=== PATIENT | male | born 1945 | race Caucasian/White ===

== ENCOUNTER 2022-01-26 13:41 | Emergency (ER) | payer MEDICARE, SELFPAY ==
--- NOTE | ~2022-01-26 | XR_ITS ---
EXAMINATION: XR FOOT, LEFT CLINICAL INFORMATION: Dropped water bottle on foot COMPARISON: None TECHNIQUE: AP, lateral, and oblique views of the left foot. FINDINGS: The bones and soft tissues are unremarkable aside from some minimal degenerative changes at the interphalangeal joints. Vascular calcifications are seen. No fracture. Alignment is anatomic. Joint spaces are maintained. XR/XR foot LT min 3V IMPRESSION: No acute finding. No fractures detected.
[2022-01-26 15:27] VITALS: BP 120/60; PULSE 63; RESP 16; TEMP 35.9; O2SAT 99; BMI 21.3
--- NOTE | 2022-01-26 15:43 | ED.LOWEXIN ---
HPI - Extremity Injury (Lower) General Chief Complaint: Extremity Injury, Lower Stated Complaint: L foot inj Time Seen by Provider: 01/26/22 15:40 Source: patient Mode of arrival: ambulatory Limitations: no limitations History of Present Illness MD complaint: foot injury Onset (ago): day(s) (5) Injury: Left: foot and toes Type of Injury: blunt Place: home Severity: moderate Relieving factors: nothing Exacerbating factors: palpation Context: direct blow (dropped a water bottle on foot) Associated symptoms: swelling and other (some mild erythema but also ecchymosis of toes) Other symptoms: none Related Data Previous Rx's Medication Instructions Recorded doxycycline hyclate 100 mg tablet 100 mg PO BID 7 Days #14 tab 01/26/22 Allergies Allergy/AdvReac Type Severity Reaction Status Date / Time iodine [Iodine] Allergy Severe SOB Unverified 06/27/20 16:02 Iodinated Contrast Media Allergy Unknown UNKNOWN Unverified 06/27/20 16:02 [IV Dye, Iodine Containing Contrast ] Penicillins Allergy Unknown SCRATCH Unverified 06/27/20 16:02 TEST Review of Systems Review of Systems: Constitutional : No Fever, No Chills ENT/Mouth : No Ear Pain, No Hoarseness, No sore throat Eyes: No Eye Pain, No Swelling, No Redness, No Foreign Body Cardiovascular : No Chest Pain, No SOB Respiratory : No Cough, No Dyspnea Gastrointestinal : No Nausea, No Vomiting, No Diarrhea, No abdominal Pain Genitourinary : No Dysuria, No Hematuria Musculoskeletal : positive joint pain, No Myalgias, pos Joint Swelling Skin : No Skin lacerations, pos rash Neuro : No Weakness, No Numbness, No Loss of Consciousness, No Dizziness, No Headache Psych : No Anxiety/Panic, No Depression [facility] Past Medical History Attestation statement: The following information was validated with the patient. Medical History Afib FH: mitral valve repair High cholesterol Leg edema Surgical History (Updated 01/26/22 @ 15:36 by Lucita Kamara) Aortic valve replaced History of appendectomy Social History Social History Patient Tobacco Use Status: Never used Tobacco Advance Directives: No Advance Directives Information Provided: No Physical Exam Vital Signs: Vital Signs: Last Vital Signs Temp 96.7 F L 01/26/22 15:27 Pulse 63 01/26/22 15:27 Resp 16 01/26/22 15:27 BP 120/60 01/26/22 15:27 Pulse Ox 99 01/26/22 15:27 BMI result Body Mass Index 21.3 Appearance: Alert. Oriented X3. No acute distress. Eyes: Pupils equal, round and reactive to light. ENT: Pharynx normal. Neck: Normal inspection. Neck supple. CVS: Pulses normal. Respiratory: No respiratory distress. Abdomen: Soft and non-tender. Skin: Skin warm and dry. Normal skin color. Normal skin turgor. Extremities: bilateral legs 1+ pitting edema, L foot on dorsum mild ecchymosis distal on dorsum including 2/3/4th toes with ttp, BCR in all digits SILT intact, on dorsum of foot mild erythema noted with some warmth small 3cm patch Neuro: Oriented X 3. No motor deficit. No sensory deficit. Course Course Course Narrative: will start on doxy for mild erythema MDM - Extremity Injury (Lower) MDM Narrative Medical decision making narrative: 76 yo male with afib on eliquis, MVR, HLD here with c/o L foot pain bruising and mild erythema after dropping a water bottle on his foot 5 days ago. He is NV intact. At this time will obtain xrays to r/o fracture. Given mild erythema will start on doxycycline for possible early cellulitis. Dispo per results and findings. Discharge Plan Discharge Clinical Impression: Cellulitis Qualifiers: Site of cellulitis: extremity Site of cellulitis of extremity: lower extremity Laterality: left Qualified Code(s): L03.116 - Cellulitis of left lower limb Contusion Qualifiers: Encounter type: initial encounter Contusion area: foot Laterality: left Qualified Code(s): S90.32XA - Contusion of left foot, initial encounter Patient Disposition: Home, Self-Care Instructions: Cellulitis (ED), Contusion in Adults (ED) Additional Instructions: return to ED for any worsening symptoms or concerns continue to monitor the redness and make sure it does not spread or go up your leg. monitor for fevers given dose of antibiotics for tonight while in the emergency department do not start until 01/27 AP, lateral, and oblique views of the left foot. FINDINGS: The bones and soft tissues are unremarkable aside from some minimal degenerative changes at the interphalangeal joints. Vascular calcifications are seen. No fracture. Alignment is anatomic. Joint spaces are maintained.? XR/XR foot LT min 3V IMPRESSION: No acute finding. No fractures detected. Prescriptions: New doxycycline hyclate 100 mg tablet 100 mg PO BID 7 Days Qty: 14 0RF Rx Instructions: take with food and a full glass of water
== END 2022-01-26 17:59 | disposition home or self-care (01) ==
PROVIDERS: Emergency Provider Emergency Medicine; PCP Internal Medicine
DX: S90.32XA Contusion of left foot, initial encounter (principal); L03.116 Cellulitis of left lower limb; Y29.XXXA Contact with blunt object, undetermined intent, initial encounter; Y93.9 Activity, unspecified; Y92.9 Unspecified place or not applicable; Y99.9 Unspecified external cause status; Z79.899 Other long term (current) drug therapy
CPT/HCPCS: 73630; 99283

== ENCOUNTER 2022-02-08 10:54 | Emergency (ER) | payer MEDICARE, SELFPAY ==
[2022-02-08 11:02] VITALS: BP 105/33; PULSE 66; RESP 18; TEMP 36.8; O2SAT 96; BMI 22.4
--- NOTE | 2022-02-08 12:30 | ED_ITS ---
HPI - Skin/Abscess/Foreign Bdy General Chief complaint: Skin/Abscess/Foreign Body Stated complaint: l foot inj Time Seen by Provider: 02/08/22 12:20 Source: patient Mode of arrival: ambulatory Limitations: no limitations History of Present Illness HPI narrative: 76 y/o male with recent left foot cellulitis and hematoma, history of MV replacement on Eliquis who presents to the ER for evaluation of left foot discol oration with concern for worsening cellulitis. He completed a course of doxycycline and was recently started on kelfex by his PCP. The area was marked with a marker and he was told to come to the ER if the redness spread byond the marked area. He thinks there is some redness to the lateral aspect of the foot and 2 small areas on the top of the foot. He also reports an itchy red patch on his left hand and red, itchy skin in the right AC here he had blood drawn last week. He has been putting hydrocortisone on it. MD complaint: rash, lesion and discoloration Onset (ago): day(s) Tetanus up to date: yes Location: RUE, L hand and L foot Severity: mild Severity scale (1-10): 3 Quality: aching and pruritic Pain Consistency: intermittent Relieving factors: medication Exacerbating factors: palpation Context: new medication and recent antibiotic Associated symptoms: denies other symptoms Treatments prior to arrival: bandages, OTC topical medication and antibiotic Related Data Previous Rx's Medication Instructions Recorded doxycycline hyclate 100 mg tablet 100 mg PO BID 7 Days #14 tab 01/26/22 Allergies Allergy/AdvReac Type Severity Reaction Status Date / Time iodine [Iodine] Allergy Severe SOB Verified 02/08/22 11:11 Iodinated Contrast Media Allergy Unknown UNKNOWN Verified 02/08/22 11:11 [IV Dye, Iodine Containing Contrast ] Penicillins Allergy Unknown SCRATCH Verified 02/08/22 11:11 TEST Review of Systems Review of Systems: Constitutional: No Fever, No Chills Cardiovascular: No Chest Pain, No SOB, + Edema Respiratory: No Cough, No Sputum, No Wheezing, No dyspnea Gastrointestinal: No Nausea, No Vomiting, No Diarrhea, No abdominal Pain Musculoskeletal: No joint pain, No Myalgias Skin:+Skin Lesions, +rash Neuro: No Weakness, No Numbness, No Dizziness, No Headache Psych: + Anxiety/Panic, No Depression Heme/Lymph: + Bruising, No Lymphadenopathy Endocrine: No Polyuria, No Polydipsia [facility] Past Medical History Medical History Afib FH: mitral valve repair High cholesterol Leg edema Surgical History Aortic valve replaced History of appendectomy Social History Social History Patient Tobacco Use Status: Never used Tobacco Advance Directives: No Advance Directives Information Provided: Yes Physical Exam Vital Signs: Vital Signs: Last Vital Signs Temp 98.3 F 02/08/22 11:02 Pulse 66 02/08/22 11:02 Resp 18 02/08/22 11:02 BP 105/33 L 02/08/22 11:02 Pulse Ox 96 02/08/22 11:02 BMI result Body Mass Index 22.4 Appearance: Alert. Oriented X3. No acute distress. HEENT: normal inspection CVS: Normal heart rate and rhythm. Pulses normal. Respiratory: No respiratory distress. Skin: Skin warm and dry. Normal skin color. Normal skin turgor. No rashes. Extremities: left foot with mild discoloration of the top of the foot that does not extend beyond the marked area, warm to the touch, similar to the lower leg which has chronic venous stasis changes. 2+ PD and DP pulses. no swelling or tenderness. left thumb with a small red patch of excoriated skin, nontender. right AC area with erythematous maclopapular rash Neuro: Oriented X 3. No motor deficit. No sensory deficit.steady gait Course Course Course Narrative: 76 y/o male with left foot hematoma and mild cellulitis presenting to the ER for re-evaluation given persistent redness to the foot and concern for possible worsening infection. On examination there is low clinical suspicion for spreading cellulitis. Exam is more consistent with resolving hematoma with skin changes. Will get labs for patient reassurance. Reevaluation(s) Reevaluation #1: Patient seen and evaluated by Dr. Garcia per patient request. He has no leukocytosis. He was reassured and counseled on management of his foot and other skin issues. His labs are unremarkable. Stable for d/c home with plan to f/u with his PCP in 2 days as scheduled. MDM - Skin/Abscess/Foreign Bdy Lab Data Result diagrams: 02/08/22 13:07 02/08/22 13:07 Labs: Lab Results 02/08/22 02/08/22 02/08/22 Range/Units 13:07 13:07 13:07 WBC 6.5 (4.8-10.8) X10*3/uL RBC 4.01 L (4.60-5.80) X10*6/uL Hgb 12.2 L (14.0-18.0) g/dl Hct 38.7 L (42.0-52.0) % MCV 96.5 (80.0-98.0) fL MCH 30.4 (27.0-33.0) pg MCHC 31.5 (31.0-36.0) g/dl RDW 13.3 (11.0-16.0) % Plt Count 196 (160-400) X10*3/uL MPV 10.2 (9.4-12.4) fL Immature Gran % (Auto) 0.2 (0.0-0.4) % Neut % (Auto) 63.3 (45-73) % Lymph % (Auto) 15.8 L (20-40) % Grundy % (Auto) 16.7 H (2-11) % Eos % (Auto) 3.7 (0-4) % Baso % (Auto) 0.3 (0-2) % Lymph # (Auto) 1.0 L (1.2-4.9) X10*3/uL Grundy # (Auto) 1.1 (0.1-1.2) X10*3/uL Eos # (Auto) 0.2 (0.0-0.4) X10*3/uL Baso # (Auto) 0.0 (0.0-0.2) X10*3/uL Abs Immat Gran (auto) 0.01 (0.00-0.03) X10*3/uL Absolute Neuts (auto) 4.1 (2.0-8.3) x10*3/uL Absolute Nucleated RBC 0.000 (0.0-0.012) X10*3/uL Nucleated RBC % (auto) 0.0 (0.0-0.2) /100WBC ESR 10 (0-15) MM/HR Sodium 142 (135-145) mmol/L Potassium 4.4 (3.3-5.1) mmol/L Chloride 107 (96-108) mmol/L Carbon Dioxide 26 (22-29) mmol/L Anion Gap 13 (12-20) BUN 25 H (9-16) mg/dL Creatinine 1.07 (0.5-1.4) mg/dL Estim Creat Clear Calc 60.2 Estimated GFR > 60 Random Glucose 77 (60-115) mg/dL Calcium 9.2 (8.4-10.2) mg/dL C-Reactive Protein 0.34 (< or = 0.50) mg/dL Critical Care Time Critical Care Time Critical Care Time: No Discharge Plan Discharge Clinical Impression: Contact dermatitis, Hematoma Patient Disposition: Home, Self-Care Instructions: Contact Dermatitis (DC) Additional Instructions: Your blood workup today was unremarkable. The discoloration on your foot is most likely resolving hematoma (or collection of blood from the minor trauma) rather than infection. Recommend completing the course of previously prescribed antibiotics. Elevate your foot when possible. For the redness on your left hand and right arm, recommend using topical hydrocortisone cream to the area 2-3 times per day until improved. Follow up with your provider as scheduled on Wednesday. Prescriptions: No Action doxycycline hyclate 100 mg tablet 100 mg PO BID 7 Days Qty: 14 0RF Rx Instructions: take with food and a full glass of water
[2022-02-08 13:11] LABS: MANUAL DIFF FLAG NO
[2022-02-08 13:12] LABS: Basophils Percent Auto 0.3 % (0-2); Eosinophils Absolute Auto 0.2 X10*3/uL (0.0-0.4); Eosinophils Percent Auto 3.7 % (0-4); Hematocrit 38.7 % (42.0-52.0); Hemoglobin 12.2 g/dl (14.0-18.0); Imm Gran Abs Auto 0.01 X10*3/uL (0.00-0.03); Imm Gran Pct Auto 0.2 % (0.0-0.4); Lymphocytes Percent Auto 15.8 % (20-40); Mean Corpuscular HGB Conc 31.5 g/dl (31.0-36.0); Mean Corpuscular Hemoglobin 30.4 pg (27.0-33.0); Mean Corpuscular Volume 96.5 fL (80.0-98.0); Mean Platelet Volume 10.2 fL (9.4-12.4); Monocytes Absolute Auto 1.1 X10*3/uL (0.1-1.2); Monocytes Percent Auto 16.7 % (2-11); Neutrophils Absolute Auto 4.1 x10*3/uL (2.0-8.3); Neutrophils Percent Auto 63.3 % (45-73); Platelet Count 196 X10*3/uL (160-400); Red Blood Count 4.01 X10*6/uL (4.60-5.80); Red Cell Distribution Width 13.3 % (11.0-16.0); White Blood Count 6.5 X10*3/uL (4.8-10.8)
[2022-02-08] MEDS: cephALEXin 500 MG CAPSULE PO (13:37)
[2022-02-08 13:50] LABS: Anion Gap 13 (12-20); Blood Urea Nitrogen 25 mg/dL (9-16); C Reactive Protein 0.34 mg/dL (< or = 0.50); Calcium 9.2 mg/dL (8.4-10.2); Carbon Dioxide 26 mmol/L (22-29); Chloride 107 mmol/L (96-108); Creatinine Clr Calc Pharmacy 60.2; Erythrocyte Sedimentation Rate 10 MM/HR (0-15); Estimated Glomerular Filt Rate > 60; Glucose Random 77 mg/dL (60-115); Potassium 4.4 mmol/L (3.3-5.1); Sodium 142 mmol/L (135-145)
== END 2022-02-08 14:00 | disposition home or self-care (01) ==
PROVIDERS: Physician Assistant; Emergency Provider Emergency Medicine; PCP Internal Medicine
DX: S90.32XA Contusion of left foot, initial encounter (principal); L25.9 Unspecified contact dermatitis, unspecified cause; I48.91 Unspecified atrial fibrillation; Z95.2 Presence of prosthetic heart valve; Z79.01 Long term (current) use of anticoagulants; X58.XXXA Exposure to other specified factors, initial encounter; Y93.9 Activity, unspecified; Y92.9 Unspecified place or not applicable; Y99.9 Unspecified external cause status
CPT/HCPCS: 36415; 80048; 85025; 85652; 86140; 99283

== ENCOUNTER 2022-04-12 08:47 | Emergency (ER) | payer MEDICARE, SELFPAY ==
--- NOTE | ~2022-04-12 | XR_ITS ---
EXAMINATION: XR CHEST CLINICAL INFORMATION: Infected pacemaker. COMPARISON: October 11, 2015 TECHNIQUE: 2 views of the chest were obtained. FINDINGS: Lungs are hyperinflated with prominence of the pulmonary arteries consistent with some degree of COPD. Dual-chamber pacemaker in place. No gas is seen adjacent to the pacemaker powerpack. There is no acute processes within the chest. No pneumothorax or pleural effusion. Heart normal size. Status post median sternotomy and aortic valve replacement. Cardiac recorder in place. XR/XR chest 2V IMPRESSION: No acute disease.
[2022-04-12 10:57] VITALS: BP 111/43; PULSE 59; RESP 18; TEMP 36.6; O2SAT 97; BMI 21.7
--- NOTE | 2022-04-12 12:10 | ED.GENADULT ---
HPI - General Adult General Chief complaint: General Medical Stated complaint: L shoulder inj Time Seen by Provider: 04/12/22 11:56 Source: patient Mode of arrival: ambulatory Limitations: no limitations History of Present Illness HPI narrative: 76 yold male presents to the ED for evaluation of left chest wound s/p pace maker placement this past wednesday at [facility]. patient states no fever, chills, nausea, vomttng, pus discharge, or redness since surgery. patient states just same ecchymosis since surgery. patent stats no chest pain, shorntess of breath, foul odor. Related Data Home Medications Medication Instructions Recorded Confirmed apixaban 5 mg tablet (Eliquis) 5 mg PO BID 03/05/22 atorvastatin 10 mg tablet 10 mg PO DAILY 03/05/22 clindamycin HCl 150 mg capsule 150 mg PO QID 03/05/22 furosemide 20 mg tablet 20 mg PO DAILY 03/05/22 hydrocortisone 2.5 % topical topical 03/05/22 ointment metoprolol succinate 200 mg 200 mg PO DAILY 03/05/22 tablet,extended release 24 hr vitamins A,C,U-cuec-dkpwcw 14,320 1 cap PO BID 03/05/22 unit-226 mg-200 unit capsule (PreserVision AREDS) Previous Rx's Medication Instructions Recorded doxycycline hyclate 100 mg tablet 100 mg PO BID 7 days #14 tabs 01/26/22 Allergies Allergy/AdvReac Type Severity Reaction Status Date / Time iodine [Iodine] Allergy Severe SOB Verified 03/05/22 16:35 Iodinated Contrast Media Allergy Unknown UNKNOWN Verified 02/08/22 11:11 [IV Dye, Iodine Containing Contrast ] Review of Systems Review of Systems: LEft chest wound evaluation. no complaint Yes all other systems are reviewed and are negative [facility] Past Medical History Medical History Afib FH: mitral valve repair High cholesterol Leg edema Surgical History Aortic valve replaced History of appendectomy Social History Social History Patient Tobacco Use Status: Never used Tobacco Advance Directives: No Advance Directives Information Provided: No Physical Exam ED Vital Signs: Vital Signs - 24 hr 04/12/22 10:57 Temperature 98 F Pulse Rate 59 Respiratory Rate 18 Blood Pressure 111/43 L Pulse Oximetry 97 Oxygen Delivery Method Room Air BMI result Body Mass Index 21.7 Const General: cooperative, healthy appearing, comfortable, no acute distress, well developed, alert and awake Orientation/consciousness: patient oriented x3 [facility] Head: Yes normal to inspection, Yes No palpable skull fracture present, Yes normocephalic, Yes atraumatic and No abrasion Eyes General: appearance normal, both eyes and all related structures Neck Neck: Yes normal visual inspection, Yes full ROM, Yes no lymphadenopathy, Yes no meningeal signs, Yes trachea midline, Yes supple, No anterior neck swelling and No tender Chest Other: Chest palpation & inspection: normal inspection of the chest and normal palpation of entire chest wall Chest/axillae images: 1. healing pace maker wound. no erythema, pus discharge, foul odor, crepitus, or tenderness. Positive for healing ecchymosis Resp Effort & Inspection: normal respiratory effort and able to speak in complete sentences Auscultation: clear to auscultation bilaterally Cardio Jugular venous distension: no JVD Heart sounds: S1 normal heart sound present and S2 normal heart sound present GI Inspection: Yes normal to inspection and No abdominal wall ecchymosis Palpation (GI): Soft to palpation, not firm, nontender and no guarding General: No CVA tenderness and Yes no CVA tenderness Back/Spine/Pelvis Back: no CVA tenderness, No CVA tenderness and No back tenderness Skin General skin exam: no rashes or lesions noted and elasticity normal Neuro General: patient oriented x3, gait normal, tone normal, no meningeal signs and CN's II-XI intact bilaterally Cranial nerves: Yes CN's II-XII intact bilaterally Extrem Other: lower extremities negative for swelling, pitting edema, calf tenderness. General: Yes normal to inspection and Yes full ROM Psych Other: lower extremity negative for swelling, pitting edema, calf tenderness. Appearance: grossly normal, well kempt and not disheveled Course Course Course Narrative: Wound evaluated x-ray ordered. Reevaluation(s) Reevaluation #1: X-ray does not show any displacement, destroyed pacemaker, or any osteomyelitis. No signs of infection. Vital signs are stable. Patient denies any chest pain or shortness of breath. No need for any blood work or any cardiac/ pulmonary evaluation. not suspecting PE, myocardial infarction, or pneumonia. Patient does not have any chest pain, pleurisy, shortness of breath, leg swelling, calf pain, coughing up blood, weakness, or dizziness. Patient informed to follow-up with cardiac surgeon and dispatcher refinery at [facility] Wednesday. Patient agreeable with plan. Time: 12:34 Discharge Plan Discharge Clinical Impression: Encounter for wound re-check, Ecchymosis Patient Disposition: Home, Self-Care Instructions: Wound Healing and Your Diet (ED), Ecchymosis (ED) Additional Instructions: your wound does not look infected. Wound is healing. Return to ED for any redness, pus discharge, foul odor, swelling, fever, chills, chest pain, shortness of breath, leg swelling, calf pain, coughing up blood, or any other concerning symptoms. please follow-up with the dispatcher refinery and cardiac thoracic surgeon at [facility] . Prescriptions: No Action doxycycline hyclate 100 mg tablet 100 mg PO BID 7 Days Qty: 14 0RF Rx Instructions: take with food and a full glass of water Eliquis 5 mg tablet 5 mg PO BID hydrocortisone 2.5 % ointment topical atorvastatin 10 mg tablet 10 mg PO DAILY furosemide 20 mg tablet 20 mg PO DAILY metoprolol succinate 200 mg tablet extended release 24 hr 200 mg PO DAILY clindamycin HCl 150 mg capsule 150 mg PO QID PreserVision AREDS 14,320-226-200 [id number] capsule 1 cap PO BID Interventions: ED Discharge Assessment Last Done: 04/12/22 12:43 Discharge Date/Time: 04/12/22 12:44 Print Language: Ukrainian
== END 2022-04-12 12:44 | disposition home or self-care (01) ==
PROVIDERS: Emergency Provider Emergency Medicine Emergency Medical Services; PCP Internal Medicine
DX: S20.212A Contusion of left front wall of thorax, initial encounter (principal); X58.XXXA Exposure to other specified factors, initial encounter; Y93.9 Activity, unspecified; Y92.9 Unspecified place or not applicable; Y99.9 Unspecified external cause status; Z79.899 Other long term (current) drug therapy; Z48.00 Encounter for change or removal of nonsurgical wound dressing
CPT/HCPCS: 71046; 99282; 99283

== ENCOUNTER 2023-03-20 07:49 | Emergency (ER) | payer MEDICARE, SELFPAY ==
[2023-03-20 07:52] VITALS: BP 124/44; PULSE 65; RESP 19; TEMP 36.6; O2SAT 98; BMI 23.1
--- NOTE | 2023-03-20 08:14 | ED_ITS ---
HPI - Wound/Laceration General Chief Complaint: Wound/Laceration Stated Complaint: arm infection Time Seen by Provider: 03/20/23 07:54 Source: patient Mode of arrival: ambulatory Limitations: no limitations History of Present Illness HPI narrative: Patient had a right arm infection which left a small papule behind after taking 10 days of doxy. Patient concerned that he needed more abx. Onset (ago): week(s) Location: other (right arm) Related Data Home Medications Medication Instructions Recorded Confirmed apixaban 5 mg tablet (Eliquis) 5 mg PO BID 03/05/22 07/10/22 atorvastatin 10 mg tablet 10 mg PO DAILY 03/05/22 07/10/22 clindamycin HCl 150 mg capsule 150 mg PO QID 03/05/22 07/10/22 furosemide 20 mg tablet 20 mg PO DAILY 03/05/22 07/10/22 hydrocortisone 2.5 % topical topical 03/05/22 07/10/22 ointment metoprolol succinate 200 mg 200 mg PO DAILY 03/05/22 07/10/22 tablet,extended release 24 hr vitamins A,C,I-fbhl-frxtkf 4,296 1 cap PO BID 03/05/22 07/10/22 mcg-226 mg-90 mg capsule (PreserVision AREDS) Previous Rx's Medication Instructions Recorded doxycycline hyclate 100 mg tablet 100 mg PO BID 7 days #14 tabs 01/26/22 hydrocortisone 1 % topical cream 1 appl topical TID PRN skin 07/10/22 irritation #28.35 grams Allergies Allergy/AdvReac Type Severity Reaction Status Date / Time iodine [Iodine] Allergy Severe SOB Verified 03/20/23 07:52 Iodinated Contrast Media Allergy Unknown UNKNOWN Verified 03/20/23 07:52 [IV Dye, Iodine Containing Contrast ] Review of Systems Review of Systems: Yes all other systems are reviewed and are negative Neurologic: Denies Sensory deficit (Neuro) [facility] Past Medical History Medical History Afib FH: mitral valve repair High cholesterol Leg edema Surgical History Aortic valve replaced History of appendectomy Social History Social History Patient Tobacco Use Status: Never used Tobacco Advance Directives: No Advance Directives Information Provided: No Physical Exam Vital Signs: Vital Signs: Last Vital Signs Temp 98 F 03/20/23 07:52 Pulse 65 03/20/23 07:52 Resp 19 03/20/23 07:52 BP 124/44 L 03/20/23 07:52 Pulse Ox 98 03/20/23 07:52 O2 Del Method Room Air 03/20/23 07:52 BMI result Body Mass Index 23.1 Const: General: healthy appearing Nutritional Appearance: average body habitus Orientation/consciousness: oriented to person and patient oriented x3 Limitations: no limitations HEENT: Head: Yes normal to inspection Ears: external ears normal General nose exam: Normal external nose present Mouth: Normal oral and palatal mucosa present and oropharynx normal Throat: Yes posterior oropharynx normal Eyes: General: appearance normal, both eyes and all related structures Neck: Other: supple Neck: Yes normal visual inspection Chest: Chest palpation & inspection: normal inspection of the chest Resp: Auscultation: clear to auscultation bilaterally Cardio: Jugular venous distension: no JVD Rate: regular rate Rhythm: regular rhythm Heart sounds: S1 normal heart sound present and S2 normal heart sound present GI: Inspection: Yes normal to inspection Palpation (GI): Soft to palpation, nontender and No hepatosplenomegaly present Auscultation: normal bowel sounds : General: Yes no CVA tenderness Back/Spine/Pelvis: Back: no CVA tenderness Skin: Other: right forearm with well healed papule no infection Neuro: General: oriented to person and patient oriented x3 Cranial nerves: Yes CN's II-XII intact bilaterally Motor exam (neuro): 5/5 motor strength present throughout Sensory Exam: No Sensory deficit (Neuro) Extrem: General: Yes normal to inspection Psych: Appearance: grossly normal Course Reevaluation(s) Reevaluation #1: Patient with well healed wound, no need for further work up Time: 08:19 Medical Decision Making Differential Diagnosis Differential Diagnoses: The differential diagnosis associated with the presentation includes (papule, infection) Tests considered The following testing was considered but not selected: CBC and chem were considered but the arm did not look infected at this time Prescription Management I considered prescription management with: Antibiotic (doxy but not infected at this time) Discharge Plan Discharge Clinical Impression: Benign papule Patient Disposition: Home, Self-Care Prescriptions: No Action doxycycline hyclate 100 mg tablet 100 mg PO BID 7 Days Qty: 14 0RF Rx Instructions: take with food and a full glass of water Eliquis 5 mg tablet 5 mg PO BID hydrocortisone 2.5 % ointment topical atorvastatin 10 mg tablet 10 mg PO DAILY furosemide 20 mg tablet 20 mg PO DAILY metoprolol succinate 200 mg tablet extended release 24 hr 200 mg PO DAILY clindamycin HCl 150 mg capsule 150 mg PO QID PreserVision AREDS 14,320-226-200 [id number] capsule 1 cap PO BID hydrocortisone 1 % cream 1 appl topical TID PRN (Reason: skin irritation) Qty: 28.35 0RF Referrals: Juice Lai MD [Primary Care Provider] - 1 week
== END 2023-03-20 08:50 | disposition home or self-care (01) ==
PROVIDERS: Emergency Provider Emergency Medicine; PCP Internal Medicine
DX: R23.8 Other skin changes (principal); I48.91 Unspecified atrial fibrillation; E78.5 Hyperlipidemia, unspecified; R60.0 Localized edema; Z95.2 Presence of prosthetic heart valve; Z79.01 Long term (current) use of anticoagulants; Z79.02 Long term (current) use of antithrombotics/antiplatelets; Z79.899 Other long term (current) drug therapy
CPT/HCPCS: 99282

== ENCOUNTER 2023-04-24 07:52 | Emergency (ER) | payer MEDICARE, SELFPAY ==
[2023-04-24 08:06] VITALS: BP 120/51; PULSE 69; RESP 18; TEMP 36.4; O2SAT 96; BMI 21.7
[2023-04-24 08:16] VITALS: BP 144/64; PULSE 97; RESP 18; TEMP 36.6; O2SAT 98
--- NOTE | 2023-04-24 08:20 | PC.NURSE ---
Alert and oriented. Arrived from home reporting redness and drainage from umbilicus. Denies fever, chills, sob, or chest pain. Denies pain but states that redness started on thur and has progressively worsened. Reports that same thing happened about 1.5 years ago and MD`s had a hard tie treating infection. Umbilicus red, moist, with small amount of pus noted. Area surrounding umbilicus pink but no tender or war to touch. VSS, afebrile at this time.
--- NOTE | 2023-04-24 08:45 | ED_ITS ---
HPI - General Adult General Chief complaint: General Medical Stated complaint: ? infection around navel Time Seen by Provider: 04/24/23 08:22 Source: patient Mode of arrival: ambulatory History of Present Illness HPI narrative: 77-year-old male who presents with redness and irritation to the umbilical area, this has happened previously approximately 2 years ago, he denies any trauma, fevers, chills. Related Data Home Medications Medication Instructions Recorded Confirmed apixaban 5 mg tablet (Eliquis) 5 mg PO BID 03/05/22 07/10/22 atorvastatin 10 mg tablet 10 mg PO DAILY 03/05/22 07/10/22 clindamycin HCl 150 mg capsule 150 mg PO QID 03/05/22 07/10/22 furosemide 20 mg tablet 20 mg PO DAILY 03/05/22 07/10/22 hydrocortisone 2.5 % topical topical 03/05/22 07/10/22 ointment metoprolol succinate 200 mg 200 mg PO DAILY 03/05/22 07/10/22 tablet,extended release 24 hr vitamins A,C,J-hceb-xazpfv 4,296 1 cap PO BID 03/05/22 07/10/22 mcg-226 mg-90 mg capsule (PreserVision AREDS) Previous Rx's Medication Instructions Recorded doxycycline hyclate 100 mg tablet 100 mg PO BID 7 days #14 tabs 01/26/22 hydrocortisone 1 % topical cream 1 appl topical TID PRN skin 07/10/22 irritation #28.35 grams mupirocin 2 % topical ointment 1 appl topical BID #22 grams 04/24/23 Allergies Allergy/AdvReac Type Severity Reaction Status Date / Time Iodinated Contrast Media Allergy Severe Shortness Verified 04/24/23 08:06 [IV Dye, Iodine Containing of Breath Contrast ] iodine [Iodine] Allergy Severe SOB Verified 04/24/23 08:06 Review of Systems Review of Systems: Pertinent positives and negatives as stated in HPI [facility] Past Medical History Source: nursing notes reviewed Medical History Afib FH: mitral valve repair High cholesterol Leg edema Surgical History Aortic valve replaced History of appendectomy Social History Social History Alcohol intake: former Patient Tobacco Use Status: Never used Tobacco Smoked in Last 30 Days: No Use of substances other than those prescribed or required for medical reasons: No Advance Directives: No Physical Exam ED Vital Signs: Vital Signs - 24 hr 04/24/23 08:06 04/24/23 08:16 Temperature 97.5 F 97.9 F Pulse Rate 69 97 Respiratory Rate 18 18 Blood Pressure 120/51 L 144/64 H Pulse Oximetry 96 98 Oxygen Delivery Method Room Air Room Air BMI result Body Mass Index 21.7 VITAL SIGNS: Reviewed. GENERAL: Well developed, well nourished, in no acute distress. HEAD: Normocephalic/atraumatic EYES: PERRLA, EOMI LUNGS: Normal breath sounds. No adventitious sounds or accessory muscle use. SpO2<98> CARDIOVASCULAR: Regular rate and rhythm without noted murmurs ABDOMEN: Soft, non-tender, non-distended with bowel sounds, there is mild erythema surrounding the umbilicus without purulence or fluid drainage, there was foreign body within the umbilicus. MUSCULOSKELETAL: No tenderness, deformities, or effusions noted on gross inspection. EXTREMITIES: No cyanosis, clubbing or edema. SKIN: Inspection of the skin reveals no rashes NEUROLOGIC: Alert and oriented x 4. Strength and sensation to light touch were grossly intact x 4. Medical Decision Making Medical Decision Making MDM Narrative: 77-year-old male with history and clinical presentation consistent with superficial infection of the umbilicus area no evidence to suggest intraperitoneal fluid drainage, no hernia, no abdominal wall cellulitis, will start patient on course of mupirocin and strongly encouraged him to follow-up with his primary care provider. Differential Diagnosis Differential Diagnoses: The differential diagnosis associated with the presentation includes Please see the discussion above Discharge Plan Discharge Clinical Impression: Superficial skin infection, Umbilical pain Patient Disposition: Home, Self-Care Instructions: Abdominal Pain (ED) Additional Instructions: 1. Resume all home medications as prescribed. 2. You appear to have a superficial infection of your umbilicus (belly button) 3. Please use the medicated ointment as prescribed, clean daily with soap and water as well as use Q-tips to clean out your belly button. 4. Please follow-up with your primary care provider. Return to the ER for any worsening symptoms. Prescriptions: New mupirocin 2 % ointment 1 appl topical BID Qty: 22 0RF No Action doxycycline hyclate 100 mg tablet 100 mg PO BID 7 Days Qty: 14 0RF Rx Instructions: take with food and a full glass of water Eliquis 5 mg tablet 5 mg PO BID hydrocortisone 2.5 % ointment topical atorvastatin 10 mg tablet 10 mg PO DAILY furosemide 20 mg tablet 20 mg PO DAILY metoprolol succinate 200 mg tablet extended release 24 hr 200 mg PO DAILY clindamycin HCl 150 mg capsule 150 mg PO QID PreserVision AREDS 14320-226-200 esnc-mz-fred capsule 1 cap PO BID hydrocortisone 1 % cream 1 appl topical TID PRN (Reason: skin irritation) Qty: 28.35 0RF Referrals: Juice Lai MD [Primary Care Provider] -
--- NOTE | 2023-04-24 08:55 | PC.NURSE ---
Discharge instructions reviewed with patient who verbalized understanding
[2023-04-24] MEDS: Mupirocin 2 % Oint 22 GM TUBE 1 APPL TOPICAL (09:33)
== END 2023-04-24 09:36 | disposition home or self-care (01) ==
PROVIDERS: Emergency Provider Student in an Organized Health Care Education/Training Program; PCP Internal Medicine
DX: L08.9 Local infection of the skin and subcutaneous tissue, unspecified (principal); R10.33 Periumbilical pain; I48.91 Unspecified atrial fibrillation; E78.00 Pure hypercholesterolemia, unspecified; Z95.4 Presence of other heart-valve replacement; Z79.01 Long term (current) use of anticoagulants
CPT/HCPCS: 99283; 99284

== ENCOUNTER 2023-09-03 11:38 | Outpatient (AMB) | payer MEDICARE, SELFPAY ==
[2023-09-03 11:40] VITALS: BP 118/70; PULSE 61; TEMP 36.6; O2SAT 98; BMI 21.7
--- NOTE | 2023-09-03 11:40 | AM.OFFWIN_ITS ---
Intake Vital Signs 09/03/23 11:40 Height 6 ft Weight 160 lb BMI 21.7 BP 118/70 Blood Pressure Location Lt brachial Position Sitting Pulse 61 Pulse Source Pulse Oximeter Temp 97.8 F Temp Source Temporal Artery Scan Pulse Oximetry (%) 98 Oxygen Delivery Method Room Air Intake Visit Reasons: EP Spots on leg and arm concern Intake Note: pt is here for c.o spots on legs and arms Patient Tobacco Use Status: Never used Tobacco Allergies Iodinated Contrast Media [IV Dye, Iodine Containing Contrast ] Allergy (Severe, Verified 09/03/23 13:27) Shortness of Breath iodine [Iodine] Allergy (Severe, Verified 09/03/23 13:27) SOB Do you need a note to return to daycare/school/sports/work: Yes HPI EP Spots on leg and arm concern HPI Details 77 yr old male presents to the office fo r a sick visit. Patient has history of chronic stasis dermatitis in both lower extremities. Has developed a few new lesions over the leg and right forearm. No fever or chills. PFSH Medical History Afib FH: mitral valve repair High cholesterol Leg edema Surgical History Aortic valve replaced History of appendectomy Alcohol intake: former Patient Tobacco Use Status: Never used Tobacco Physical Exam Vital Signs: Last Vital Signs Temp 97.8 F 09/03/23 11:40 Pulse 61 09/03/23 11:40 BP 118/70 09/03/23 11:40 Pulse Ox 98 09/03/23 11:40 Oxygen Delivery Method Room Air 09/03/23 11:40 BMI result Body Mass Index 21.7 Extrem Other: Right and left lower ext: chronic venous stasis with hyperpigmentation changes. Weepy new lesion on the right leg, minimal tenderness. Similar lesion on the right forearm. Assessment & Plan Assessment & Plan (1) Cellulitis: Code(s): L03.90 - Cellulitis, unspecified Plan: Abx ordered. Keep leg elevated. If sx not better, to follow up here. Medications: New cephalexin 500 mg PO BID 14 caps 0RF Coding Level of Care Code Est Pt Level 3 (29300) Diagnoses Cellulitis L03.90
== END 2023-09-03 12:44 | disposition home or self-care (01) ==
PROVIDERS: PCP Internal Medicine; Visit Provider Internal Medicine
DX: L03.90 Cellulitis, unspecified (principal)
CPT/HCPCS: 99213

== ENCOUNTER 2023-09-07 13:29 | Outpatient (AMB) | payer MEDICARE, SELFPAY ==
[2023-09-07 13:56] VITALS: BP 126/64; PULSE 64; TEMP 36.4; O2SAT 100; BMI 21.7
--- NOTE | 2023-09-07 13:56 | MHC.OFFWIV ---
Intake Vital Signs 09/07/23 13:56 Height 6 ft Weight 160 lb BMI 21.7 BP 126/64 Blood Pressure Location Lt brachial Position Sitting Pulse 64 Pulse Source Pulse Oximeter Temp 97.6 F Temp Source Oral Pulse Oximetry (%) 100 Oxygen Delivery Method Room Air Intake Visit Reasons: EP Rash RT arm/not better Intake Note: Pt is here today c/o Rt forearm rash no improvement Patient Tobacco Use Status: Never used Tobacco Allergies Iodinated Contrast Media [IV Dye, Iodine Containing Contrast ] Allergy (Severe, Verified 09/07/23 15:02) Shortness of Breath iodine [Iodine] Allergy (Severe, Verified 09/07/23 15:02) SOB Medication List - Last Reconciled 09/07/23 by Nabil Rodriguez MD apixaban (Eliquis) 5 mg PO BID atorvastatin 10 mg PO DAILY cephalexin 500 mg PO BID furosemide 20 mg PO DAILY metoprolol succinate ER 200 mg PO DAILY vitamins A,C,F-efuw-qurnbu 4,296 mcg-226 mg-90 mg (PreserVision AREDS) 1 cap PO BID HPI EP Rash RT arm/not better HPI Details 77-year-old male presents to the office for a recheck. He was seen last week for a rash and given antibiotics. Unfortunately the rash has not improved. Now he reports new erythematous area in this in the left leg. [facility] Medical History Afib FH: mitral valve repair High cholesterol Leg edema Surgical History Aortic valve replaced History of appendectomy Social History Alcohol intake: former Patient Tobacco Use Status: Never used Tobacco Physical Exam Vital Signs: Last Vital Signs Temp 97.6 F 09/07/23 13:56 Pulse 64 09/07/23 13:56 BP 126/64 09/07/23 13:56 Pulse Ox 100 09/07/23 13:56 Oxygen Delivery Method Room Air 09/07/23 13:56 BMI result Body Mass Index 21.7 Skin Other: Left leg: Patient has chronic skin changes due to venous stasis. A small area is hyperpigmented in multiple papules are seen. There is an erythematous rash on the right wrist with rough overlying skin. Assessment & Plan Assessment & Plan (1) Skin rash: Code(s): R21 - Rash and other nonspecific skin eruption Plan: Today, the rash does not look like cellulitis. Advised the patient to discontinue the antibiotic. Steroid cream and prednisone have been suggested. If symptoms are not improving, patient needs to follow-up with his primary care for a dermatology appointment and a possible skin biopsy. Coding Level of Care Code Est Pt Level 3 (83288) Diagnoses Skin rash R21
== END 2023-09-07 15:14 | disposition home or self-care (01) ==
PROVIDERS: PCP Internal Medicine; Visit Provider Internal Medicine
DX: R21 Rash and other nonspecific skin eruption (principal)
CPT/HCPCS: 99213

== ENCOUNTER 2023-09-15 12:18 | Outpatient (AMB) | payer MEDICARE, SELFPAY ==
--- NOTE | 2023-09-15 12:21 | AM.OFFWIN_ITS ---
Intake Vital Signs 09/15/23 12:23 Height 6 ft Weight 71.214 kg BMI 21.3 BP 114/70 Blood Pressure Location Lt brachial Position Sitting Pulse 65 Pulse Source Pulse Oximeter Temp 97.5 F Temp Source Temporal Artery Scan Pulse Oximetry (%) 99 Oxygen Delivery Method Room Air Intake Visit Reasons: EP, rash on legs and arms Intake Note: pt is here today for rash on leg and arms non let leg started 2 days ago Patient Tobacco Use Status: Never used Tobacco Allergies Iodinated Contrast Media [IV Dye, Iodine Containing Contrast ] Allergy (Severe, Verified 09/15/23 12:22) Shortness of Breath iodine [Iodine] Allergy (Severe, Verified 09/15/23 12:22) SOB Do you need a note to return to daycare/school/sports/work: No HPI HPI Comments History of Present Illness Details 77-year-old male history of atrial fibri llation, hypertensionpresents to the office for a recheck. He was seen a few weeks for a rash and given antibiotics. Since then rash improving however he says has a new small area of red dots to his right anterior hernandez he reports the started a few days ago. Also reports small cut atraumatic in nature to the left hernandez. Patient on Eliquis denies chest pain, shortness of breath. Physical exam 2+ pitting edema to bilateral lower extremities with 3rd spacing and weeping. No overlying erythema, warmth. Patient does have a small scrape to the left anterior hernandez. In small area of what appears to be a healed capillary leak to right anterior hernandez. No current bleeding at this time. History and physical exam concerning for possible CHF, advised for him to follow-up with PCP. Third spacing likely to bilateral lower extremities unlikely arterial or venous occlusion. Rash is improving. Advised him to continue previous treatment. No new interventions needed. No signs of cellulitis, erysipelas, threat to limber neurovascular compromise. I do not suspect pulmonary embolism or ACS at this time no chest pain, shortness of breath. Educated patient on diagnosis and treatment plan, answered all question, patient verbalizes understanding. At this time patient will be discharged home, advised to return with new or worsening symptoms. Educated on worrisome signs and symptoms and when to return. At this time I feel comfortable discharge ho me. [facility] Medical History Leg edema Afib High cholesterol FH: mitral valve repair Surgical History History of appendectomy Aortic valve replaced Social History Alcohol intake: former Patient Tobacco Use Status: Never used Tobacco Review of Systems Const Details: Constitutional : No Weight loss, No Fever, No Chills, No Fatigue, No Malaise ENT/Mouth : No sore throat, No Rhinorrhea Eyes: No Eye Pain, No Swelling, No Redness Cardiovascular : No Chest Pain, No SOB, No Dyspnea on Exertion, No Orthopnea, No Edema, No Palpitations Respiratory : No Cough, No Sputum, No Wheezing Gastrointestinal : No Nausea, No Vomiting, No Diarrhea, No Constipation, No abdominal Pain, No Hematochezia, No Melena Genitourinary : No Dysuria, No Urinary Frequency, No Hematuria, Musculoskeletal : No joint pain, No Myalgias, No Joint Swelling Skin : No Skin Lesions, + rash Neuro : No Weakness, No Numbness, No Dizziness, No Headache Psych : No Anxiety/Panic, No Depression All other systems reviewed and are negative All systems reviewed & are unremarkable except as noted in HPI and below Physical Exam Vital Signs: Last Vital Signs Temp 97.5 F 09/15/23 12:23 Pulse 65 09/15/23 12:23 BP 114/70 09/15/23 12:23 Pulse Ox 99 09/15/23 12:23 Oxygen Delivery Method Room Air 09/15/23 12:23 BMI result Body Mass Index 21.3 vss Appearance: Alert.? Oriented X3.? No acute distress.? Head: Normocephalic, atraumatic, no step-offs or deformities Eyes: Pupils equal, round and reactive to light.? ENT: Pharynx normal.? Neck: Normal inspection.? Neck supple.? CVS: Normal heart rate and rhythm.? Pulses normal.? Respiratory: No respiratory distress.? Breath sounds normal.? Abdomen: Soft and nontender.? Skin: Skin warm and dry.? Normal skin color.? Normal skin turgor.?+ 2+ pitting edema to bilateral lower extremities with 3rd spacing and weeping. No overlying erythema, warmth. Patient does have a small scrape to the left anterior hernandez. In small area of what appears to be a healed capillary leak to right anterior hernandez. No current bleeding at this time. Extremities: + lower extremity edema.? No calf ttp. 5/5 strength to bilateral upper and lower extremities Neuro: Oriented X 3.? No motor deficit.? No sensory deficit. CN 2-12 intact Assessment & Plan Assessment & Plan (1) Skin rash: Code(s): R21 - Rash and other nonspecific skin eruption (2) Lower leg edema: Code(s): R60.0 - Localized edema Plan Take your medications as prescribed. If you were prescribed antibiotics today, it is important that you take your medication to their entirety, do not skip any doses, do not finish them early. Follow-up with your primary care provider this week. Return to the emergency department with new or worsening symptoms. In case of emergency call 911 Coding Level of Care Code Est Pt Level 3 (56797) Diagnoses Skin rash R21 Lower leg edema R60.0
[2023-09-15 12:23] VITALS: BP 114/70; PULSE 65; TEMP 36.4; O2SAT 99; BMI 21.3
== END 2023-09-15 13:33 | disposition home or self-care (01) ==
PROVIDERS: PCP Internal Medicine; Visit Provider Physician Assistant
DX: R21 Rash and other nonspecific skin eruption (principal); R60.0 Localized edema; I48.91 Unspecified atrial fibrillation
CPT/HCPCS: 99213

== ENCOUNTER 2024-03-11 07:39 | Emergency (ER) | payer MEDICARE, SELFPAY ==
--- NOTE | ~2024-03-11 | XR_ITS ---
EXAMINATION: XR TIBIA AND FIBULA, LEFT CLINICAL INFORMATION: Left mid leg cellulitis. Evaluate for osteomyelitis. COMPARISON: None available. TECHNIQUE: AP and lateral views of the left tibia and fibula were obtained. FINDINGS: Bones are diffusely osteopenic. Alignment is normal at the knee and ankle. Tibia and fibula are intact. No fracture, cortical erosions or periostitis. The ankle joint space is maintained. The knee is not optimally visualized on this examination focused on the tibia-fibula as well as due to presence of a knee brace. Osteoarthritis of patellofemoral and medial tibiofemoral compartments with [id number] joint space loss at the medial compartment. Nonspecific soft tissue swelling of the leg and ankle without soft tissue gas. XR/XR tibia fibula LT 2V IMPRESSION: * Nonspecific soft tissue swelling/edema of the leg and ankle without soft tissue gas. * No evidence of osteomyelitis. 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
[2024-03-11 07:41] VITALS: BP 132/36; PULSE 62; RESP 17; TEMP 36.6; O2SAT 98; BMI 21.7
--- NOTE | 2024-03-11 08:30 | ED.WOUNDLAC ---
HPI - Wound/Laceration General Chief Complaint: Wound/Laceration Stated Complaint: LT leg sore Time Seen by Provider: 03/11/24 08:17 Source: patient Mode of arrival: ambulatory Limitations: no limitations History of Present Illness ED Provider: DR. Bowling HPI narrative: 78-year-old male history of bilateral lower extremity wounds that he follow with the Wound [facility] at [facility], for the past 2 days there is a draining of clear fluid from the left leg despite patient stated that it was healing well. No fever, no chills, patient stopped taking doxycycline prescribed by the wound clinic 5 days ago. Related Data Home Medications ?Medication ?Instructions ?Recorded ?Confirmed apixaban 5 mg tablet (Eliquis) 5 mg PO BID 03/05/22 07/10/22 atorvastatin 10 mg tablet 10 mg PO DAILY 03/05/22 07/10/22 furosemide 20 mg tablet 20 mg PO DAILY 03/05/22 07/10/22 metoprolol succinate 200 mg 200 mg PO DAILY 03/05/22 07/10/22 tablet,extended release 24 hr vitamins A,C,H-hizv-jseyxf 4,296 1 cap PO BID 03/05/22 07/10/22 mcg-226 mg-90 mg capsule (PreserVision AREDS) Previous Rx's ?Medication ?Instructions ?Recorded triamcinolone acetonide 0.025 % 1 appl topical BID #15 grams 09/07/23 topical cream doxycycline monohydrate 100 mg 100 mg PO BID #14 tabs 03/11/24 tablet Allergies Allergy/AdvReac Type Severity Reaction Status Date / Time Iodinated Contrast Media Allergy Severe Shortness Verified 03/11/24 07:46 [IV Dye, Iodine Containing of Breath Contrast ] iodine [Iodine] Allergy Severe SOB Verified 03/11/24 07:46 Review of Systems Review of Systems: All other systems are reviewed and are negative Constitutional: Reports as per HPI and Reports no additional constitutional complaints Eyes: Reports as per HPI and Reports no additional eye complaints Reports system reviewed and no additional complaints, except as documented Cardiovascular: Reports as per HPI and Reports no additional cardiovascular complaints Respiratory: Reports as per HPI and Reports no additional respiratory complaints Gastrointestinal: Reports as per HPI and Reports no additional gastrointestinal complaints Genitourinary: Reports no additional female genitourinary complaints Musculoskeletal: Reports no additional musculoskeletal complaints Skin/Breast: Reports system reviewed and no additional complaints, except as docu Psychiatric: Reports no additional psychiatric complaints Endocrine: Reports no additional endocrine complaints Hematologic/Lymphatic: Reports no additional hematologic/lymphatic complaints Allergic/Immunologic: Reports no additional allergic/immunologic complaints Reports system reviewed and no additional complaints, except as documented and Reports Abnormal speech present [facility] Past Medical History Medical History Leg edema Afib High cholesterol FH: mitral valve repair Surgical History History of appendectomy Aortic valve replaced Social History Social History Alcohol intake: former Patient Tobacco Use Status: Never used Tobacco Advance Directives: No Advance Directives Information Provided: No Physical Exam Vital Signs: Vital Signs: Last Vital Signs Temp 98 F 03/11/24 07:41 Pulse 62 03/11/24 07:41 Resp 17 03/11/24 07:41 BP 132/36 L 03/11/24 07:41 Pulse Ox 98 03/11/24 07:41 O2 Del Method Room Air 03/11/24 07:41 BMI result Body Mass Index 21.7 Vital signs have been reviewed and appear to be correct. Blood pressure elevated. Heart rate normal. Respiratory rate normal. Temperature normal. Oxygen saturation normal. Appearance: Alert. Oriented X3. No acute distress. Head: Normal external exam. Normocephalic. Atraumatic. No Ca signs noted. No raccoon eyes noted Eyes: PERRLA. EOMI. Conjunctiva and sclera normal. Eyelids normal. ENT: TM's Normal. Pharynx normal. Uvula midline. Moist mucous membranes. No trismus noted. No drooling noted. No muffled voice noted. Neck: Normal inspection. Neck supple. FROM. No adenopathy. Thyroid Normal. No meningeal signs. No neck mass noted. CVS: Normal heart rate and rhythm. Heart sound normal. No murmurs noted. Pulses normal throughout. Respiratory: No respiratory distress. Painless inspiration. Breath sounds normal. No wheezes/rales/rhonchi noted. Chest nontender. No accessory muscle usage noted or decreased air movement noted. Abdomen: Soft and nontender. Bowel sounds normal in all 4 quadrants. No distention noted. No organomegaly noted. No visible injury noted. Back: No CVA tenderness. Full range of motion noted. Skin: Skin warm and dry. Normal skin color. Normal skin turgor. No rashes/lesions/lacerations noted. Extremities: Mid left leg area of fluid leaking, no redness, no hotness, no fluctuation. Neuro: Oriented X 3. Cranial nerve exam: II-XII are grossly intact No motor deficit. No sensory deficit. Reflexes normal. Course Reevaluation(s) Reevaluation #1: Acute on chronic left leg wound that is leaking exudative fluid, start the patient on doxycycline, leg elevation, and follow-up was wound clinic. Time: 08:35 Medical Decision Making Differential Diagnosis Differential Diagnoses: The differential diagnosis associated with the presentation includes (Cellulitis, osteomyelitis of the left leg, edema.) Admission/Observation Consideration of admission/observation: Escalation of care including admission/observation considered Independent Interpretation I performed an independent interpretation of an: Plain X-Ray (Left leg: No osteomyelitis of the left leg) Radiology Impression Discussion of test interpretation with radiology: I have reviewed the radiologist's reading. (* Nonspecific soft tissue swelling/edema of the leg and ankle without soft tissue gas. * No evidence of osteomyelitis. 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 ) Discharge Plan Discharge Clinical Impression: Cellulitis of left leg Patient Disposition: Home, Self-Care Instructions: Cellulitis (ED) Prescriptions: New doxycycline monohydrate 100 mg tablet 100 mg PO BID Qty: 14 0RF No Action triamcinolone acetonide 0.025 % cream 1 appl topical BID Qty: 15 0RF Eliquis 5 mg tablet 5 mg PO BID atorvastatin 10 mg tablet 10 mg PO DAILY furosemide 20 mg tablet 20 mg PO DAILY metoprolol succinate 200 mg tablet extended release 24 hr 200 mg PO DAILY PreserVision AREDS 14320-226-200 pgxv-ta-hyom capsule 1 cap PO BID Print Language: Greek
[2024-03-11 10:25] VITALS: BP 136/70; PULSE 64; RESP 16; TEMP 36.6; O2SAT 99
== END 2024-03-11 10:25 | disposition home or self-care (01) ==
PROVIDERS: Emergency Provider Emergency Medicine; PCP Internal Medicine
DX: L03.116 Cellulitis of left lower limb (principal); M79.605 Pain in left leg; I48.91 Unspecified atrial fibrillation; E78.00 Pure hypercholesterolemia, unspecified; Z79.01 Long term (current) use of anticoagulants; Z79.02 Long term (current) use of antithrombotics/antiplatelets; Z79.899 Other long term (current) drug therapy
CPT/HCPCS: 73590; 99283

== ENCOUNTER 2025-02-23 11:25 | Emergency (ER) | payer MEDICARE, SELFPAY ==
--- NOTE | ~2025-02-23 | XR_ITS ---
EXAMINATION: XR HAND, LEFT CLINICAL INFORMATION: pain COMPARISON: None available. TECHNIQUE: PA, lateral, and oblique views of the left hand. FINDINGS: There is mild osteopenia. No fracture, dislocation, or suspicious bone lesion. Normal alignment. There is mild osteoarthritis at the first CMC joint. There are early degenerative arthritic changes in the DIP joints of the digits. The MCPs appear normal. Soft tissues demonstrate mild dorsal swelling. XR/XR hand LT 2V IMPRESSION: 1. No acute bony abnormalities. 2. Mild dorsal soft tissue swelling. Electronically signed by: Gustavo Matt MD 02/23/2025 03:36 PM EDT
[2025-02-23 11:39] VITALS: BP 108/51; PULSE 76; RESP 18; TEMP 36.7; O2SAT 97; BMI 21.7
--- NOTE | 2025-02-23 11:39 | ED_ITS ---
HPI - Animal Bite General Chief Complaint: Animal Bite Stated Complaint: cat bite l hand Time Seen by Provider: 02/23/25 14:57 Source: patient Mode of arrival: ambulatory Limitations: no limitations History of Present Illness HPI narrative: This is an 79-year-old man with a past medical history of atrial fibrillation, hypertension, hypercholesterolemia, mitral valve repair on Eliquis who presents for evaluation of cat bite to left hand. Patient states that his neighbor's cat bit him on the back of his left hand yesterday at around 8:00 p.m. Patient states developing pain and redness and is concerned for an infection. He states no fevers or chills. He states that the neighbor's cat is up-to-date with her vaccinations. He states that his own tetanus immunization is up-to-date within the last 5 years. He states no allergies to antibiotics. He states no extremity paresthesias or loss of sensation. Related Data Home Medications ?Medication ?Instructions ?Recorded ?Confirmed apixaban 5 mg tablet (Eliquis) 5 mg PO BID 03/05/22 07/10/22 atorvastatin 10 mg tablet 10 mg PO DAILY 03/05/22 07/10/22 furosemide 20 mg tablet 20 mg PO DAILY 03/05/22 07/10/22 metoprolol succinate 200 mg 200 mg PO DAILY 03/05/22 07/10/22 tablet,extended release 24 hr vitamins A,C,A-ajgs-gvjosv 4,296 1 cap PO BID 03/05/22 07/10/22 mcg-226 mg-90 mg capsule (PreserVision AREDS) Previous Rx's ?Medication ?Instructions ?Recorded triamcinolone acetonide 0.025 % 1 appl topical BID #15 grams 09/07/23 topical cream doxycycline monohydrate 100 mg 100 mg PO BID #14 tabs 03/11/24 tablet amoxicillin 875 mg-potassium 1 tab PO BID 10 days #20 tabs 02/23/25 clavulanate 125 mg tablet Allergies Allergy/AdvReac Type Severity Reaction Status Date / Time Iodinated Contrast Media Allergy Severe Shortness Verified 02/23/25 11:40 [IV Dye, Iodine Containing of Breath Contrast ] iodine [Iodine] Allergy Severe SOB Verified 02/23/25 11:40 Review of Systems 2 Review of Systems: ROS as per HPI [facility] Past Medical History Medical History Leg edema Afib High cholesterol FH: mitral valve repair Surgical History History of appendectomy Aortic valve replaced Social History Social History Alcohol intake: former Patient Tobacco Use Status: Never used Tobacco Advance Directives: No Advance Directives Information Provided: Yes Do you have a plan to hurt others: No Plan Physical Exam ED Vital Signs: Vital Signs - 24 hr 02/23/25 11:39 Temperature 98.1 F Pulse Rate 76 Respiratory Rate 18 Blood Pressure 108/51 L Pulse Oximetry 97 Oxygen Delivery Method Room Air BMI result Body Mass Index 21.7 Gen: NAD, AOx3 HEENT: NCAT, EOMI, normal conjunctiva CV: RRR, 2+ bilateral radial pulses Pulm: CTAB, no increased work of breathing GI: Soft, NTND, no rebound, guarding or rigidity MSK: Bilateral upper extremity compartments are soft, intact motor function to the left upper radial/ulnar/median/anterior interosseous nerves, mildly limited active left hand digit 1-5 flexion secondary to edema and pain Neuro: Grossly non focal, sensation intact to light touch in bilateral upper extremities Skin: Warm, dry, superficial hemostatic skin avulsion approximate 1 cm to the left dorsal aspect hand, erythema/warmth to the dorsal left hand fluctuance/purulence or lymphangitis Course Course Course Narrative: This is a Rapid Medical Exam performed in triage by Miesha Marie PA-C. Full HPI, ROS and PE to be performed by primary ED provider. 79-year-old male with a past medical history AFib, HLD presenting to the ED c/o cat bite to left hand x last night around 1999 by neighbors cat. Cat UTD on vaccinations. Patient UTD on Tetanus. PE: L hand with puncture wound to dorsal aspect with surrounding erythema and swelling. Swelling extends to digits. Unable to fully extend. No tenderness with axial loading. Neurovascularly intact. No pus drainage Plan: Labs, blood cultures Medical Decision Making Medical Decision Making MDM Narrative: Differential diagnosis includes, but is not limited to cat bite wound, cellulitis. Patient is afebrile and hemodynamically stable on room air. Exam is consistent with cellulitis in the setting of cat bite and so patient is provided Unasyn here in the emergency room. I reviewed labs and x-ray as below. Wound is cleansed with soap and water. Triple antibiotic ointment applied along with a Band-Aid. On re-examination, patient is well-appearing and in no acute distress. Patient is counseled on care. There is no indication for further emergent evaluation in this otherwise well-appearing patient as above. ?Patient is provided written and verbal instructions, educational materials, recommendations for outpatient follow-up, prescription for Augmentin, strict return precautions and teach back is performed. ?Patient states understanding and agreement with plan of care. ?Patient is discharged home in stable and improved condition. Admission/Observation Consideration of admission/observation: Escalation of care including admission/observation considered Lab Data MDM Lab Attestation statement: I reviewed the patient's lab results. CBC demonstrates a stable chronic anemia with hemoglobin 12.2 (previous 12.2), metabolic panel unremarkable, CRP 1.15 the setting of cat bite wound with concomitant cellulitis 02/23/25 12:45 02/23/25 12:45 Labs: Lab Results 02/23/25 Range/Units 12:45 WBC 8.6 (4.8-10.8) X10*3/uL RBC 3.96 L (4.60-5.80) X10*6/uL Hgb 12.2 L (14.0-18.0) g/dl Hct 36.8 L (42.0-52.0) % MCV 92.9 (80.0-98.0) fL MCH 30.8 (27.0-33.0) pg MCHC 33.2 (31.0-36.0) g/dl RDW 13.5 (11.0-16.0) % Plt Count 190 (160-400) X10*3/uL MPV 9.6 (9.4-12.4) fL Immature Gran % (Auto) 0.2 (0.0-0.4) % Neut % (Auto) 75.2 H (45-73) % Lymph % (Auto) 8.5 L (20-40) % [place] % (Auto) 14.9 H (2-11) % Eos % (Auto) 1.0 (0-4) % Baso % (Auto) 0.2 (0-2) % Lymph # (Auto) 0.7 L (1.2-4.9) X10*3/uL [place] # (Auto) 1.3 H (0.1-1.2) X10*3/uL Eos # (Auto) 0.1 (0.0-0.4) X10*3/uL Baso # (Auto) 0.0 (0.0-0.2) X10*3/uL Abs Immat Gran (auto) 0.02 (0.00-0.03) X10*3/uL Absolute Neuts (auto) 6.4 (2.0-8.3) x10*3/uL Absolute Nucleated RBC 0.000 (0.0-0.012) X10*3/uL Nucleated RBC % (auto) 0.0 (0.0-0.2) /100WBC ESR 13 (0-15) MM/HR Sodium 140 (135-145) mmol/L Potassium 4.2 (3.3-5.1) mmol/L Chloride 106 (96-108) mmol/L Carbon Dioxide 25 (22-29) mmol/L Anion Gap 13 (12-20) BUN 26 H (9-16) mg/dL Creatinine 0.97 (0.5-1.4) mg/dL Estim Creat Clear Calc 61.3 Estimated GFR > 60 Random Glucose 97 (60-115) mg/dL Calcium 9.1 (8.4-10.2) mg/dL C-Reactive Protein 1.15 H (< or = 0.50) mg/dL Independent Interpretation I performed an independent interpretation of an: Plain X-Ray Interpretation: X-ray of the left hand demonstrates no acute fracture or retained foreign body Radiology Impression Discussion of test interpretation with radiology: I have reviewed the radiologist's reading. Radiologist Impression: XR/XR hand LT 2V IMPRESSION: 1. No acute bony abnormalities. 2. Mild dorsal soft tissue swelling. Electronically signed by: Gustavo Matt MD 02/23/2025 03:36 PM EDT Dictated By: Gustavo Matt MD Signed By: <Electronically signed by Gustavo Matt MD in OV> 02/23/25 [id number] Discharge Plan Discharge Clinical Impression: Cat bite, Cellulitis Patient Disposition: Home, Self-Care Instructions: Cellulitis (ED) Additional Instructions: You were evaluated in the emergency room after a cat bite. You were found to have an infection of your left hand and provided a dose of IV antibiotics here in the emergency room. You are given a prescription for antibiotics. Please take as directed and until completed. Your next dose of antibiotic should be taken tonight February 23, 2025. Your wound was cleaned with soap and water and a triple antibiotic ointment was applied. Please clean your wound with soap and water 2-3x per day. Apply a triple antibiotic ointment such as Neosporin 2-3x per day until heal. You may apply a simple bandaid to keep the wound covered and change as needed. You may ice the area of pain 20 minutes at a time with 20 minutes break in between. Repeat 3 time in a row. Repeat the entire cycle several times a day. Please protect your skin from the ice. You can consider taking 500-650mg Tylenol every 8 hours for pain. Your blood cultures are pending final results. You will be notified of any abnormal results in the next 24-48 hours. Follow up with your primary care doctor in 3-5 days for reevaluation. Return to the emergency room if you develop any new concerns or symptoms including, but not limited to fever or severe pain. Prescriptions: New amoxicillin-pot clavulanate 875-125 mg tablet 1 tab PO BID 10 Days Qty: 20 0RF No Action doxycycline monohydrate 100 mg tablet 100 mg PO BID Qty: 14 0RF triamcinolone acetonide 0.025 % cream 1 appl topical BID Qty: 15 0RF Eliquis 5 mg tablet 5 mg PO BID atorvastatin 10 mg tablet 10 mg PO DAILY furosemide 20 mg tablet 20 mg PO DAILY metoprolol succinate 200 mg tablet extended release 24 hr 200 mg PO DAILY PreserVision AREDS [id number] [id number] capsule 1 cap PO BID Print Language: Wallisian
[2025-02-23 12:50] LABS: MANUAL DIFF FLAG NO
[2025-02-23 12:51] LABS: Basophils Percent Auto 0.2 % (0-2); Eosinophils Absolute Auto 0.1 X10*3/uL (0.0-0.4); Hematocrit 36.8 % (42.0-52.0); Hemoglobin 12.2 g/dl (14.0-18.0); Imm Gran Abs Auto 0.02 X10*3/uL (0.00-0.03); Imm Gran Pct Auto 0.2 % (0.0-0.4); Lymphocytes Absolute Auto 0.7 X10*3/uL (1.2-4.9); Lymphocytes Percent Auto 8.5 % (20-40); Mean Corpuscular HGB Conc 33.2 g/dl (31.0-36.0); Mean Corpuscular Hemoglobin 30.8 pg (27.0-33.0); Mean Corpuscular Volume 92.9 fL (80.0-98.0); Mean Platelet Volume 9.6 fL (9.4-12.4); Monocytes Absolute Auto 1.3 X10*3/uL (0.1-1.2); Monocytes Percent Auto 14.9 % (2-11); Neutrophils Absolute Auto 6.4 x10*3/uL (2.0-8.3); Neutrophils Percent Auto 75.2 % (45-73); Platelet Count 190 X10*3/uL (160-400); Red Blood Count 3.96 X10*6/uL (4.60-5.80); Red Cell Distribution Width 13.5 % (11.0-16.0); White Blood Count 8.6 X10*3/uL (4.8-10.8)
[2025-02-23 13:14] LABS: Anion Gap 13 (12-20); Blood Urea Nitrogen 26 mg/dL (9-16); C Reactive Protein 1.15 mg/dL (< or = 0.50); Calcium 9.1 mg/dL (8.4-10.2); Carbon Dioxide 25 mmol/L (22-29); Chloride 106 mmol/L (96-108); Creatinine Clr Calc Pharmacy 61.3; Estimated Glomerular Filt Rate > 60; Glucose Random 97 mg/dL (60-115); Potassium 4.2 mmol/L (3.3-5.1); Sodium 140 mmol/L (135-145)
[2025-02-23 13:36] LABS: Erythrocyte Sedimentation Rate 13 MM/HR (0-15)
--- OUTSIDE RECORDS SUMMARY | 2025-02-23 14:55 | XMS_ITS | Encounter Summary ---
Author Organization [facility], Address [address] [place] [address] Phone Care Team Providers Care Spinning Mule Tender Name Role Phone Stef Kaufman MD Primary Care Provider [phone] Encounter Details Date Type Department Care Team (Late st Contact Info) Description 06/02/2022 Documentation Only [facility], [address] [place] [id number] Lamont Martin MD [address] [place] [phone] Social History Tobacco Use Types Packs/Day Years Used Date Smoking Tobacco: Never Smokeless Tobacco: Never Sex and Gender Information Value Date Recorded Sex Assigned at Not on file Legal Sex Male 10:53 AM EDT Gender Identity Not on file Sexual Orientation Not on file documented as of this encounter Plan of Treatment Not on file documented as of this encounter Visit Diagnoses Not on filedocumented in this encounter Care Teams Spinning Mule Tender Relationship Specialty Start Date End Date Stef Kaufman MD PCP - General Internal Medicine 03/20/21 documented as of this encounter
--- OUTSIDE RECORDS SUMMARY | 2025-02-23 14:55 | XMS_ITS | Encounter Summary ---
Author Organization [facility], Address [address] [place] [address] Phone Care Team Providers Care Mold Bunch Trimmer Name Role Phone Stef Kaufman MD Primary Care Provider [phone] Encounter Details Date Type Department Care Team (Late st Contact Info) Description 10/24/2021 Documentation Only [facility], [address] [place] [phone] Lamont Martin MD [address] [place] [phone] Social History Tobacco Use Types Packs/Day Years [...] on filedocumented in this encounter Care Teams Mold Bunch Trimmer Relationship Specialty Start Date End Date Stef Kaufman MD PCP - General Internal Medicine 03/20/21 documented as of this encounter
--- OUTSIDE RECORDS SUMMARY | 2025-02-23 14:55 | XMS_ITS ---
Author Organization [facility] Address [address] [address] Care Team Providers Care Hoop Riveting Machine Operator Name Role Phone Juice Lai MD Primary Care Provider Unavailabl e David Maria Teresa Unavailable [phone] Allergies Allergen (clinical drug ingredient) Drug/Non Drug Allergy documented on EMR Reaction Allergy Type Onset Date Status Iodine trouble breathing Drug Allergy Active REASON FOR VISIT Painful nail(s) aggravated by shoes causing difficulty standing/walking, Ingrown Nail, At Risk Footcare Medications Medication SIG (Take, Route, Frequency, Duration) Notes Start Date End Date Status predniSONE 5 MG 1 tablet with food o r milk Orally Once a day for 30 day(s) Not-Taking Lisinopril Not-Takin g Multivitamins Not-Ta clara Aspirin 325 MG 1 tablet Orally Once a day for 30 day(s) Not-Taking Flonase 50 MCG/ACT 2 sprays Nasally Onc e a day for 30 day(s) Not-Taking Amoxicillin 500 MG 4 Orally Once a day for 1 dose 09/19/2011 Not-Taking Ammonium Lactate 12 % 1 application Externally to affected areas of skin to feet except for between the toes Twice a day for 30 days Not-Taking Doxycycline Monohydrate 100 MG 1 capsule Orally Once a day for 14 days 08/03/2024 Not-Taking Eliquis 5 MG as directed Orally Active Doxycycline Monohydrate 100 MG Oral for 14 Days Not-Taking Metoprolol Succinate ER 50 MG 1 tablet Orally Once a day Active Atorvastatin Calcium 10 MG 1 tablet Orally Once a day Active Furosemide 20 MG 1 tablet Orally Once a day Active Social History Tobacco Use: Social History Observation Description Date Details (start date - stop date) Never Smoker NA - NA Tobacco Use/Smoking Question Answer Notes Are you a: nonsmoker Additional Findings: Tobacco Non-User Current no n-smoker Tobacco use other than smoking: Question Answer Notes Are you an other tobacco user? No Vital Signs Height 6ft 1in in 10/19/2024 Weight 160 lbs 10/19/2024 BMI 21.11 kg/m2 10/19/2024 Blood pressure systolic 120 mm Hg 10/19/19 25 Blood pressure diastolic 80 mm Hg 025 Procedures Procedure Date Ordered Date Performed Result Body Sit e 38967-OBRYNRP NAIL, 6 OR MORE 10/19/2024 N/A 55014-Ksyuostw Plate 10/19/2024 N/A Encounters Encounter Location Date Provider Diagnosis [facility] [place] [address] [place] [address] 10/19/2024 Maria Teresa Black Onychomycosis B35.1 ; Ingrown nail L60.0 ; Pain in right toe(s) M79.674 ; Pain in left toe(s) M79.675 and Atherosclerosis of cloverdale artery of both lower extremities, with unspecified presence of clinical manifestation I70.203 Assessments Encounter Date Diagnosis (ICD Code) Assessment Notes Treatment Notes Treatment Clinical Notes Section Notes 10/19/2024 Onychomycosis (ICD-10 - B35.1) 10/19/2024 Ingrown nail (ICD-10 - L60.0) 10/19/2024 Pain in right toe(s) (ICD-10 - M79.674) 10/19/2024 Pain in left toe(s) (ICD-10 - M79.675) 10/19/2024 Atherosclerosis of cloverdale artery of both lower extremities, with unspecified presence of clinical manifestation (ICD-10 - I70.203) Q7(A), Q8(2B), Q9(1B,2C) Plan Of Treatment Pending Test Test Name Order Date 88056-[id number] NAIL, 6 OR MORE 10/19/2024 64986-[id number] Plate 10/19/2024 Next Appt Details Follow Up: 2 Weeks,prn, Reas on: Procedure Notes * Category Sub-Category Detail Notes Nail Avulsion Procedure A fine sterile e levator was placed between the eponychium, nail fold, and nail plate to separate the structures. A sterile nail splitter, and/or sterile 316 blade, was then used to longitudinally section the nail along its entire length through the eponychium to the area under the nail fold. The offending portion of nail was from the nail bed with a rolling action and then removed with a hemostat. No underlying bone was identified. There was minimal bleeding as hemostasis was achieved through the temporary use of either a digital tourniquet or the aforementioned local with epinephrine. A bacitracin sterile dressing was applied. Local wound aftercare instructions were discussed and dispensed. The patient was informed of both conservative and future surgical procedures to prevent recurrence. Tylenol or Motrin was recommended for pain or discomfort (39769) Anesthesia , was accomplished w ith ETHYL CHLORIDE topically per Pt preference Location , Bilateral nail bor mei, T2 Debride Nail 6-10 Nail debridement Due to the cl inical pathology outlined in the exam findings, performance of this nail treatment is medically necessary as its management by an unskilled/untrained nonprofessional would put this patients foot and overall health at risk. Therefore, debridement to affected nail(s), as described in exam ( _TA, T1, T3, T4, T5, T6, T7, T8, T9, __ ), was performed exclusively by the physician of record to reduce/remove overall nail length, girth, thickness, subungual debris, and necrotic tissue, by manual and/or electrical means through the use of a nail nipper and/or dremel-type loader magazine grinder, to a more viable healthy nail plate or bed tissue 6-10 nails in total. Silver nitrate was used for any petechial bleeding as necessary. Definitive antifungal treatment options, both pharmaceutical and surgical, have been reviewed and discussed with the patient. The patient solely prefers the use of intermittent/as needed professional debridement services for their nail condition and understands the need for additional periodic treatments to maintain effectiveness in symptomatic relief - 70251 Progress Notes * Boogie NELSON FDOB:[birth year] (78 yo M)Acc No.[id number]:10/19/2024 Progress Note Patient:?LESLIE Boogie F Provider:?Maria Teresa Hernandez DPM :1945???Age:78 Y???Sex:Male Delmar e:10/19/2024 Address:[address] [place] [address] Had [place] [id number] Pcp:Juice Lai MD Subjective: * Chief Complaints: * ???Painful nail(s) aggravate d by shoes causing difficulty standing/walkingIngrown NailAt Risk Footcare * HPI: ???Painful Nails:?Pt States Last PCP Visit:?Date:?10/02/2024 ???At Risk footcare:?Pt States Last PCP Visit:?Date?10/02/2024 * ROS:?General/Constitutional:?Nausea?denies.?Vomiting?denies.?Hunger Thirst?denies.?Loss appetite?denies.?Chills?denies.?Fatigue?denies.?Fever?denies.?Night Sweats?denies.?Unexplained weight loss?denies.?Unexplained weight gain?denies.?HEENTM:?Dentures?denies.?Dizziness?denies.?Glasses/contacts?denies.?Retinopathy?de nies.?Blurred/double vision?denies.?TMJ?denies.?Discharge/drainage?denies.?Implants?denies.?Sore throat?denies.?Dental implants?denies.?Hard of hearing ?denies.?Difficulty chewing/swallowing/speaking?denies.?Nose bleeds?denies.?Sore mouth?denies.?Respiratory:?On Oxygen?denies.?Pneumonia/pleurisy?denies.?Bronchitis?denies.?Emphysema?denies.?C oughing?denies.?Cough blood?denies.?Shortness of breath?denies.?Wheezing?denies.?Cardiovascular:?Pacemaker?denies.?MVP?denies.?WPW?denies.?CHF?denies.?Heart attack?denies.?Septal defect?denies.?Rapid beat?denies.?Chest pain ?denies.?Atrial Fib.?denies.?Murmur/Palpitations?denies.?Gastrointestinal:?Hemorrhoids?denies.?Stomach/Abdominal pain?denies.?Dark blood stool?denies.?Irritable bowel ?denies.?Constipation?denies.?Diarrhea?denies.?Hematology:?Swelling?denies.?Clots?denies.?Varicose Veins?denies.?Bruising?denies.?Bleeding problem?denies.?Genitourinary:?Blood urine?denies.?Frequent/Painfu/urination/bladder control?denies.?Kidney stones?denies.?Infection (UTI)?denies.?Nephropathy?denies.?sex trans dis (STD)?denies.?Prostate?denies.?Musculoskeletal:?Hammertoes?denies.?Bunions?denies.?Back Pain?denies.?Muscle Cramps/ Resting?denies.?Muscle cramps / walking?denies.?Generalized aches and pains?admits.?Weakness?denies.?Integ.:?Link?denies.?Scars?denies.?Corns/calluses?denies.?Ingrown nails?admits.?Painful nails?admits.?Open Sores?denies.?Rashes?denies.?Neurologic:?Difficulty sleeping?denies.?Brain disorder?denies.?Numbness?denies.?Balance trouble?denies.?Confusion?denies.?Fainting/blackouts?denies.?Tingling?denies.?Tr emors?denies.? * Medical History:? * Surgical History:?appendecto my 2009 * Hospitalization/Major Diagno stic Procedure:?Denies Past Hospitalization * Family History:?Mother: dece ased, poor circulation, foot problems, diagnosed with Family history of arthritis.?Father: , diagnosed with Unspecified heart disease, Family history of arthritis.? * Social History:?Tobacco Use:?Tobacco Use/Smoking?Are you a:?nonsmoker ?Additional Findings: Tobacco Non-User?Current non-smoker ?Tobacco use other than smoking?Are you an other tobacco user??No * Medications:?TakingFurosemid e 20 MG Tablet 1 tablet Orally Once a day Metoprolol Succinate ER 50 MG Tablet Extended Release 24 Hour 1 tablet Orally Once a day Atorvastatin Calcium 10 MG Tablet 1 tablet Orally Once a day Eliquis 5 MG Tablet as directed Orally Taking Furosemide 20 MG Tablet 1 tablet Orally Once a day Taking Metoprolol Succinate ER 50 MG Tablet Extended Release 24 Hour 1 tablet Orally Once a day Taking Atorvastatin Calcium 10 MG Tablet 1 tablet Orally Once a day Taking Eliquis 5 MG Tablet as directed Orally Not-Taking/PRNDoxycycline Monohydrate 100 MG Capsule Oral Ammonium Lactate 12 % Cream 1 application Externally to affected areas of skin to feet except for between the toes Twice a day Doxycycline Monohydrate 100 MG Capsule 1 capsule Orally Once a day Amoxicillin 500 MG Tablet 4 Orally Once a day Aspirin 325 MG Tablet 1 tablet Orally Once a day Flonase 50 MCG/ACT Suspension 2 sprays Nasally Once a day Lisinopril Multivitamins predniSONE 5 MG Tablet 1 tablet with food or milk Orally Once a day Medication List reviewed and reconciled with the patientNot-Taking/PRN Doxycycline Monohydrate 100 MG Capsule Oral Not-Taking/PRN Ammonium Lactate 12 % Cream 1 application Externally to affected areas of skin to feet except for between the toes Twice a day Not-Taking/PRN Doxycycline Monohydrate 100 MG Capsule 1 capsule Orally Once a day Not-Taking/PRN Amoxicillin 500 MG Tablet 4 Orally Once a day Not-Taking/PRN Aspirin 325 MG Tablet 1 tablet Orally Once a day Not-Taking/PRN Flonase 50 MCG/ACT Suspension 2 sprays Nasally Once a day Not-Taking/PRN Lisinopril Not-Taking/PRN Multivitamins Not-Taking/PRN predniSONE 5 MG Tablet 1 tablet with food or milk Orally Once a day Medication List reviewed and reconciled with the patient * Allergies:?Iodine: trouble b reathingyes[Allergies Verified] Objective: * Vitals:?Ht: 6ft 1in, Wt: 160 , BMI: 21.11, Shoe size: 11.5, BP: 120/80 mm Hg, Ht- cm: 185.42 cm, Wt-k.57 kg. * Examination: ???Nails: ?NAILS are:?Elongated, overgrown, dystrophic, lytic, greater than 3mm thick, discolored and friable with crumbly malodorous subungual debris, with pain on palpation, TA, T1, , T3, T4, T5, T6, T7, T8, T9.?Ingrown Nail: ?INSPECTION:?Reveals nail incurvation, pain on palpation, groove hypertrophy, groove ischemia, Bilateral nail borders, T2.?Vascular: ?DP PULSES (B):? 0/4, B/L.?PT PULSES (B):? 0/4, B/L.?CAPILLARY FILL TIME:? delayed, all digits, B/L.?TROPHIC CONDITION-TEXTURE/ELASTICITY/TURGOR/HAIR GROWTH (B):? decreased, fragile, thin, shiny skin, with sparse to absent hair growth, B/L.?TEMPERTURE GRADIENT (C):? decreased, cool to cool, proximal to distal, B/L.?PIGMENTATION:?rubrous, B/L.?EDEMA (C):?, 4/4 , non-pitting , B/L.?ELEV. PALOR:?absent.?CLAUDICATION (C):?denies, B/L.?REST PAIN:?denies, B/L.?PARESTHESIA (C):?absent, B/L.?BURNING (C):?absent, B/L.?Dermatologic: ?SKIN FINDINGS:?Skin shows sign(s) of, dryness, scaling, in a stocking fashion, no fissure(s) present, B/L , Skin exam reveals Keratotic lesion(s) located at , IPJ , TA , T5 , SUB MTH (s) , 1 , , B/L , Heel(s) , B/L.? Assessment: * Assessment: 1.?Ingrown nail - L60.0 (Wendie calderon)???2.?Onychomycosis - B35.1???3.?Pain in right toe(s) - M79.674???4.?Pain in left toe(s) - M79.675???5.?Atherosclerosis of [place] artery of both lower extremities, with unspecified presence of clinical manifestation - I70.203???Notes :Q7(A), Q8(2B), Q9(1B,2C)??? Plan: * Treatment: 2.?Onychomycosis?Procedure: 79785-CSOVLYN NAIL, 6 OR MORE * Procedures:?Debride Nail 6-10:?Nail debridement?Due to the clinical pathology outlined in the exam findings, performance of this nail treatment is medically necessary as its management by an unskilled/untrained nonprofessional would put this patients foot and overall health at risk. Therefore, debridement to affected nail(s), as described in exam ( _TA, T1, T3, T4, T5, T6, T7, T8, T9, __ ), was performed exclusively by the physician of record to reduce/remove overall nail length, girth, thickness, subungual debris, and necrotic tissue, by manual and/or electrical means through the use of a nail nipper and/or dremel-type loader magazine grinder, to a more viable healthy nail plate or bed tissue 6- 10 nails in total. Silver nitrate was used for any petechial bleeding as necessary. Definitive antifungal treatment options, both pharmaceutical and surgical, have been reviewed and discussed with the patient. The patient solely prefers the use of intermittent/as needed professional debridement services for their nail condition and understands the need for additional periodic treatments to maintain effectiveness in symptomatic relief - 61466.?Nail Avulsion:?Location?, Bilateral nail border, T2.?Anesthesia?, was accomplished with ETHYL CHLORIDE topically per Pt preference.?Procedure?A fine sterile elevator was placed between the eponychium, nail fold, and nail plate to separate the structures. A sterile nail splitter, and/or sterile 316 blade, was then used to longitudinally section the nail along its entire length through the eponychium to the area under the nail fold. The offending portion of nail was from the nail bed with a rolling action and then removed with a hemostat. No underlying bone was identified. There was minimal bleeding as hemostasis was achieved through the temporary use of either a digital tourniquet or the aforementioned local with epinephrine. A bacitracin sterile dressing was applied. Local wound aftercare instructions were discussed and dispensed. The patient was informed of both conservative and future surgical procedures to prevent recurrence. Tylenol or Motrin was recommended for pain or discomfort (49684).? * Procedure Codes:?33263 DEBRI DE NAIL, 6 OR MORE, Modifiers: XS 48562 Avulsion Plate, Modifiers: T2 * Follow Up:?2 Weeks,prn * Images: * Sign off status: Completed true * Provider:?aMria Teresa Hernandez DPM Date:?2024 Generated for Randolph salgado/Manuel/Kiel on:?02/23/2025 02:55 PM EDT History and Physical Notes * HPI (History of Present Illness) Category Sub-Category Detail Notes Category Not es Painful Nails Pt States Last PCP Visit: Date:: 10/02/2024 At Risk footcare Pt States Last PCP Visit: Date: 4 Examination Category Sub-Category Detail Notes Category Not es Ingrown Nail INSPECTION: Reveals nail inc urvation, pain on palpation, groove hypertrophy, groove ischemia, Bilateral nail borders, T2 Dermatologic SKIN FINDINGS: Skin shows sign( s) of, dryness, scaling, in a stocking fashion, no fissure(s) present, B/L , Skin exam reveals Keratotic lesion(s) located at , IPJ , TA , T5 , SUB MTH (s) , 1 , , B/L , Heel(s) , B/L Vascular DP PULSES (B): 0/4, B/L PT PULSES (B): 0/4, B/L CAPILLARY FILL TIME: delayed, all digits , B/L TEMPERTURE GRADIENT (C): decreased, cool to cool, proximal to distal, B/L TROPHIC CONDITION-TEXTURE/ELASTICITY/TURGOR/HAIR GROWTH (B): decreased, fragile, thin, shiny skin, wi th sparse to absent hair growth, B/L EDEMA (C): , 4/4 , non-pitting , B/L ELEV. PALOR: absent CLAUDICATION (C): denies, B/L REST PAIN: denies, B/L PIGMENTATION: rubrous, B/L PARESTHESIA (C): absent, B/L BURNING (C): absent, B/L Nails NAILS are: Elongated, overg rown, dystrophic, lytic, greater than 3mm thick, discolored and friable with crumbly malodorous subungual debris, with pain on palpation, TA, T1, , T3, T4, T5, T6, T7, T8, T9
--- OUTSIDE RECORDS SUMMARY | 2025-02-23 14:55 | XMS_ITS | Encounter Summary ---
Author Organization [facility], Address [address] [place] [address] Phone Care Team Providers Care Corporate Safety Coordinator Name Role Phone Stef Kaufman MD Primary Care Provider [phone] Encounter Details Date Type Department Care Team (Late st Contact Info) Description 06/02/2022 Documentation Only [facility], [address] [place] [phone] Lamont Martin MD [address] [place] [phone] Social History Tobacco Use Types Packs/Day Years [...] on filedocumented in this encounter Care Teams Corporate Safety Coordinator Relationship Specialty Start Date End Date Stef Kaufman MD PCP - General Internal Medicine 03/20/21 documented as of this encounter
--- OUTSIDE RECORDS SUMMARY | 2025-02-23 14:55 | XMS_ITS | Encounter Summary ---
Author Organization [facility], Address [address] [place] [address] Phone Care Team Providers Care Youth Development Specialist Name Role Phone Stef Kaufman MD Primary Care Provider [phone] Encounter Details Date Type Department Care Team (Late st Contact Info) Description 06/02/2022 Documentation Only [facility], [address] [place] [id number] Lamont Martin MD [address] [place] [phone] Social History Tobacco Use Types Packs/Day Years [...] on filedocumented in this encounter Care Teams Youth Development Specialist Relationship Specialty Start Date End Date Stef Kaufman MD PCP - General Internal Medicine 03/20/21 documented as of this encounter
--- OUTSIDE RECORDS SUMMARY | 2025-02-23 14:55 | XMS_ITS ---
Author Organization [facility] Address [address] [place] [address] Care Team Providers Care Machine Buffer Name Role Phone Juice Lai MD Primary Care Provider UnavailMaria Teresa Sherman Unavailable [phone] REASON FOR VISIT middle toenail left foot Encounters Encounter Location Date Provider Diagnosis [address] [address] 10/19/2024 Maria Teresa Hernandez Plan Of Treatment No Information Progress Notes * Boogie NELSON FDOB:[birth year] (78 yo M)Acc No.[id number]:10/19/2024 Patient:?Boogie NELSON :1945???Age:78 Y???Sex:Male Address:[address] [place] [address] [place], [id number] * true * Date:? Generated for Randolph salgado/Manuel/eTransmitting on:?02/23/2025 02:55 PM EDT
--- OUTSIDE RECORDS SUMMARY | 2025-02-23 14:55 | XMS_ITS | Clinical Summary ---
Author Organization [facility], Address [address] [place] [address] Phone Care Team Providers Care Humanities Department Chair Name Role Phone Stef Kaufman MD Primary Care Provider [phone] Allergies Active Allergy Reactions Criticality Noted Date Comments Iodine 09/17/2005 Other 07/19/2020 Medications tacrolimus (PROTOPIC) 0.1 % ointment Apply sparingly twice a day to eczema if itchy 0 Active metoprolol succinate XL (TOPROL-XL) 200 MG 24 hr tablet Take 200 mg by mouth 1 (one) time each day 0 Active ketoconazole (NIZORAL) 2 % cream Apply sparingly 1 - 2 times a day to affected areas as needed 0 Active furosemide (LASIX) 20 MG tablet Take 20 mg by mouth 1 (one) time each day Active atorvastatin (LIPITOR) 10 MG tablet Take 10 mg by mouth 1 (one) time each day 9 Active Aspirin Buf,CaCarb-MgCa rb-MgO, 81 MG tablet Take 81 mg by mouth 1 (one) time each day Active apixaban (ELIQUIS) 5 MG tablet Take 5 mg by mouth 0 Active cephalexin (Keflex) 500 MG capsule Take 1 capsule (500 mg total) by mouth 2 (two) times a day 20 capsule 1 Active Active Problems Problem Noted Date Diagnosed Date Chronic venous insufficiency 07/09/2021 Edema 07/09/2021 Osteoporosis 06/27/2021 Coronary arteriosclerosis 06/27/2021 Overview (06/27/2021): 2015 CABG x 2 Paroxysmal atrial fibrillation 05/29/2020 Hypertension 07/26/2017 Hyperlipidemia 09/30/2015 Fibromyalgia 09/17/2005 Immunizations Immunization Administration Dates Next Due Influenza Split High Dose Pr eservative Free IM 06/30/2019,07/28/2016 Influenza TIV (IM) 07/17/2012, 1,07/21/2010,06/29,07/19/2008,07/08/2007,07/20/2006 ,07/29/2005 Pfizer SARS-COV-2 04/15/2021,03/25/2021 Pneumococcal Conjugate 13-Valent 06/01/2018 Pneumococcal Polysaccharide 05/09/2009 Td 07/01/2020,11/24/2010 Family History Medical History Relation Comments Alzheimer's disease Father Arthritis Father Heart disease Father Arthritis Mother Diabetes Mother Heart disease Mother Peripheral vascular disease Mother Relation Status Comments Father Mother Social History Tobacco Use Types Packs/Day Years Used Date Smoking Tobacco: Never Smokeless Tobacco: Never Sex and Gender Information Value Date Recorded Sex Assigned at Not on file Legal Sex Male 10:53 AM EDT Gender Identity Not on file Sexual Orientation Not on file Plan of Treatment Health Maintenance Due Date Last Done Comments Influenza Vaccine (Season Ended) 2025 06/30/2019, 07/28/2016, 07/17/2012, Additional history exists Pneumococcal Vaccine: 50+ Years Completed 06/01/2018, 05/09/2009 Hepatitis B Vaccine Aged Out No longe r eligible based on patient's age to complete this topic [place] [address] Care Teams Humanities Department Chair Relationship Specialty Start Date End Date Stef Kaufman MD PCP - General Internal Medicine 03/20/21
--- OUTSIDE RECORDS SUMMARY | 2025-02-23 14:55 | XMS_ITS | Patient Health Record ---
Author Organization [facility] Lizbeth santiago [place] Address [address] [facility] [place] [address] Care Team Providers Care Forestry Fire Aid Name Role Phone Juice Lai MD Primary Care Provider Maria Teresa Kasper Unavailable [phone] Allergies Allergen (clinical drug ingredient) Drug/Non Drug Allergy documented on EMR Reaction Allergy Type Onset Date Status Iodine trouble breathing Drug Allergy Active Reason For Referral No Information Medications Medication SIG (Take, Route, Frequency, Duration) Notes Start Date End Date Status Ammonium Lactate 12 % 1 application Externally [...] 1 tablet Orally Once a day Active predniSONE 5 MG 1 tablet with food o r milk Orally Once a day for 30 day(s) Not-Taking Atorvastatin Calcium 10 MG 1 tablet Orally Once a day Active Lisinopril Not-Takin g Furosemide 20 MG 1 tablet Orally Once a day Active Multivitamins Not-Ta clara Aspirin 325 MG 1 tablet Orally Once a day for 30 day(s) Not-Taking Flonase 50 MCG/ACT 2 sprays Nasally Onc e a day for 30 day(s) Not-Taking Amoxicillin 500 MG 4 Orally Once a day for 1 dose 09/19/2011 Not-Taking Social History Tobacco Use: Social History Observation Description Date Details (start date - stop date) Never Smoker NA - NA Tobacco Use/Smoking Question Answer Notes Are you a: nonsmoker Additional Findings: Tobacco Non-User Current no n-smoker Alcohol Screen Question Answer Notes Did you have a drink containing alcohol in the p ast year? No Points 0 Interpretation Negative Tobacco use other than smoking: Question Answer Notes Are you an other tobacco user? No Problems Problem Type SNOMED Code ICD Code Onset Dates Problem Status W/U Status Risk Notes Problem Atherosclerosis of [place] artery of both lower extremities, with unspecified presence of clinical manifestation (I70.203) Active confirmed Q7(A), Q8(2B), Q9(1B,2C) Problem Ulcer of toe of right foot (disorder) (554936092 25394189) Skin ulcer of toe of right foot, limited to breakdown of skin (L97.511) Active confirmed Problem Ulcer of toe of left foot (disorder) (265305353 80909925) Skin ulcer of toe of left foot, limited to breakdown of skin (L97.521) Active confirmed Vital Signs Blood pressure diastolic 80 mm Hg 10/19/2024 Height 6ft 1in in 10/19/2024 Blood pressure systolic 120 mm Hg 10/19/2024 Weight 160 lbs 10/19/2024 BMI 21.11 kg/m2 10/19/2024 Procedures Procedure Date Ordered Date Performed Result Body Sit e 44155-OSGVGLS NAIL, 6 OR MORE 08/03/2024 N/A 01356 I&D ABSCESS- SIMPLE,SINGLE 08/03/2024 N/A 05973-IDRJ SKIN LESIONS, OVER 4 08/03/2024 N/A 74264- Debride <25 sq cm 08/17/2024 N/A 08826-ZKFGIZI NAIL, 6 OR MORE 10/19/2024 N/A 35319-Onqackyq Plate 10/19/2024 N/A Encounters Encounter Location Date Provider Diagnosis [facility] [address] [address] 08/03/2024 Maria Teresa Black Abscess of toe, left L02.612 ; Cellulitis of left toe L03.032 ; Atherosclerosis of bridge[place] artery of both lower extremities, with unspecified presence of clinical manifestation I70.203 ; Pain in right toe(s) M79.674 ; Pain in left toe(s) M79.675 ; Onychomycosis B35.1 and Xerosis of skin L85.[address] [facility] [address] 08/17/2024 Maria Teresa Black Skin ulcer of toe of left foot, limited to breakdown of skin L97.[address] [facility] [address] 10/19/2024 Maria Teresa Black Onychomycosis B35.1 ; Ingrown nail L60.0 ; Pain in right toe(s) M79.674 ; Pain in left toe(s) M79.675 and Atherosclerosis of bridge[place] artery of both lower extremities, with unspecified presence of clinical manifestation I70.[address] [facility] [address] [address] 07/31/2024 Maria Teresa David [facility] [address] 07/31/2024 Maria Teresa Black [facility] [address] 08/03/2024 Maria Teresadavid Hernandez [address] [address] 10/19/2024 Maria Teresa Black Assessments Encounter Date Diagnosis (ICD Code) Assessment Notes Treatment Notes Treatment Clinical Notes Section Notes 08/03/2024 Cellulitis of left toe (ICD-10 - L03.032) 08/03/2024 Abscess of toe, left (ICD-10 - L02.612) Patient Educated with: WOUND CARE INSTRUCTIONS. pdf (WOUND CARE INSTRUCTIONS. pdf) 08/17/2024 Skin ulcer of toe of left foot, limited to breakdown of skin (ICD-10 - L97.521) Patient Educated with: WOUND CARE INSTRUCTIONS. pdf (WOUND CARE INSTRUCTIONS. pdf) 10/19/2024 Ingrown nail (ICD-10 - L60.0) 10/19/2024 Onychomycosis (ICD-10 - B35.1) 08/03/2024 Atherosclerosis of bridge[place] artery of both lower extremities, with unspecified presence of clinical manifestation (ICD-10 - I70.203) Q7(A), Q8(2B), Q9(1B,2C) 10/19/2024 Pain in right toe(s) (ICD-10 - M79.674) 10/19/2024 Pain in left toe(s) (ICD-10 - M79.675) 08/03/2024 Pain in right toe(s) (ICD-10 - M79.674) 08/03/2024 Pain in left toe(s) (ICD-10 - M79.675) 08/03/2024 Onychomycosis (ICD-10 - B35.1) 10/19/2024 Atherosclerosis of bridge[place] artery of both lower extremities, with unspecified presence of clinical manifestation (ICD-10 - I70.203) Q7(A), Q8(2B), Q9(1B,2C) 08/03/2024 Xerosis of skin (ICD-10 - L85.3) 08/17/2024 Other Plan Of Treatment Pending Test Test Name Order Date [id number]-AYVYBHL NAIL, 6 OR MORE 08/03/2024 23659-DSZGHBS NAIL, 6 OR MORE 10/19/2024 02583-Karn Destruction, 1-14 07/15/2011 16166-Ebboknss Plate 10/19/2024 75433- Debride <25 sq cm 08/17/2024 29345 I&D ABSCESS- SIMPLE,SINGLE 024 59914-MWXG SKIN LESIONS, OVER 4 08/03/20 Insurance Providers Payer Name Payer Address Payer Phone Subscriber Number Group Number Insured Name Patient Relationship to Insured Coverage Start Date Coverage End Date [facility] [address] [place] [address] [phone] [id number] Boogie Rodriguez Self - patient is the insured Medical (General) History Medical History History ICD Code neuropathy macular degeneration mumps measles chicken pox back, hip, knee pain Arthritis Cataracts Heart disease Poor circulation Replacement Heart Valves Transfusions Surgical History Surgery Date(Month/Year) appendectomy 2008
--- OUTSIDE RECORDS SUMMARY | 2025-02-23 14:55 | XMS_ITS | Encounter Summary ---
Author Organization [facility], Address [address] [place] [address] Phone Care Team Providers Care Medical Laboratory Technicians Name Role Phone Stef Kaufman MD Primary Care Provider [phone] Encounter Details Date Type Department Care Team (Late st Contact Info) Description 06/02/2022 Documentation Only [facility], [address] [place] [phone] Lamont Martin MD [address] [place] [phone] Social History Tobacco Use Types Packs/Day Years [...] on filedocumented in this encounter Care Teams Medical Laboratory Technicians Relationship Specialty Start Date End Date Stef Kaufman MD PCP - General Internal Medicine 03/20/21 documented as of this encounter
--- OUTSIDE RECORDS SUMMARY | 2025-02-23 14:55 | XMS_ITS | Encounter Summary ---
Author Organization [facility], Address [address] [place] [address] Phone Care Team Providers Care Nitrating Acid Mixer Name Role Phone Stef Kaufman MD Primary Care Provider [phone] Encounter Details Date Type Department Care Team (Late st Contact Info) Description 07/16/2022 Documentation Only [facility], [address] [place] [address] Lamont Martin MD [address] [place] [phone] Social History Tobacco Use Types Packs/Day Years [...] on filedocumented in this encounter Care Teams Nitrating Acid Mixer Relationship Specialty Start Date End Date Stef Kaufman MD PCP - General Internal Medicine 03/20/21 documented as of this encounter
--- OUTSIDE RECORDS SUMMARY | 2025-02-23 14:55 | XMS_ITS | Encounter Summary ---
Author Organization [facility], Address [address] [place] [address] Phone Care Team Providers Care Traffic Rate Clerk Name Role Phone Stef Kaufman MD Primary Care Provider [phone] Encounter Details Date Type Department Care Team (Late st Contact Info) Description 2021 Documentation Only [facility], [address] [place] [phone] Lamont Martin MD [address] [place] [phone] Social History Tobacco Use Types Packs/Day Years [...] on filedocumented in this encounter Care Teams Traffic Rate Clerk Relationship Specialty Start Date End Date Stef Kaufman MD PCP - General Internal Medicine 03/20/21 documented as of this encounter
--- OUTSIDE RECORDS SUMMARY | 2025-02-23 14:55 | XMS_ITS ---
Author Organization [facility] Address [address] [place] [address] Care Team Providers Care Well Point Pumping Supervisor Name Role Phone Juice Lai MD Primary Care Provider UnavailMaria Teresa Sherman [phone] REASON FOR VISIT Seen Sooner Encounters Encounter Location Date Provider Diagnosis [facility] [address] [place] [address] 09/21/2024 Maria Teresa Hernandez Plan Of Treatment No Information Progress Notes * Boogie NELSON FDOB:[birth year] (79 yo M)Acc No.[id number]:09/21/2024 Progress Notes Patient:?LESLIE Boogie Brynn Provider:?Maria Teresa Hernandez DPM :1945???Age:78 Y???Sex:Male Delmar e:09/21/2024 Address:[address] [place] [address] Alan [place] [id number] Pcp:Juice Lai MD Subjective: * Chief Complaints: * ???1. Seen Sooner. * Medical History:? Objective: * Vitals:? Assessment: Plan: * Treatment: * Images: * The named appointment provid er may or may not be the originator of this progress note, and it is not deemed complete until electronically signed by the appointment provider. Sign off status: Pending * Provider:Charley Hernandez DPM Date:?2023 Generated for Hernani ng/Fafortinog/eTransmitting on:?02/23/2025 02:55 PM EDT
[2025-02-23] MEDS: Ampicillin Sodium/Sulbactam Na 3 GM in 0.9 % Sodium Chloride 100 ML IV (15:49)
[2025-02-23 15:55] VITALS: BP 126/58; PULSE 67; RESP 18; O2SAT 99
[2025-02-23] MEDS: Bacitracin Oint 0.9 GM PACKET 1 APPL TOPICAL (16:10)
--- NOTE | 2025-02-23 16:20 | PC.NURSE ---
Pt. hand cleaned with soap and water, per .
[2025-02-23 16:22] VITALS: BP 126/58; PULSE 67; RESP 18; TEMP 36.9; O2SAT 99
== END 2025-02-23 16:23 | disposition home or self-care (01) ==
PROVIDERS: Physician Assistant; Emergency Provider Emergency Medicine; PCP Internal Medicine
DX: S61.452A Open bite of left hand, initial encounter (principal); W55.01XA Bitten by cat, initial encounter; Y93.89 Activity, other specified; Y92.9 Unspecified place or not applicable; Y99.9 Unspecified external cause status
CPT/HCPCS: 36415; 73120; 80048; 85025; 85652; 86140; 87040; 99284; J0295

== ENCOUNTER → 2025-02-23 15:11 | Outpatient (BNV) | payer MEDICARE, SELFPAY | PROVIDERS: Emergency Provider Emergency Medicine; PCP Internal Medicine; Visit Provider Radiology Diagnostic Radiology | DX: M79.642 Pain in left hand (principal) | CPT/HCPCS: 73120 ==

== ENCOUNTER 2025-02-24 13:38 | Inpatient (IN) | payer MEDICARE, SELFPAY ==
--- NOTE | 2025-02-24 13:41 | ED_ITS ---
HPI - Skin/Abscess/Foreign Bdy General Chief complaint: Animal Bite Stated complaint: Cat bite L hand, seen yesterday Time Seen by Provider: 02/24/25 14:25 Source: patient Mode of arrival: ambulatory Limitations: no limitations History of Present Illness ED Provider: TRISTA LÓPEZ PA-C HPI narrative: 79 year old male with pmhx significant for atrial fibrillation, hypertension, HLD, mitral valve repair on Eliquis presents to the ED today for evaluation of increased swelling/ redness to left hand. Patient states that his neighbor's cat bit him on the back of his left hand 2 nights ago. He quickly began developing pain and redness. He was evaluated at our facility yesterday for this. He was given a dose of IV antibiotics and discharged home on Augmentin. He has taken two doses of Augmentin. He presents today stating that the redness and swelling is now worsening. Admits to increased pain with any movement of the left wrist. Denies any drainage from the puncture wounds. He feels as though the infection is worsening. He was advised by provider yesterday to return with any worsening symptoms. Denies any fever, chills. No numbness/tingling/weakness of the left upper extremity. Related Data Home Medications ?Medication ?Instructions ?Recorded ?Confirmed apixaban 5 mg tablet (Eliquis) 5 mg PO BID 03/05/22 07/10/22 atorvastatin 10 mg tablet 10 mg PO DAILY 03/05/22 07/10/22 furosemide 20 mg tablet 20 mg PO DAILY 03/05/22 07/10/22 metoprolol succinate 200 mg 200 mg PO DAILY 03/05/22 07/10/22 tablet,extended release 24 hr vitamins A,C,G-nyli-yaiktg 4,296 1 cap PO BID 03/05/22 07/10/22 mcg-226 mg-90 mg capsule (PreserVision AREDS) Previous Rx's ?Medication ?Instructions ?Recorded triamcinolone acetonide 0.025 % 1 appl topical BID #15 grams 09/07/23 topical cream doxycycline monohydrate 100 mg 100 mg PO BID #14 tabs 03/11/24 tablet amoxicillin 875 mg-potassium 1 tab PO BID 10 days #20 tabs 02/23/25 clavulanate 125 mg tablet Allergies Allergy/AdvReac Type Severity Reaction Status Date / Time Iodinated Contrast Media Allergy Severe Shortness Verified 02/24/25 13:44 [IV Dye, Iodine Containing of Breath Contrast ] iodine [Iodine] Allergy Severe SOB Verified 02/24/25 13:44 Review of Systems 2 Review of Systems: Yes all other systems are reviewed and are negative [facility] Past Medical History Attestation statement: The following information was validated with the patient. Source: old records reviewed and nursing notes reviewed Medical History Leg edema Afib High cholesterol FH: mitral valve repair Surgical History History of appendectomy Aortic valve replaced Social History Social History Alcohol intake: former Patient Tobacco Use Status: Never used Tobacco Advance Directives: No Advance Directives Information Provided: No Physical Exam 2 Vital Signs: Vital Signs: Last Vital Signs Temp 98.1 F 02/24/25 13:42 Pulse 75 02/24/25 13:42 Resp 18 02/24/25 13:42 BP 128/63 02/24/25 13:42 Pulse Ox 95 02/24/25 13:42 O2 Del Method Room Air 02/24/25 13:42 BMI result Body Mass Index 22.3 vital signs stable, afebrile General: Well appearing, in no acute distress. Skin:+see photos beow Head: Normocephalic, atraumatic. EENT: Hearing is intact b/l. Conjunctiva clear. PERRLA. EOM intact. Moist mucous membranes.? Neck: Supple without LAD Cardiac: Chest wall symmetric. RRR. Lungs: Normal respiratory effort without accessory muscle use. CTA bilaterally. Abdomen: Soft, non-tender, non-distended. No rebound tenderness or guarding. Positive BS x4. Ext: +see photos below. noted erythema and swelling to dorsal aspect of left hand/wrist. No streaking. No noted purulent discharge from puncture wound. warm, ttp. no palpable fluctuance. Limited ROM to left wrist on flexion and extension of left wrist. pain on extension of all digits. unable to make a fist. radial pulse intact. Neuro: AOx3. Normal speech. Ambulating with steady gait. Course Course Course Narrative: Lynn Osullivan DINING ROOM SUPERVISOR 02/24/25 1342 This is a rapid medical exam. Deferred additional HPI, ROS, PE to primary provider. 79-year-old man with a past medical history of atrial fibrillation, hypertension, hypercholesterolemia, mitral valve repair on right hand dominant seen here yesterday cat bite to left hand which occurred the . Received one dose of IV antibiotics yesterday. Discharged home with augmentin. Took 2 doses since being home. Here due to increased swelling and limited ROM. No fever. Will obtain labs. VSS Reevaluation(s) Reevaluation #1: 1610 -- CBC without leukocytosis or left shift. normocytic anemia, chronic when compared to priors. chemistry without acute electroyte abnormaliy requiring intervention. BUN elevated to 28, normal creatinine. Random glucose 120. CRP upward trending 4.29 from 1.15 yesterday. ESR wnl. xr left hand obtained yesterday 02/24/25 shows mild dorsal soft tissue swelling without osseous lesions. > I have reviewed Dr. Solomon's note from yesterday. There is no photo of bite to compare to. Given worsening swelling/erythema despite 3 doses of abx, I feel he would benefit from admission for continued IV treatment. patient agreeable. I did reach out to ortho Mikael who has no further recommendations. will reach out to hospitalist for admission. unasyn + ivf ordered. blood cultures pending. 1628 -- spoke with hospitalist BRODERICK douglas who will be placing admission orders. Medications Administered Discontinued Medications Generic Name Dose Route Start Last Admin Trade Name Freq PRN Reason Stop Dose Admin Ampicillin Sodium/Sulbactam 100 mls @ 200 mls/hr 02/24/25 15:08 02/24/25 15:38 Sodium 3 gm/ Sodium Chloride IV 02/24/25 15:37 200 mls/hr ONCE ONE Administration Medical Decision Making Medical Decision Making MDM Narrative: 79 year old male with pmhx significant for atrial fibrillation, hypertension, HLD, mitral valve repair on presents to the ED today for evaluation of increased swelling/ redness to left hand. Vital signs stable. Afebrile. He is nontoxic-appearing and in no acute distress. On exam of left hand, there is noted erythema and swelling to dorsal aspect of left hand/wrist. No streaking. No noted purulent discharge from puncture wound. warm, ttp. no palpable fluctuance. Limited ROM to left wrist on flexion and extension of left wrist. pain on extension of all digits. unable to make a fist. radial pulse intact. Differential diagnosis includes cellulitis, cat bite, osteomyelitis, abscess, tenosynovitis Screening labs obtained from triage. Inflammatory markers, lactic and blood cultures added. Differential Diagnosis Differential Diagnoses: The differential diagnosis associated with the presentation includes as above Admission/Observation Consideration of admission/observation: Escalation of care including admission/observation considered Patient admitted to medicine for management of cellulitis secondary to cat bite with failure of outpatient treatment. Consult Healthcare Provider Management of the patient was discussed with: Hospitalist (stella romano pa-c) and Transmitter Supervisor (mikael zapata) Lab Data MDM Lab Attestation statement: I reviewed the patient's lab results. as above. 02/24/25 14:05 02/24/25 14:05 Labs: Lab Results 02/24/25 02/24/25 Range/Units 14:05 15:24 WBC 5.8 (4.8-10.8) X10*3/uL RBC 3.94 L (4.60-5.80) X10*6/uL Hgb 12.1 L (14.0-18.0) g/dl Hct 36.9 L (42.0-52.0) % MCV 93.7 (80.0-98.0) fL MCH 30.7 (27.0-33.0) pg MCHC 32.8 (31.0-36.0) g/dl RDW 13.5 (11.0-16.0) % Plt Count 181 (160-400) X10*3/uL MPV 10.0 (9.4-12.4) fL Immature Gran % (Auto) 0.3 (0.0-0.4) % Neut % (Auto) 63.2 (45-73) % Lymph % (Auto) 15.7 L (20-40) % [place] % (Auto) 18.3 H (2-11) % Eos % (Auto) 2.2 (0-4) % Baso % (Auto) 0.3 (0-2) % Lymph # (Auto) 0.9 L (1.2-4.9) X10*3/uL [place] # (Auto) 1.1 (0.1-1.2) X10*3/uL Eos # (Auto) 0.1 (0.0-0.4) X10*3/uL Baso # (Auto) 0.0 (0.0-0.2) X10*3/uL Abs Immat Gran (auto) 0.02 (0.00-0.03) X10*3/uL Absolute Neuts (auto) 3.7 (2.0-8.3) x10*3/uL Absolute Nucleated RBC 0.000 (0.0-0.012) X10*3/uL Nucleated RBC % (auto) 0.0 (0.0-0.2) /100WBC ESR 14 (0-15) MM/HR Sodium 141 (135-145) mmol/L Potassium 4.5 (3.3-5.1) mmol/L Chloride 107 (96-108) mmol/L Carbon Dioxide 24 (22-29) mmol/L Anion Gap 15 (12-20) BUN 28 H (9-16) mg/dL Creatinine 0.97 (0.5-1.4) mg/dL Estim Creat Clear Calc 63.0 Estimated GFR > 60 Random Glucose 120 H (60-115) mg/dL Lactic Acid 1.2 (0.5-2.0) mmol/L Calcium 9.0 (8.4-10.2) mg/dL C-Reactive Protein 4.29 H (< or = 0.50) mg/dL Independent Interpretation I performed an independent interpretation of an: Plain X-Ray Interpretation: xr from 02/23/25 showing soft tissue swelling, no osseous involvement Radiology Impression Discussion of test interpretation with radiology: I have reviewed the radiologist's reading. Radiologist Impression: Procedure(s): XR hand LT 2V Accession Number(s): [id number] cc: Juice Lai MD; Jason Solomon MD~ EXAMINATION: XR HAND, LEFT CLINICAL INFORMATION: pain COMPARISON: None available. TECHNIQUE: PA, lateral, and oblique views of the left hand. FINDINGS: There is mild osteopenia. No fracture, dislocation, or suspicious bone lesion. Normal alignment. There is mild osteoarthritis at the first CMC joint. There are early degenerative arthritic changes in the DIP joints of the digits. The MCPs appear normal. Soft tissues demonstrate mild dorsal swelling. XR/XR hand LT 2V IMPRESSION: 1. No acute bony abnormalities. 2. Mild dorsal soft tissue swelling. Electronically signed by: Gustavo Matt MD 02/23/2025 03:36 PM EDT External Record Review External record reviewed: Inpatient record Prescription Management I considered prescription management with: Pain Medication and Antibiotic Social Determinants Patient?s care significantly limited by Social Determinants of Health including: Other Social Determinant of Health Critical Care Time Critical Care Time Critical Care Time: Yes Total Critical Care Time: 37 Attestation: Critical care time in the amount of 37 minutes has been provided to the patient in terms of direct patient care, frequent reevaluation, consultation with hospitatlist and ortho, review and interpretation of medical data and results, and management of potentially life-threatening conditions. This is all outside of any medical procedures. Discharge Plan Discharge Clinical Impression: Cat bite, Cellulitis Patient Disposition: Admitted As Inpatient Print Language: Occitan
[2025-02-24 13:42] VITALS: BP 128/63; PULSE 75; RESP 18; TEMP 36.7; O2SAT 95; BMI 22.3
[2025-02-24 14:09] LABS: MANUAL DIFF FLAG NO
[2025-02-24 14:11] LABS: Basophils Percent Auto 0.3 % (0-2); Eosinophils Absolute Auto 0.1 X10*3/uL (0.0-0.4); Eosinophils Percent Auto 2.2 % (0-4); Hematocrit 36.9 % (42.0-52.0); Hemoglobin 12.1 g/dl (14.0-18.0); Imm Gran Abs Auto 0.02 X10*3/uL (0.00-0.03); Imm Gran Pct Auto 0.3 % (0.0-0.4); Lymphocytes Absolute Auto 0.9 X10*3/uL (1.2-4.9); Lymphocytes Percent Auto 15.7 % (20-40); Mean Corpuscular HGB Conc 32.8 g/dl (31.0-36.0); Mean Corpuscular Hemoglobin 30.7 pg (27.0-33.0); Mean Corpuscular Volume 93.7 fL (80.0-98.0); Monocytes Absolute Auto 1.1 X10*3/uL (0.1-1.2); Monocytes Percent Auto 18.3 % (2-11); Neutrophils Absolute Auto 3.7 x10*3/uL (2.0-8.3); Neutrophils Percent Auto 63.2 % (45-73); Platelet Count 181 X10*3/uL (160-400); Red Blood Count 3.94 X10*6/uL (4.60-5.80); Red Cell Distribution Width 13.5 % (11.0-16.0); White Blood Count 5.8 X10*3/uL (4.8-10.8)
[2025-02-24 14:24] LABS: Anion Gap 15 (12-20); Blood Urea Nitrogen 28 mg/dL (9-16); C Reactive Protein 4.29 mg/dL (< or = 0.50); Carbon Dioxide 24 mmol/L (22-29); Chloride 107 mmol/L (96-108); Estimated Glomerular Filt Rate > 60; Glucose Random 120 mg/dL (60-115); Potassium 4.5 mmol/L (3.3-5.1); Sodium 141 mmol/L (135-145)
[2025-02-24 14:45] LABS: Erythrocyte Sedimentation Rate 14 MM/HR (0-15)
--- OUTSIDE RECORDS SUMMARY | 2025-02-24 14:54 | XMS_ITS | Encounter Summary ---
Author Organization [facility] Address [address] [place] [address] Care Team Providers Care Director Law Enforcement Name Role Phone Stef Kaufman MD Primary Care Provider [phone] Mario Alberto Joseph MD Unavailable [phone] Shilpa Thompson PA-C Unavailable Unavailab [facility], Pcp Primary Care Provider Unavailabl e Reason for Referral * Non DIANE (Routine) - Authorized/Booked Specialty Diagnoses / Procedures Referred By Michelle putnam Referred To Contact Nephrology Procedures REFERRAL TO NEPHROLOGY Stef Kaufman MD [address] [place] [address] [facility] [address] Referral ID Status Reason Start Date Expiration Date V isits Requested Visits Authorized [id number] Authorized/ Booked 04/29/2019 04/28/2020 1 1 Encounter Details Date Type Department Care Team Description 04/29/2019 Orders [place] [address] Stef Kaufman MD [address] [place] [address] Elevated LFTs (Primary Dx); CKD (chronic kidney disease) stage 3, GFR 30-59 ml/min ([facility]) Social History Tobacco Use Types Packs/Day Years Used Date Smoking Tobacco: Never Smokeless Tobacco: Never Alcohol Use Standard Drinks/Week Comments No 0 (1 standard drink = 0.6 oz pur e alcohol) Sex Assigned at Date Recorded Not on file Job Start Date Occupation Industry Not on file Not on file Not on file documented as of this encounter Plan of Treatment Not on file documented as of this encounter Results * (ABNORMAL) COMPREHENSIVE METABOLIC PANEL (05/09/2019 11:10 AM EDT) GLUCOSE 96 70 - 100 mg/dL 05/09/2019 1:50 PM EDT [facility] Comment:Reference range appl icable to fasting specimens only Blood Urea Nitrogen 33(H) 5 - 25 mg/dL 05/09/2019 1:50 PM EDT [facility] CREAT 1.33(H) 0.7 - 1.3 mg/dL 05/09/2019 1:50 PM EDT [facility] GLOMERULAR FILTRATION RATE 52 05/09/2019 1:50 PM EDT [facility] Comment: If patient is -Austrian, multiply result by 1.21 Chronic Kidney Disease: < 60 ml/min/1.73 square meters Kidney Failure: < 15 ml/min/1.73 square meters NA 142 133 - 145 mmol/L 05/09/2019 1:50 PM EDT [facility] K 5.0 3.5 - 5.5 mmol/L 05/09/2019 1:50 PM EDT [facility] CL 107 96 - 110 mmol/L 05/09/2019 1:50 PM EDT [facility] CARBON DIOXIDE (CO2) 31 21 - 32 mmol/L 05/09/2019 1:50 PM EDT [facility] ANION GAP 4 3 - 11 05/09/2019 1:50 PM EDT [facility] CALCIUM 9.2 8.5 - 10.5 mg/dL 05/09/2019 1:50 PM EDT [facility] Albumin 3.5 3.2 - 5.0 G/dL 05/09/2019 1:50 PM EDT [facility] BILIRUBIN TOTAL 0.5 0.0 - 1.4 mg/dL 05/09/2019 1:50 PM EDT [facility] SGOT 51(H) 10 - 42 U/L 05/09/2019 1:50 PM EDT [facility] SGPT 52 10 - 60 U/L 05/09/2019 1:50 PM EDT [facility] ALK PHOS 146(H) 42 - 121 U/L 05/09/2019 1:50 PM EDT [facility] TOTAL PROTEIN (TP) 6.4 6.0 - 8.0 G/dL 05/09/2019 1:51 PM EDT [facility] 05/09/2019 11:1 0 AM EDT 05/09/2019 11:10 AM EDT Stef Kaufman MD LAB [facility] documented in this encounter Visit Diagnoses Diagnosis Elevated LFTs- Primary Other abnormal blood chemistry CKD (chronic kidney disease) stage 3, GFR 30-59 ml/min (HCC) Chronic kidney disease, Stage III (moderate) documented in this encounter Care Teams Director Law Enforcement Relationship Specialty Start Date End Date Stef Kaufman MD [address] [place] [address] PCP - General 12/05/09 02/09/23 [facility], Pcp [address] [place] [address] PCP - General Internal Medicine 02/10/23 Mario Alberto Joseph MD [address] [place] [address] Specialist Cardiovascular Disease 03/28/21 Shilpa Thompson PA-C [address] [place] [address] Cardiology 03/28/21 documented as of this encounter
--- OUTSIDE RECORDS SUMMARY | 2025-02-24 14:54 | XMS_ITS | Encounter Summary ---
Author Organization [facility] Address [address] [place] [address] Care Team Providers Care Title Insurance Agent Name Role Phone Stef Kaufman MD Primary Care Provider [phone] Mario Alberto Joseph MD Unavailable [phone] Shilpa Thompson PA-C Unavailable Unavailab [facility], Pcp Primary Care Provider Unavailabl e Encounter Details Date Type Department Care Team Description 04/21/2016 Hospital Medical Records [address] [place] [address] Social History Tobacco Use Types Packs/Day Years [...] on filedocumented in this encounter Care Teams Title Insurance Agent Relationship Specialty Start Date End Date Stef Kaufman MD [address] [place] [address] PCP - General 12/05/09 02/09/23 [facility], Pcp [address] [facility] [address] [place] [address] PCP - General Internal Medicine 02/10/23 Mario Alberto Joseph MD 300 [facility] [address] [place] [address] Specialist Cardiovascular Disease 03/28/21 Shilpa Thompson PA-C [facility] [address] [place] [address] Cardiology 03/28/21 documented as of this encounter
--- OUTSIDE RECORDS SUMMARY | 2025-02-24 14:54 | XMS_ITS ---
Author Organization [facility] Address [address] [place] [address] Care Team Providers Care Project Buyer Name Role Phone Juice Lai MD Primary Care Provider UnavailMaria Teresa Sherman Unavailable [phone] REASON FOR VISIT middle toenail left foot Encounters Encounter Location Date Provider Diagnosis [address] [address] 10/19/2024 Maria Teresa Hernandez Plan Of Treatment No Information Progress Notes * Boogie NELSON FDOB:[birth year] (78 yo M)Acc No.[id number]:10/19/2024 Patient:?Boogie NELSON :1945???Age:78 Y???Sex:Male Address:[address] [place] [address] [place], [address] * true * Date:? Generated for Randolph salgado/Manuel/eTransmitting on:?02/24/2025 02:54 PM EDT
--- OUTSIDE RECORDS SUMMARY | 2025-02-24 14:54 | XMS_ITS | Encounter Summary ---
Author Organization [facility] Address [address] [place] [address] Care Team Providers Care It Help Desk Analyst Name Role Phone Stef Kaufman MD Primary Care Provider [phone] Mario Alberto Joseph MD Unavailable [phone] Shilpa Thompson PA-C Unavailable Unavailab [facility], Pcp Primary Care Provider Unavailabl e Encounter Details Date Type Department Care Team Description 02/07/2021 Incoming Correspondence Medical Records [address] [place] [address] Vascular, [facility] Heart And [address] [place] [address] Social History Tobacco Use Types Packs/Day Years Used Date Smoking Tobacco: Never Smokeless Tobacco: Never Alcohol Use Standard Drinks/Week Comments No 0 (1 standard drink = 0.6 oz pur e alcohol) Sex Assigned at Date Recorded Not on file Job Start Date Occupation Industry Not on file Not on file Not on file COVID-19 Exposure Response Date Recorded In the last month, have you been in contact with someone who was confirmed or suspected to have Coronavirus / COVID-19? No / Unsure 02/04/2021 2:47 PM EDT documented as of this encounter Plan of Treatment Not on file documented as of this encounter Visit Diagnoses Not on filedocumented in this encounter Care Teams It Help Desk Analyst Relationship Specialty Start Date End Date Stef Kaufman MD [address] [place] [address] PCP - General 12/05/09 02/09/23 [facility], Pcp [address] [address] PCP - General Internal Medicine 02/10/23 Mario Alberto Joseph MD [address] [id number] Specialist Cardiovascular Disease 03/28/21 Shilpa Thompson PA-C 300 [facility] 154 [place] [address] Cardiology 03/28/21 documented as of this encounter
--- OUTSIDE RECORDS SUMMARY | 2025-02-24 14:54 | XMS_ITS | Encounter Summary ---
Author Organization [facility] Address [address] [place] [address] Care Team Providers Care Adjunct Psychology Professor Name Role Phone Stef Kaufman MD Primary Care Provider [phone] Mario Alberto Joseph MD Unavailable [phone] Shilpa Thompson PA-C Unavailable Unavailab [facility], Pcp Primary Care Provider Unavailabl e Encounter Details Date Type Department Care Team Description 05/18/2019 Hospital Medical Records [address] [place] [address] Chad Palacio MD [address] [place] [address] Social History Tobacco Use Types Packs/Day Years [...] on filedocumented in this encounter Care Teams Adjunct Psychology Professor Relationship Specialty Start Date End Date Stef Kaufman MD [address] [place] [address] PCP - General 12/05/09 02/09/23 [facility], Pcp [facility] [address] [place] [address] PCP - General Internal Medicine 02/10/23 Mario Alberto Joseph MD [address] [facility] [address] [place], [place] [id number] Specialist Cardiovascular Disease 03/28/21 Shilpa Thompson PA-C [address] [facility] [address] [place] [address] Cardiology 03/28/21 documented as of this encounter
--- OUTSIDE RECORDS SUMMARY | 2025-02-24 14:54 | XMS_ITS | Encounter Summary ---
Author Organization [facility] Address [address] [place] [address] Care Team Providers Care Math And Science Division Chair Name Role Phone Stef Kaufman MD Primary Care Provider Mario Alberto Joseph MD Unavailable [phone] Shilpa Thompson PA-C Unavailable [facility], [facility] Primary Care Provider Unavailabl e Reason for Visit * Reason Onset Date Comments Faxed Order 04/21/2016 Encounter Details Date Type Department Care Team Description 04/21/2016 Telephone Adult Medicine [address] [address] Stef Kaufman MD [address] [place] [address] Faxed Order Social History Tobacco Use Types Packs/Day Years Used Date Smoking Tobacco: Never Smokeless Tobacco: Never Alcohol Use Standard Drinks/Week Comments No 0 (1 standard drink = 0.6 oz pur e alcohol) Sex Assigned at Date Recorded Not on file Job Start Date Occupation Industry Not on file Not on file Not on file documented as of this encounter Miscellaneous Notes * Telephone Encounter - Kirstin Kim - 04/21/2016 4:44 PM EDT [facility] requesting Dr. Kaufman's signature on Discharge Summary documented in this encounter Plan of Treatment Not on file documented as of this encounter Visit Diagnoses Not on filedocumented in this encounter Care Teams Math And Science Division Chair Relationship Specialty Start Date End Date Stef Kaufman MD [address] [place] [address] PCP - General 12/05/09 02/09/23 [facility], Pcp 300 [facility] [address] [place] [address] PCP - General Internal Medicine 02/10/23 Mario Alberto Joseph MD 300 [facility] [address] [place] [address] Specialist Cardiovascular Disease 03/28/21 Shilpa Thompson PA-C 300 [facility] [address] [place] [address] Cardiology 03/28/21 documented as of this encounter
--- OUTSIDE RECORDS SUMMARY | 2025-02-24 14:54 | XMS_ITS | Encounter Summary ---
Author Organization [facility] Address [address] [place] [address] Care Team Providers Care Financial Business Analyst Name Role Phone Stef Kaufman MD Primary Care Provider [phone] Mario Alberto Joseph MD Unavailable [phone] Shilpa Thompson PA-C Un[facility] Primary Care Provider Unavailabl e Reason for Visit * Reason Comments E-prescribe Rx Request Encounter Details Date Type Department Care Team Description 06/14/2019 Refill Adult Urgent Care - [address] [address] Celeste Gibbons MD E-prescribe Rx Request Social History Tobacco Use Types Packs/Day Years [...] encounter Miscellaneous Notes * Telephone Encounter - Nicki Mix - 06/29/2019 11:06 AM EDT a * Telephone Encounter - Celeste Gibbons MD - 06/15/2019 6:42 PM EDT Saw him in urgent care. Rxed triamcinolone 2-3x/daily, 30 g Call pt. If still with significant rash, should follow up with primary care team. If no more symptoms, stop using the triamcinolone. * Telephone Encounter - Elizabeth Ling M.A. - 06/15/2019 2:41 PM EDT Please review rashaun (contact dermatitis * Telephone Encounter - Ladan Liu - 06/14/2019 1:27 PM EDT Patient would like script to be: E-PRESCRIBED/FAXED TO PHARMACY WHEN WAS THE PATIENT'S LAST APPOINTMENT IN ADULT MEDICINE? 04/25/2019 WHEN WAS THE LAST TIME THE PATIENT SAW THEIR PCP? Same as above Does patient have an upcoming appointment? Yes 10/31/2018 (THE MEDICATION REQUESTED IS ON THE MED LIST ABOVE) All of the medications requested were on the CURRENT MEDS list Did you check the Pharmacy information above?: YES Patient wants: 30 -day supply Is this a mail order prescription request ? NO If the refill is from a FAXED refill request what is the RX # listed on the fax? N/A Patients current insurance carrier is: Payor: [employer] FFS / Plan: [employer] MEDICARE ADVANTAGE $10/$20/ Product Type: MEDICARE [id number] documented in this encounter Plan of Treatment Not on file documented as of this encounter Visit Diagnoses Not on filedocumented in this encounter Care Teams Financial Business Analyst Relationship Specialty Start Date End Date Stef Kaufman MD [address] [place] [address] PCP - General 12/05/09 02/09/23 [facility], Pcp [address] [place] [address] [place] [address] PCP - General Internal Medicine 02/10/23 Mario Alberto Joseph MD 300 [facility] [address] [place] [address] Specialist Cardiovascular Disease 03/28/21 Shilpa Thompson PA-C 300 [facility] [address] [place] [address] Cardiology 03/28/21 documented as of this encounter
--- OUTSIDE RECORDS SUMMARY | 2025-02-24 14:54 | XMS_ITS | Encounter Summary ---
Author Organization [facility] Address [address] [place] [address] Care Team Providers Care Reaming Machine Tender Name Role Phone Stef Kaufman MD Primary Care Provider [phone] Ten Kirkpatrick MD Primary Care Provider [phone] Mario Alberto Joseph MD Unavailable [phone] Shilpa Thompson PA-C Unavailable Unavailab [facility], Pcp Primary Care Provider Unavailabl e Encounter Details Date Type Department Care Team Description 05/08/2009 Hospital Medical Records [address] [place] [address] Leia Ronquillo MD Social History Tobacco Use Types Packs/Day Years [...] on filedocumented in this encounter Care Teams Reaming Machine Tender Relationship Specialty Start Date End Date Stef Kaufman MD [address] [place] [address] PCP - General 12/05/09 02/09/23 Ten Kirkpatrick MD [address] [place] [id number] PCP - General 03/25/01 12/04/09 [facility], Pcp [address] [address] PCP - General Internal Medicine 02/10/23 Mario Alberto Joseph MD [address] [address] Specialist Cardiovascular Disease 03/28/21 Shilpa Thompson PA-C [address] [address] Cardiology 03/28/21 documented as of this encounter
--- OUTSIDE RECORDS SUMMARY | 2025-02-24 14:54 | XMS_ITS | Encounter Summary ---
Author Organization [facility] Address [address] [place] [address] Care Team Providers Care Fbi Profiler Name Role Phone Stef Kaufman MD Primary Care Provider [phone] Mario Alberto Joseph MD Unavailable [phone] Shilpa Thompson PA-C Unavailable Unavailab [facility], Pcp Primary Care Provider Unavailabl e Reason for Visit * Reason Onset Date Comments Follow-up Appt Unavailable 10/14/2021 Encounter Details Date Type Department Care Team Description 10/14/2021 Telephone Cardio PVC POC [address] [address] Mario Alberto Joseph MD [address] [id number] Follow-up Appt Unavailable Social History Tobacco Use Types Packs/Day Years [...] have Coronavirus / COVID-19? No / Unsure 09/25/2021 10:40 AM EST documented as of this encounter Miscellaneous Notes * Telephone Encounter - Balbina Erwin - 10/14/2021 3:46 PM EST 10/14/21 PT states no longer with the practice. FYI. Told me he informed us a while ago. Just sendingto make sure we're all set. Thanks documented in this encounter Plan of Treatment Not on file documented as of this encounter Visit Diagnoses Not on filedocumented in this encounter Care Teams Fbi Profiler Relationship Specialty Start Date End Date Stef Kaufman MD [address] [place] [address] PCP - General 12/05/09 02/09/23 [facility], Pcp [facility] [address] [place] [address] PCP - General Internal Medicine 02/10/23 Mario Alberto Joseph MD 300 [facility] [address] [place] [address] Specialist Cardiovascular Disease 03/28/21 Shilpa Thompson PA-C [facility] [address] [place] [address] Cardiology 03/28/21 documented as of this encounter
--- OUTSIDE RECORDS SUMMARY | 2025-02-24 14:54 | XMS_ITS | Encounter Summary ---
Author Organization [facility] Address [address] [place] [address] Care Team Providers Care Radiologic Technologist Mammogram Name Role Phone Stef Kaufman MD Primary Care Provider [phone] Mario Alberto Joseph MD Unavailable [phone] Shilpa Thompson PA-C Un[facility] Primary Care Provider Unavailabl e Reason for Visit * Reason Onset Date Comments TEST RESULTS 07/04/2019 Encounter Details Date Type Department Care Team Description 07/04/2019 Telephone Adult Medicine [address] [address] Stef Kaufman MD [address] [place] [address] TEST RESULTS Social History Tobacco Use Types Packs/Day Years [...] * Telephone Encounter - Kirstin Kim - 07/11/2019 4:00 PM EDT Patient calling back to speak to Dr. Kaufman about results * Telephone Encounter - Jacquelyn Irene - 07/04/2019 1:01 PM EDT Inform patient: ANY URGENT OR ABNORMAL RESULTS WIILL RESULT IN A CALL BACK TO THE PATIENT HARMEET. Patient only wants Stef Kaufman to call patient with test results Type of test: :Blood Work Date test was performed: 06/30/19 Where was the test performed: [facility] Who ordered this test?: Stef Kaufman Is the doctor here today?: YES Can the message wait until the doctor returns?: YES IF PATIENT'S PCP IS NOT IN INSTRUCT PATIENT THAT THEY WILL RECEIVE A CALL BACK WHEN THE PCP IS IN THE OFFICE NEXT. documented in this encounter Plan of Treatment Not on file documented as of this encounter Visit Diagnoses Not on filedocumented in this encounter Care Teams Radiologic Technologist Mammogram Relationship Specialty Start Date End Date Stef Kaufman MD [address] [place] [address] PCP - General 12/05/09 02/09/23 [facility], Pcp [address] [address] PCP - General Internal Medicine 02/10/23 Mario Alberto Joseph MD 300 [facility] [address] [place] [address] Specialist Cardiovascular Disease 03/28/21 Shilpa Thompson PA-C [facility] [address] [place] [address] Cardiology 03/28/21 documented as of this encounter
--- OUTSIDE RECORDS SUMMARY | 2025-02-24 14:54 | XMS_ITS | Encounter Summary ---
Author Organization [facility] Address [address] [place] [address] Care Team Providers Care Roller Gold Leaf Name Role Phone Stef Kaufman MD Primary Care Provider [phone] Mario Alberto Joseph MD Unavailable [phone] Shilpa Thompson PA-C Unavailable Unavailab [facility], Pcp Primary Care Provider Unavailabl e Encounter Details Date Type Department Care Team Description 03/02/2019 Orders Only Medical Records [address] [place] [address] Chad Bustillos MD Social History Tobacco Use Types Packs/Day [...] on file documented as of this encounter Procedures Procedure Name Priority Date/Time Associated Diagnosis Comments OUTSIDE LOOP RECORDER Routine 01/19/2019 documented in this encounter Results * OUTSIDE LOOP RECORDER (01/19/2019) Chad Bustillos MD CARDIOLOGY documented in this encounter Visit Diagnoses Not on filedocumented in this encounter Care Teams Roller Gold Leaf Relationship Specialty Start Date End Date Stef Kaufman MD [address] [place] [address] PCP - General 12/05/09 02/09/23 [facility], Pcp [address] [place] [address] PCP - General Internal Medicine 02/10/23 Mario Alberto Joseph MD 300 [facility] [address] [place] [address] Specialist Cardiovascular Disease 03/28/21 Shilpa Thompson PA-C [address] [address] Cardiology 03/28/21 documented as of this encounter
--- OUTSIDE RECORDS SUMMARY | 2025-02-24 14:54 | XMS_ITS | Encounter Summary ---
Author Organization [facility] Address [address] [place] [address] Care Team Providers Care Health Care Recruiter Name Role Phone Stef Kaufman MD Primary Care Provider [phone] Mario Alberto Joseph MD Unavailable [phone] Shilpa Thompson PA-C Unavailable Unavailab [facility], Pcp Primary Care Provider Unavailabl e Encounter Details Date Type Department Care Team Description 08/27/2021 Hospital Medical Records [address] [place] [address] Abstract, Provider Social History Tobacco Use Types Packs/Day Years [...] have Coronavirus / COVID-19? No / Unsure 08/28/2021 11:06 AM EST documented as of this encounter Plan of Treatment Not on file documented as of this encounter Visit Diagnoses Not on filedocumented in this encounter Care Teams Health Care Recruiter Relationship Specialty Start Date End Date Stef Kaufman MD [address] [place] [address] PCP - General 12/05/09 02/09/23 [facility], Pcp [address] [address] PCP - General Internal Medicine 02/10/23 Mario Alberto Joseph MD [address] [phone] Specialist Cardiovascular Disease 03/28/21 Shilpa Thompson PA-C 300 [facility] [address] [place] [address] Cardiology 03/28/21 documented as of this encounter
--- OUTSIDE RECORDS SUMMARY | 2025-02-24 14:54 | XMS_ITS | Encounter Summary ---
Author Organization [facility] Address [address] [place] [address] Care Team Providers Care Bead Picker Name Role Phone Stef Kaufman MD Primary Care Provider [phone] Mario Alberto Joseph MD Unavailable [phone] Shilpa Thompson PA-C Unavailable Unavailab [facility], Pcp Primary Care Provider Unavailabl e Encounter Details Date Type Department Care Team Description 04/08/2011 Engineering Coordinator Report Medical Records [address] [place] [address] Mallorie Odom MD Social History Tobacco Use Types Packs/Day Years Used Date Smoking Tobacco: Never Alcohol Use Standard Drinks/Week Comments [...] on filedocumented in this encounter Care Teams Bead Picker Relationship Specialty Start Date End Date Stef Kaufman MD [address] [place] [address] PCP - General 12/05/09 02/09/23 [facility], Pcp [address] [facility] [address] [place] [address] PCP - General Internal Medicine 02/10/23 Mario Alberto Joseph MD 300 [facility] [address] [place] [address] Specialist Cardiovascular Disease 03/28/21 Shilpa Thompson PA-C [facility] [address] [place] [address] Cardiology 03/28/21 documented as of this encounter
--- OUTSIDE RECORDS SUMMARY | 2025-02-24 14:54 | XMS_ITS | Encounter Summary ---
Author Organization [facility] Address [address] [place] [address] Care Team Providers Care Stock Preparer Name Role Phone Stef Kaufman MD Primary Care Provider [phone] Mario Alberto Joseph MD Unavailable [phone] Shilpa Thompson PA-C Un[facility] Primary Care Provider Unavailabl e Reason for Visit * Reason Onset Date Comments E-prescribe Rx Request 10/14/2021 incoming Fax [facility] atorvastatin Encounter Details Date Type Department Care Team Description 10/14/2021 Refill Cardio PVC POC [address] [address] Mario Alberto Joseph MD [address] [id number] E-prescribe Rx Request (incoming Fax [facility] atorvastatin ) Social History Tobacco Use Types Packs/Day Years [...] encounter Miscellaneous Notes * Telephone Encounter - Taylor Goodman DNP,INTERNAL REVIEW AND AUDIT COMPLIANCE - 10/14/2021 3:55 PM EST Refilled. But no further refills until patient seen in the office * Telephone Encounter - Megan Lowe C.M.A. - 10/14/2021 3:26 PM EST JE w/ LL 05/2020 Last appt w/ SLL cx per pt's request. Statin order attached for approval Lipids up to date on rec. For scheduling Please r/s pt appt with Dr CALLEJAS/ toshia Thank you documented in this encounter Plan of Treatment Not on file documented as of this encounter Visit Diagnoses Not on filedocumented in this encounter Care Teams Stock Preparer Relationship Specialty Start Date End Date Stef aKufman MD [address] [place] [address] PCP - General 12/05/09 02/09/23 [facility], Pcp [address] [address] PCP - General Internal Medicine 02/10/23 Mario Alberto Joseph MD [address] [address] Specialist Cardiovascular Disease 03/28/21 Shilpa Thompson PA-C [address] [address] Cardiology 03/28/21 documented as of this encounter
--- OUTSIDE RECORDS SUMMARY | 2025-02-24 14:54 | XMS_ITS | Encounter Summary ---
Author Organization [facility] Address [address] [place] [address] Care Team Providers Care Fire Claims Adjuster Name Role Phone Stef Kaufman MD Primary Care Provider [phone] Mario Alberto Joseph MD Unavailable [phone] Shilpa Thompson PA-C Unavailable Unavailab [facility], Pcp Primary Care Provider Unavailabl e Encounter Details Date Type Department Care Team Description 05/29/2019 City Jailer Report Medical Records [address] [place] [address] Lalito Gomez NP Social History Tobacco Use Types Packs/Day Years [...] on filedocumented in this encounter Care Teams Fire Claims Adjuster Relationship Specialty Start Date End Date Stef Kaufman MD [address] [place] [address] PCP - General 12/05/09 02/09/23 [facility], Pcp [address] [address] PCP - General Internal Medicine 02/10/23 Mario Alberto Joseph MD [address] [address] Specialist Cardiovascular Disease 03/28/21 Shilpa Thompson PA-C [address] [address] Cardiology 03/28/21 documented as of this encounter
--- OUTSIDE RECORDS SUMMARY | 2025-02-24 14:54 | XMS_ITS | Encounter Summary ---
Author Organization [facility] Address [address] [place] [address] Care Team Providers Care Pony Edger Name Role Phone Stef Kaufman MD Primary Care Provider [phone] Mario Alberto Joseph MD Unavailable [phone] Shilpa Thompson PA-C Unavailable Unavailab [facility], Pcp Primary Care Provider Unavailabl e Encounter Details Date Type Department Care Team Description 05/27/2021 Incoming Correspondence Medical Records [address] [place] [address] Abstract, Provider Social History Tobacco Use Types [...] on filedocumented in this encounter Care Teams Pony Edger Relationship Specialty Start Date End Date Stef Kaufman MD [address] [place] [address] PCP - General 12/05/09 02/09/23 [facility], Pcp [address] [facility] [address] [place] [address] PCP - General Internal Medicine 02/10/23 Mario Alberto Joseph MD 300 [facility] 154 [place] [address] Specialist Cardiovascular Disease 03/28/21 Shilpa Thompson PA-C 300 [facility] [address] [place] [address] Cardiology 03/28/21 documented as of this encounter
--- OUTSIDE RECORDS SUMMARY | 2025-02-24 14:54 | XMS_ITS | Encounter Summary ---
Author Organization [facility] Address [address] [place] [address] Care Team Providers Care Operations Developer Name Role Phone Stef Kaufman MD Primary Care Provider [phone] Mario Alberto Joseph MD Unavailable [phone] Shilpa Thompson PA-C Unavailable Unavailab [facility], Pcp Primary Care Provider Unavailabl e Encounter Details Date Type Department Care Team Description 07/19/2019 In Store Demonstrator Report Medical Records [address] [place] [address] Walt Ramos MD [address] [address] Social History Tobacco Use Types Packs/Day Years [...] on filedocumented in this encounter Care Teams Operations Developer Relationship Specialty Start Date End Date Stef Kaufman MD [address] [place] [address] PCP - General 12/05/09 02/09/23 [facility], Pcp [address] [address] PCP - General Internal Medicine 02/10/23 Mario Alberto Joseph MD [address] [address] Specialist Cardiovascular Disease 03/28/21 Shilpa Thompson PA-C 300 [facility] [address] [place] [address] Cardiology 03/28/21 documented as of this encounter
--- OUTSIDE RECORDS SUMMARY | 2025-02-24 14:54 | XMS_ITS | Encounter Summary ---
Author Organization [facility] Address [address] [place] [address] Care Team Providers Care Sales Representative Business Courses Name Role Phone Stef Kaufman MD Primary Care Provider [phone] Mario Alberto Joseph MD Unavailable Shilpa Thompson PA-C Un[facility] Primary Care Provider Unavailabl e Reason for Visit * Reason Onset Date Comments medication problems 04/15/2022 Encounter Details Date Type Department Care Team Description 04/15/2022 Telephone Adult Medicine [address] [phone] Stef Kaufman MD [address] [place] [phone] medication problems Social History Tobacco Use Types Packs/Day Years Used Date Smoking Tobacco: Never Smokeless Tobacco: Never Alcohol Use Standard Drinks/Week Comments No 0 (1 standard drink = 0.6 oz pur e alcohol) Sex Assigned at Date Recorded Not on file Job Start Date Occupation Industry Not on file Not on file Not on file COVID-19 Exposure Response Date Recorded In the last 10 days, have dexter albarran been in contact with someone who was confirmed or suspected to have Coronavirus/COVID-19? No / Unsure 04/14/2022 10:22 AM EDT documented as of this encounter Miscellaneous Notes * Telephone Encounter - Oscar Antoine - 04/15/2022 2:48 PM EDT Who is calling? A pharmacist: Pharmacy: [facility] Pharmacist Name: [facility] Name of the medication hydrocortisone 0.5 % ointment What is the specific problem or interaction? Pharmacist calling states that the 0.5% is unavailable, requesting that 1.0% be sent over instead If the patient is having a problem with taking the med - how long has the problem been going on? N/A documented in this encounter Plan of Treatment Not on file documented as of this encounter Visit Diagnoses Not on filedocumented in this encounter Care Teams Sales Representative Business Courses Relationship Specialty Start Date End Date Stef Kaufman MD [address] [place] [address] PCP - General 12/05/09 02/09/23 [facility] Pcp [address] [address] PCP - General Internal Medicine 02/10/23 Mario Alberto Joseph MD [address] [address] Specialist Cardiovascular Disease 03/28/21 Shilpa Thompson PA-C [address] [address] Cardiology 03/28/21 documented as of this encounter
--- OUTSIDE RECORDS SUMMARY | 2025-02-24 14:54 | XMS_ITS | Encounter Summary ---
Author Organization [facility] Address [address] [place] [address] Care Team Providers Care Rag Grader Name Role Phone Stef Kaufman MD Primary Care Provider [phone] Mario Alberto Joseph MD Unavailable [phone] Shilpa Thompson PA-C Un[facility] Primary Care Provider Unavailabl e Reason for Visit * Reason Onset Date Comments TEST RESULTS 09/19/2021 Encounter Details Date Type Department Care Team Description 09/19/2021 Telephone Adult [address] [address] Sung Parra DO TEST RESULTS Social History Tobacco Use Types [...] have Coronavirus / COVID-19? No / Unsure 09/18/2021 10:33 AM EST documented as of this encounter Miscellaneous Notes * Telephone Encounter - Luna Echevarria M.A. - 09/19/2021 1:32 PM EST Message left for patient to return my call. Ext [phone] Ray Hyman, I just called and left you a general message. ??I have asked the medical staff to give you a call as well to go over your x-rays with you. ??Briefly, there was some thinning of the bones noted, and some soft tissue swelling. ??However, there was no evidence of any visible fractures or di slocation. ??I hope you are feeling well and please keep us apprised of how you are doing. ??Pleasegive ??... Written by Sung Parra, DO on 09/19/2021 ??1:24 PM EST View Full Comments documented in this encounter Plan of Treatment Not on file documented as of this encounter Visit Diagnoses Not on filedocumented in this encounter Care Teams Rag Grader Relationship Specialty Start Date End Date Stef Kaufman MD [address] [place] [address] PCP - General 12/05/09 02/09/23 [facility], Pcp [address] [address] PCP - General Internal Medicine 02/10/23 Mario Alberto Joseph MD 300 [facility] [address] [place] [address] Specialist Cardiovascular Disease 03/28/21 Shilpa Thompson PA-C [address] [address] Cardiology 03/28/21 documented as of this encounter
--- OUTSIDE RECORDS SUMMARY | 2025-02-24 14:54 | XMS_ITS ---
Author Organization [facility] Address [address] [place] [address] Care Team Providers Care Museum Assistant Name Role Phone Juice Lai MD Primary Care Provider UnavailMaria Teresa Sherman [phone] REASON FOR VISIT Seen Sooner Encounters Encounter Location Date Provider Diagnosis [facility] [address] [place] [address] 09/21/2024 Maria Teresa Hernandez Plan Of Treatment No Information Progress Notes * Boogie NELSON FDOB:[birth year] (79 yo M)Acc No.[id number]:09/21/2024 Progress Notes Patient:?LESLIE Boogie Brynn Provider:?Maria Teresa Hernandez DPM :1945???Age:78 Y???Sex:Male Delmar e:09/21/2024 Address:[address] [place] [address] Alan keen [id number] Pcp:Juice Lai MD Subjective: * Chief Complaints: [...] Hernandez DPM Date:?2023 Generated for Hernani ng/Fafortinog/eTransmitting on:?02/24/2025 02:54 PM EDT
--- OUTSIDE RECORDS SUMMARY | 2025-02-24 14:55 | XMS_ITS | Encounter Summary ---
Author Organization [facility] Address [address] [place] [address] Care Team Providers Care Loan Closer Name Role Phone Stef Kaufman MD Primary Care Provider [phone] Mario Alberto Joseph MD Unavailable [phone] Shilpa Thompson PA-C Unavailable Unavailab [facility], Pcp Primary Care Provider Unavailabl e Encounter Details Date Type Department Care Team Description 09/05/2015 Hospital Medical Records [address] [place] [address] Mechelle Winter MD Social History Tobacco Use Types Packs/Day [...] on filedocumented in this encounter Care Teams Loan Closer Relationship Specialty Start Date End Date Stef Kaufman MD [address] [place] [address] PCP - General 12/05/09 02/09/23 [facility], Pcp 300 [place] [facility] [address] [place] [address] PCP - General Internal Medicine 02/10/23 Mario Alberto Joseph MD 300 [facility] [address] [place] [address] Specialist Cardiovascular Disease 03/28/21 Shilpa Thompson PA-C 300 [place] [facility] [address] [place] [address] Cardiology 03/28/21 documented as of this encounter
--- OUTSIDE RECORDS SUMMARY | 2025-02-24 14:55 | XMS_ITS | Encounter Summary ---
Author Organization [facility] Address [address] [place] [address] Care Team Providers Care Emergency Service Worker Name Role Phone Stef Kaufman MD Primary Care Provider [phone] Mario Alberto Joseph MD Unavailable [phone] Shilpa Thompson PA-C Un[facility], [facility] Primary Care Provider Unavailabl e Reason for Visit * Reason Onset Date Comments Orders Call 11/19/2014 Encounter Details Date Type Department Care Team Description 11/19/2014 Telephone Adult Medicine [address] [address] Stef Kaufman MD [address] [place] [address] Orders Call Social History Tobacco Use Types Packs/Day Years [...] encounter Miscellaneous Notes * Telephone Encounter - Thelma Peraza - 11/19/2014 4:53 PM EST PT Progress notes need Dr Kaufman's signature Fax to [phone] documented in this encounter Plan of Treatment Not on file documented as of this encounter Visit Diagnoses Not on filedocumented in this encounter Care Teams Emergency Service Worker Relationship Specialty Start Date End Date Stef Kaufman MD [address] [place] [address] PCP - General 12/05/09 02/09/23 [facility], Pcp 300 [facility] [address] [place] [address] PCP - General Internal Medicine 02/10/23 Mario Alberto Joseph MD 300 [facility] [address] [place] [address] Specialist Cardiovascular Disease 03/28/21 Shilpa Thompson PA-C 300 [facility] [address] [place] [address] Cardiology 03/28/21 documented as of this encounter
--- OUTSIDE RECORDS SUMMARY | 2025-02-24 14:55 | XMS_ITS | Encounter Summary ---
Author Organization [facility] Address [address] [place] [address] Care Team Providers Care Linotype Machinist Apprentice Name Role Phone Stef Kaufman MD Primary Care Provider [phone] Mario Alberto Joseph MD Unavailable [phone] Shilpa Thompson PA-C Unavailable Unavailab [facility], Pcp Primary Care Provider Unavailabl e Encounter Details Date Type Department Care Team Description 03/06/2022 Hospital Medical Records [address] [place] [address] Social History Tobacco Use Types Packs/Day Years [...] Recorded In the last 10 days, have yo u been in contact with someone who was confirmed or suspected to have Coronavirus/COVID-19? No / Unsure 02/26/2022 9:56 AM EDT documented as of this encounter Plan of Treatment Not on file documented as of this encounter Visit Diagnoses Not on filedocumented in this encounter Care Teams Linotype Machinist Apprentice Relationship Specialty Start Date End Date Stef Kaufman MD [address] [place] [address] PCP - General 12/05/09 02/09/23 [facility], Pcp [address] [address] PCP - General Internal Medicine 02/10/23 Mario Alberto Joseph MD [address] [id number] Specialist Cardiovascular Disease 03/28/21 Shilpa Thompson PA-C 300 [facility] [address] [place] [address] Cardiology 03/28/21 documented as of this encounter
--- OUTSIDE RECORDS SUMMARY | 2025-02-24 14:55 | XMS_ITS | Encounter Summary ---
Author Organization [facility], Address [address] [place] [address] Phone Care Team Providers Care Csm Consultant Name Role Phone Stef Kaufman MD Primary Care Provider [phone] Encounter Details Date Type Department Care Team (Late st Contact Info) Description 06/02/2022 Documentation Only [facility], [address] [place] [phone] Lamont Martin MD [address] [place] [phone] Social History Tobacco Use Types Packs/Day Years [...] on filedocumented in this encounter Care Teams Csm Consultant Relationship Specialty Start Date End Date Stef Kaufman MD PCP - General Internal Medicine 03/20/21 documented as of this encounter
--- OUTSIDE RECORDS SUMMARY | 2025-02-24 14:55 | XMS_ITS | Encounter Summary ---
Author Organization [facility] Address [address] [place] [address] Care Team Providers Care Insurance Producer Name Role Phone Stef Kaufman MD Primary Care Provider [phone] Mario Alberto Joseph MD Unavailable [phone] Shilpa Thompson PA-C Unavailable Unavailab [facility], Pcp Primary Care Provider Unavailabl e Reason for Referral * Non DIANE (Routine) - Authorized/Booked Specialty Diagnoses / Procedures Referred By Michelle putnam Referred To Contact Physical Therapy Procedures REFERRAL TO PHYSICAL THERAPY Stef Kaufman MD [address] [place], [place] [id number] External Phys Thrpy Referral ID Status Reason Start Date Expiration Date V isits Requested Visits Authorized SEE NOTE Authorized/B ooked 08/06/2016 11/06/2016 1 1 Reason for Visit * Reason Onset Date Comments Brick Unloader Tender Feedback 08/05/2016 Attain Encounter Details Date Type Department Care Team Description 08/05/2016 Telephone Adult Medicine [address] [address] Stef Kaufman MD [address] [place] [address] Brick Unloader Tender Feedback (Attain) Social History Tobacco Use Types Packs/Day Years [...] encounter Miscellaneous Notes * Telephone Encounter - Sona Morris 08/19/2016 2:15 PM EST + * Telephone Encounter - Kay Goodrich - 08/05/2016 4:50 PM EDT Please review this patients new referral request. The referral has been pended. Please complete thefollowing: If approved> sign order If denied>please give instructions and route to your practice nursing pool. Practice nurse should inform referrals and the patient if denied. * Telephone Encounter - Irene Levine - 08/05/2016 4:33 PM EDT Patient will need additional orders for Attain Physical Therapy to include Rt & left hip pain/ rt & left leg pain. Orders can be faxed to [phone] documented in this encounter Plan of Treatment Not on file documented as of this encounter Visit Diagnoses Not on filedocumented in this encounter Care Teams Insurance Producer Relationship Specialty Start Date End Date Stef Kaufman MD [address] [place] [address] PCP - General 12/05/09 02/09/23 [facility], Pcp [address] [address] PCP - General Internal Medicine 02/10/23 Mario Alberto Joseph MD [address] [address] Specialist Cardiovascular Disease 03/28/21 Shilpa Thompson PA-C [address] [address] Cardiology 03/28/21 documented as of this encounter
--- OUTSIDE RECORDS SUMMARY | 2025-02-24 14:55 | XMS_ITS | Encounter Summary ---
Author Organization [facility] Address [address] [place] [address] Care Team Providers Care Advanced Solutions Architect Name Role Phone Stef Kaufman MD Primary Care Provider [phone] Mario Alberto Joseph MD Unavailable [phone] Shilpa Thompson PA-C Un[facility] Primary Care Provider Unavailabl e Reason for Visit * Reason Onset Date Comments Stress Test 03/25/2017 Encounter Details Date Type Department Care Team Description 03/25/2017 Telephone Cardiology - [address] [address] Chad Bustillos MD Stress Test Social History Tobacco Use Types Packs/Day Years [...] encounter Miscellaneous Notes * Telephone Encounter - Daniella Rios - 03/25/2017 4:20 PM EDT Patient is asking for a call back to discuss the results of his most recent blood work completed on03/21/17, more specifically his BMP results. Please review documented in this encounter Plan of Treatment Not on file documented as of this encounter Visit Diagnoses Not on filedocumented in this encounter Care Teams Advanced Solutions Architect Relationship Specialty Start Date End Date Stef Kaufman MD [address] [place] [address] PCP - General 12/05/09 02/09/23 [facility] Pcp 300 [facility] [address] [place] [address] PCP - General Internal Medicine 02/10/23 Mario Alberto Joseph MD 300 [facility] [address] [place] [address] Specialist Cardiovascular Disease 03/28/21 Shilpa Thompson PA-C 300 [facility] [address] [place] [address] Cardiology 03/28/21 documented as of this encounter
--- OUTSIDE RECORDS SUMMARY | 2025-02-24 14:55 | XMS_ITS | Encounter Summary ---
Author Organization [facility] Address [address] [place] [address] Care Team Providers Care Security Control Room Officer Name Role Phone Stef Kaufman MD Primary Care Provider [phone] Mario Alberto Joseph MD Unavailable [phone] Shilpa Thompson PA-C Un[facility] Primary Care Provider Unavailabl e Reason for Visit * Reason Onset Date Comments TEST RESULTS 11/29/2012 Encounter Details Date Type Department Care Team Description 11/29/2012 Telephone Adult Medicine [address] [address] Stef Kaufman MD [address] [place] [address] TEST RESULTS Social History Tobacco Use Types [...] encounter Miscellaneous Notes * Telephone Encounter - Marcleina Hernandez L.P.N. - 11/29/2012 4:27 PM EST Will await fax * Telephone Encounter - Kamryn Landa - 11/29/2012 3:58 PM EST Inform patient: ANY URGENT OR ABNORMAL RESULTS WIILL RESULT IN A CALL BACK TO THE PATIENT HARMEET. Dr. Charito Kahn will be sending results to Stef Kaufman MD. Patient is requesting a call back in themorning from covering provider. Patient is aware Dr Kaufman is out. Type of test: :nuclear stress test Date test was performed: 10/29/12 Where was the test performed: [facility] Who ordered this test?: JOSE ARMANDO Kline Is the doctor here today?: NO Can the message wait until the doctor returns?: NO IF PATIENT'S PCP IS NOT IN INSTRUCT PATIENT THAT THEY WILL RECEIVE A CALL BACK WHEN THE PCP IS IN THE OFFICE NEXT. documented in this encounter Plan of Treatment Not on file documented as of this encounter Visit Diagnoses Not on filedocumented in this encounter Care Teams Security Control Room Officer Relationship Specialty Start Date End Date Stef Kaufman MD [address] [place] [address] PCP - General 12/05/09 02/09/23 [facility], Pcp [address] [address] PCP - General Internal Medicine 02/10/23 Mario Alberto Joseph MD [address] [address] Specialist Cardiovascular Disease 03/28/21 Shilpa Thompson PA-C [address] [address] Cardiology 03/28/21 documented as of this encounter
--- OUTSIDE RECORDS SUMMARY | 2025-02-24 14:55 | XMS_ITS | Encounter Summary ---
Author Organization [facility], Address [address] [place] [address] Phone Care Team Providers Care Bench Shear Operator Name Role Phone Stef Kaufman MD Primary Care Provider [phone] Encounter Details Date Type Department Care Team (Late st Contact Info) Description 06/02/2022 Documentation Only [facility], [address] [place] [phone] Lamont Martin MD [address] [place] [address] Social History Tobacco Use Types Packs/Day Years [...] on filedocumented in this encounter Care Teams Bench Shear Operator Relationship Specialty Start Date End Date Stef Kaufman MD PCP - General Internal Medicine 03/20/21 documented as of this encounter
--- OUTSIDE RECORDS SUMMARY | 2025-02-24 14:55 | XMS_ITS | Encounter Summary ---
Author Organization [facility] Address [address] [place] [address] Care Team Providers Care Neon Sign Mechanic Name Role Phone Stef Kaufman MD Primary Care Provider [phone] Mario Alberto Joseph MD Unavailable [phone] Shilpa Thompson PA-C Un[facility] Primary Care Provider Unavailabl e Reason for Visit * Reason Onset Date Comments Faxed Order 09/02/2015 Encounter Details Date Type Department Care Team Description 09/02/2015 Telephone Adult Medicine [address] [id number] Stef Kaufman MD [address] [place] [address] Faxed Order Social History Tobacco Use [...] encounter Miscellaneous Notes * Telephone Encounter - Melanie Brody - 09/02/2015 11:58 AM EST Verbal order for dr kaufman to sign documented in this encounter Plan of Treatment Not on file documented as of this encounter Visit Diagnoses Not on filedocumented in this encounter Care Teams Neon Sign Mechanic Relationship Specialty Start Date End Date Stef Kaufman MD [address] [place] [address] PCP - General 12/05/09 02/09/23 Community, Pcp 300 [facility] [address] [place] [address] PCP - General Internal Medicine 02/10/23 Mario Alberto Joseph MD 300 [facility] [address] [place] [address] Specialist Cardiovascular Disease 03/28/21 Shilpa Thompson PA-C 300 [facility] [address] [place] [address] Cardiology 03/28/21 documented as of this encounter
--- OUTSIDE RECORDS SUMMARY | 2025-02-24 14:55 | XMS_ITS | Encounter Summary ---
Author Organization [facility], Address [address] [place] [address] Phone Care Team Providers Care Wirer Helper Name Role Phone Stef Kaufman MD Primary Care Provider [phone] Encounter Details Date Type Department Care Team (Late st Contact Info) Description 2021 Documentation Only [facility], [address] [place] [address] Lamont Martin MD [address] [place] [place] [address] Social History Tobacco Use Types Packs/Day Years [...] on filedocumented in this encounter Care Teams Wirer Helper Relationship Specialty Start Date End Date Stef Kaufman MD PCP - General Internal Medicine 03/20/21 documented as of this encounter
--- OUTSIDE RECORDS SUMMARY | 2025-02-24 14:55 | XMS_ITS ---
Author Organization [facility] Address [address] [facility] [place] [address] Care Team Providers Care Campaign Manager Name Role Phone Juice Lai MD Primary Care Provider Unavailabl e David Maria Teresa Unavailable [phone] Allergies Allergen (clinical drug ingredient) Drug/Non Drug [...] Ordered Date Performed Result Body Sit e 05977-VLJRFCE NAIL, 6 OR MORE 10/19/2024 N/A 44439-Zgtgklxr Plate 10/19/2024 N/A Encounters Encounter Location Date Provider Diagnosis [facility] [address] [place] [address] 10/19/2024 Maria Teresa Black Onychomycosis B35.1 ; Ingrown nail L60.0 ; Pain in right toe(s) M79.674 ; Pain in left toe(s) M79.675 and Atherosclerosis of [place] artery of both lower extremities, with unspecified presence of clinical manifestation I70.203 Assessments Encounter Date Diagnosis (ICD Code) Assessment Notes Treatment Notes Treatment Clinical Notes Section Notes 10/19/2024 Onychomycosis (ICD-10 - B35.1) 10/19/2024 Ingrown nail (ICD-10 - L60.0) 10/19/2024 Pain in right toe(s) (ICD-10 - M79.674) 10/19/2024 Pain in left toe(s) (ICD-10 - M79.675) 10/19/2024 Atherosclerosis of [place] artery of both lower extremities, with unspecified presence of clinical manifestation (ICD-10 - I70.203) Q7(A), Q8(2B), Q9(1B,2C) Plan Of Treatment Pending Test Test Name Order Date [id number]-JSNPJVB NAIL, 6 OR MORE 10/19/2024 69175-Fvfzjznq Plate 10/19/2024 Next Appt Details Follow Up: [...] Motrin was recommended for pain or discomfort (12179) Anesthesia , was accomplished w ith ETHYL [...] use of a nail nipper and/or dremel-type surface grinder tender, to a more viable healthy nail plate [...] to maintain effectiveness in symptomatic relief - 15876 Progress Notes * Boogie NELSON FDOB:[birth year] (78 yo M)Acc No.[id number]:10/19/2024 Progress Note Patient:?LESLIE Boogie F Provider:?Maria Teresa Hernandez DPM :1945???Age:78 Y???Sex:Male Delmar e:10/19/2024 Address:[address] [place] [address] Had RUCHI [id number] Pcp:Juice Lai MD Subjective: * Chief Complaints: [...] M79.674???4.?Pain in left toe(s) - M79.675???5.?Atherosclerosis of [place] artery of both lower extremities, with unspecified presence of clinical manifestation - I70.203???Notes :Q7(A), Q8(2B), Q9(1B,2C)??? Plan: * Treatment: 2.?Onychomycosis?Procedure: 55449-TUDKYMO NAIL, 6 OR MORE * Procedures:?Debride Nail [...] use of a nail nipper and/or dremel-type surface grinder tender, to a more viable healthy nail plate [...] to maintain effectiveness in symptomatic relief - 10318.?Nail Avulsion:?Location?, Bilateral nail border, T2.?Anesthesia?, was accomplished [...] Motrin was recommended for pain or discomfort (28091).? * Procedure Codes:?29292 DEBRI DE NAIL, 6 OR MORE, Modifiers: XS 74737 Avulsion Plate, Modifiers: T2 * Follow Up:?2 Weeks,prn * Images: * Sign off status: Completed true * Provider:?Maria Teresa Hernandez DPM Date:?2024 Generated for Randolph salgado/Manuel/Kiel on:?02/24/2025 02:54 PM EDT History and Physical Notes * [...]
--- OUTSIDE RECORDS SUMMARY | 2025-02-24 14:55 | XMS_ITS | Encounter Summary ---
Author Organization [facility], Address [address] [place] [address] Phone Care Team Providers Care Reversal Print Inspector Name Role Phone Stef Kaufman MD Primary Care Provider [phone] Encounter Details Date Type Department Care Team (Late st Contact Info) Description 07/16/2022 Documentation Only [facility], [address] [place] [address] Lamont Martin MD [address] [place] [address] Social History Tobacco Use Types Packs/Day Years [...] on filedocumented in this encounter Care Teams Reversal Print Inspector Relationship Specialty Start Date End Date Stef Kaufman MD PCP - General Internal Medicine 03/20/21 documented as of this encounter
--- OUTSIDE RECORDS SUMMARY | 2025-02-24 14:55 | XMS_ITS | Encounter Summary ---
Author Organization [facility] Address [address] [place] [address] Care Team Providers Care French Translator Name Role Phone Stef Kaufman MD Primary Care Provider [phone] Mario Alberto Joseph MD Unavailable [phone] Shilpa Thompson PA-C Unavailable Unavailab [facility], Pcp Primary Care Provider Unavailabl e Encounter Details Date Type Department Care Team Description 09/05/2015 Hospital Medical Records [address] [place] [address] Matilda Woo MD Social History Tobacco Use Types Packs/Day [...] on filedocumented in this encounter Care Teams French Translator Relationship Specialty Start Date End Date Stef Kaufman MD [address] [place] [address] PCP - General 12/05/09 02/09/23 [facility], Pcp [facility] [address] [place] [address] PCP - General Internal Medicine 02/10/23 Mario Alberto Joseph MD 300 [facility] [address] [place] [address] Specialist Cardiovascular Disease 03/28/21 Shilpa Thompson PA-C [facility] [address] [place] [address] Cardiology 03/28/21 documented as of this encounter
--- OUTSIDE RECORDS SUMMARY | 2025-02-24 14:55 | XMS_ITS | Clinical Summary ---
Author Organization [facility], Address [address] [place] [address] Phone Care Team Providers Care Cryptographic Center Specialist Name Role Phone Stef Kaufman MD Primary Care Provider [phone] Allergies Active Allergy Reactions Criticality Noted Date [...] patient's age to complete this topic [place] [address] Care Teams Cryptographic Center Specialist Relationship Specialty Start Date End Date Stef Kaufman MD PCP - General Internal Medicine 03/20/21
--- OUTSIDE RECORDS SUMMARY | 2025-02-24 14:55 | XMS_ITS | Encounter Summary ---
Author Organization [facility] Address [address] [place] [address] Care Team Providers Care Oil Heater Installer Name Role Phone Stef Kaufman MD Primary Care Provider [phone] Mario Alberto Joseph MD Unavailable [phone] Shilpa Thompson PA-C Unavailable Unavailab [facility], Pcp Primary Care Provider Unavailabl e Encounter Details Date Type Department Care Team Description 08/22/2020 Incoming Correspondence Medical Records [address] [place] [address] Vascular, [facility] Heart And [address] [place] [address] Social History Tobacco Use Types Packs/Day Years [...] have Coronavirus / COVID-19? No / Unsure 07/25/2020 8:50 AM EDT documented as of this encounter Plan of Treatment Not on file documented as of this encounter Visit Diagnoses Not on filedocumented in this encounter Care Teams Oil Heater Installer Relationship Specialty Start Date End Date Stef Kaufman MD [address] [place] [address] PCP - General 12/05/09 02/09/23 [facility], Pcp 300 [facility] [address] [place] [address] PCP - General Internal Medicine 02/10/23 Mario Alberto Joseph MD 300 [facility] [address] [place], [place] [phone] Specialist Cardiovascular Disease 03/28/21 Shilpa Thompson PA-C 300 [facility] [address] [place] [address] Cardiology 03/28/21 documented as of this encounter
--- OUTSIDE RECORDS SUMMARY | 2025-02-24 14:55 | XMS_ITS | Clinical Summary ---
Author Organization [facility] Address [address] [place] [address] Care Team Providers Care Manager Product Management Name Role Phone Mario Alberto Joseph MD Unavailable [phone] Shilpa Thompson PA-C Unavailable Unavailab [facility], Pcp Primary Care Provider Unavailabl e Allergies Active Allergy Reactions Severity Noted Date Comments Iv Contrast Dye 07/19/2020 Iodine 09/17/2005 Medications Medication Sig Dispensed Refills Start Date End Date Status MULTI VITAMIN MENS OR 1 tab daily 0 Active furosemide (LASIX) 20 MG tablet Take 20 mg by mouth daily. 0 Active Apixaban (ELIQUIS) 5 MG Tab Take 5 mg by mouth 2 times daily. 180 Tab 1 05/29/2020 Active ketoconazole (NIZORAL) 2 % cream Apply sparingly 1 - 2 times a day to affected areas as needed 30 g 1 09/04/2020 Active tacrolimus (PROTOPIC) 0.1 % ointment Apply sparingly twice a day to eczema if itchy 30 g 1 09/20/2020 Active mometasone (ELOCON) 0.1 % ointment Apply twice a day to affected areas on stomach as needed 30 g 1 01/13/2021 Active clindamycin (CLEOCIN) 150 MG capsule Take 1 capsule by mouth as needed. 0 06/25/2021 Active silver sulfADIAZINE (SILVADENE) 1 % cream Apply to affected area twice daily. 50 g 1 07/09/2021 Active atorvastatin (LIPITOR) 10 MG tablet Take 1 tablet by mouth daily. 90 tablet 0 10/14/2021 Active Elastic Bandages & Supports (Medical Compression Stockings) Misc See Instructions, # 2 each, Maintenance, surgical, knee length 20-30 mm Hg, 06/13/20 13:57:00 EDT, Supply 0 06/13/2020 Active Multiple Vitamins-Minerals (ICAPS AREDS FORMULA OR) Take 1 capsule by mouth. 0 05/14/2020 Active mupirocin (BACTROBAN) 2 % ointment Apply sparingly twice a day after prescription topical corticosteroid 22 g 3 12/09/2021 Active hydrocortisone 0.5 % ointment Apply to are bid 30 g 0 04/14/2022 Active hydrocortisone 1 % ointment Apply to area bid 30 g 0 04/15/2022 Active ammonium lactate (LAC-HYDRIN) 12 % lotionIndications: Postinflammatory scar of skin Apply 2 g topically every evening for 360 days. 100 mL 1 07/31/2022 Active metoprolol (TOPROL-XL) 200 MG 24 hr tablet Take 1 Tablet by mouth daily. 0 Active hydrocortisone 0.5 % ointment Apply 1 g topically 2 times daily for 360 days. 30 g 0 09/08/2022 Active acyclovir (ZOVIRAX) 5 % ointment Every 3 hours while awake. 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 07/19/2020 Paroxysmal atrial fibrillation 0 Primary osteoarthritis of both knees 12/2019 Hypertension 07/26/2017 Hyperlipidemia 09/30/2015 S/P AVR (aortic valve replacement) 08/23 Heart failure with preserved ejection fr action 06/06/2008 Macular degeneration (senile) of retina, unspecified 09/17/2005 Overview: Receives occasional injections Fibromyalgia 09/17/2005 Osteoporosis CAD (coronary artery disease) Overview: 2014 CABG x 2 Dysphagia Resolved Problems Problem Noted Date Resolved Date Cellulitis 07/09/2021 07/31/2022 Aortic valve disorders 12/05/2012 0 Overview: Aortic stenosis per note of Herber Shukla on 11/30/2012. Mitral valve disorders 09/17/2005 0 Overview: IMO update Immunizations Name Administration Dates Next Due COVID-19 (Pfizer) 10/13/2021,04/15/2021,03/25/20 21 Influenza (> 6 Months) 07/17/2012,2010,07/21/2010,06/29,07/19/2008,07/08/2007,07/20/2006 ,07/29/2005 Influenza vaccine high dose age 65 and over 06/30/2019,07/28/2016 Pneumoccoccal(Adult) Polysac charide PPSV23 05/09/2009 Pneumococcal Conjugate PCV-13 06/01/2018 TD (STATE SUPPLIED FOR ADULT S AND CHILDREN) 07/01/2020,11/24/2010 Family History Medical History Relation Name Comments Arthritis Father [place], Alzheimers Arthritis Mother CABG, PVD, diab etes Relation Name Status Comments Father Mother Social History Tobacco Use Types Packs/Day Years Used Date Smoking Tobacco: Never Smokeless Tobacco: Never Tobacco Cessation:Counseling Given: Not Answered Alcohol Use Standard Drinks/Week Comments No 0 (1 standard drink = 0.6 oz pur e alcohol) Sex Assigned at Date Recorded Not on file Job Start Date Occupation Industry Not on file Not on file Not on file Last Filed Vital Signs Vital Sign Reading Time Taken Comments Blood Pressure 101/62 09/08/2022 9:36 AM EST Pulse 66 09/08/2022 9:36 AM EST Temperature 36.3 ??C (97.3 ??F) 09/08/2022 9:36 AM ES T Respiratory Rate 12 09/08/2022 9:36 AM EST Oxygen Saturation 98% 02/10/2022 10:01 AM EDT Inhaled Oxygen Concentration - - Weight 71.7 kg (158 lb) 09/08/2022 9:36 AM EST Height 182.9 cm (6') 09/08/2022 9:36 AM EST Body Mass Index 21.43 09/08/2022 9:36 AM EST Plan of Treatment Health Maintenance Due Date Last Done Comments COLON CANCER SCREEN WITH STO OL CARD 07/12/2013 07/12/2012, 07/03/2008, 04/25/2002, Additional history exists DTAP/TDAP/TD (1 - Tdap) 07/02/2020 07/01/20 20 (Completed), 07/01/2020, 11/24/2010 DIABETES/HEART DISEASE: URIEL AL CHOLESTEROL (LDL) 07/01/2023 07/01/2022, 08/28/2021, 03/01/2021, Additional history exists Covid-19 Vaccine (2022-11 4 season) 2024 10/13/2021, 04/15/2021, 03/25/2021 INFLUENZA (Season Ended) 2025 019, 08/02/2018, 07/26/2017, Additional history exists PNEUMOCOCCAL VACCINE Completed 06/01/2018, 05/09/2009 (Completed), 05/09/2009 SHINGLES VACCINE Completed 10/12/2020, 05/07/2020 Care Teams Manager Product Management Relationship Specialty Start Date End Date Community, Pcp [address] [facility] [address] [place] [address] PCP - General Internal Medicine 02/10/23 Mario Alberto Joseph MD [address] [facility] [address] [place] [address] Specialist Cardiovascular Disease 03/28/21 Shilpa Thompson PA-C 300 [facility] [address] [place] [address] Cardiology 03/28/21
--- OUTSIDE RECORDS SUMMARY | 2025-02-24 14:55 | XMS_ITS | Encounter Summary ---
Author Organization [facility], Address [address] [place] [address] Phone Care Team Providers Care Sock And Stocking Ironer Name Role Phone Stef Kaufman MD Primary Care Provider [phone] Encounter Details Date Type Department Care Team (Late st Contact Info) Description 06/02/2022 Documentation Only [facility], [address] [place] [address] Lamont Martin MD [address] [place] [address] Social History Tobacco Use Types Packs/Day Years [...] on filedocumented in this encounter Care Teams Sock And Stocking Ironer Relationship Specialty Start Date End Date Stef Kaufman MD PCP - General Internal Medicine 03/20/21 documented as of this encounter
--- OUTSIDE RECORDS SUMMARY | 2025-02-24 14:55 | XMS_ITS | Encounter Summary ---
Author Organization [facility] Address [address] [place] [address] Care Team Providers Care Flexographic Printing Press Operator Name Role Phone Stef Kaufman MD Primary Care Provider [phone] Mario Alberto Joseph MD Unavailable Shilpa Thompson PA-C Unavailable Unavailab [facility], Pcp Primary Care Provider Unavailabl e Encounter Details Date Type Department Care Team Description 08/27/2015 Dental Instrument Maker Report Medical Records [address] [place] [address] Sonia Freed Social History Tobacco Use Types Packs/Day Years [...] on filedocumented in this encounter Care Teams Flexographic Printing Press Operator Relationship Specialty Start Date End Date Stef Kaufman MD [address] [place] [address] PCP - General 12/05/09 02/09/23 [facility], Pcp [address] [facility] [address] [place] [address] PCP - General Internal Medicine 02/10/23 Mario Alberto Joseph MD [facility] [address] [place] [address] Specialist Cardiovascular Disease 03/28/21 Shilpa Thompson PA-C [facility] [address] [place] [address] Cardiology 03/28/21 documented as of this encounter
--- OUTSIDE RECORDS SUMMARY | 2025-02-24 14:55 | XMS_ITS | Encounter Summary ---
Author Organization [facility] Address [address] [place] [address] Care Team Providers Care Photographic Processor Name Role Phone Stef Kaufman MD Primary Care Provider [phone] Mario Alberto Joseph MD Unavailable [phone] Shilpa Thompson PA-C Unavailable Unavailab [facility], Pcp Primary Care Provider Unavailabl e Encounter Details Date Type Department Care Team Description 10/18/2014 Fitness Attendant Report Medical Records [address] [place] [address] Social History Tobacco Use Types Packs/Day Years [...] on filedocumented in this encounter Care Teams Photographic Processor Relationship Specialty Start Date End Date Stef Kaufman MD [address] [place] [address] PCP - General 12/05/09 02/09/23 [facility], Pcp [facility] [address] [place] [address] PCP - General Internal Medicine 02/10/23 Mario Alberto Joseph MD 300 [facility] [address] [place] [address] Specialist Cardiovascular Disease 03/28/21 Shilpa Thompson PA-C [facility] [address] [place] [address] Cardiology 03/28/21 documented as of this encounter
--- OUTSIDE RECORDS SUMMARY | 2025-02-24 14:55 | XMS_ITS | Encounter Summary ---
Author Organization [facility] Address [address] [place] [address] Care Team Providers Care Anglesmith Name Role Phone Stef Kaufman MD Primary Care Provider [phone] Mario Alberto Joseph MD Unavailable [phone] Shilpa Thompson PA-C Unavailable Unavailab [facility], Pcp Primary Care Provider Unavailabl e Encounter Details Date Type Department Care Team Description 02/14/2018 Orders Only Adult Medicine [facility] [address] [place], [place] [phone] Stef Kaufman MD [address] [place] [address] Decreased GFR (Primary Dx) Social History Tobacco Use Types Packs/Day Years [...] as of this encounter Results * (ABNORMAL) BASIC METABOLIC PANEL (05/03/2018 11:15 AM EDT) [facility] GLUCOSE 91 70 - 100 mg/dL 05/03/2018 1:14 PM EDT [facility] Comment: Reference range applicable to fasting specimens only Based on recommendations from the ADA and AACE, the fasting glucose reference range has been changed to 70-100 mg/dL. ??This change is effective February 24, 2010 BUN 32(H) 5 - 25 mg/dL 05/03/2018 1:14 PM EDT [facility] CREAT 1.2 0.7 - 1.5 mg/dL 05/03/2018 1:14 PM EDT [facility] GFR > 60 >60 05/03/2018 1:14 PM EDT [facility] Comment: If patient is -Beninese, multiply result by 1.21 Chronic Kidney Disease: < 60 ml/min/1.73 square meters Kidney Failure: < 15 ml/min/1.73 square meters Sodium 139 133 - 145 mEq/L 05/03/2018 1:14 PM EDT [facility] Potassium 4.9 3.5 - 5.5 mEq/L 05/03/2018 1:14 PM EDT [facility] Chloride 102 96 - 108 mEq/L 05/03/2018 1:14 PM EDT [facility] CO2 26.7 21.0 - 32.0 mEq/L 05/03/2018 1:14 PM EDT [facility] CALCIUM 9.3 8.5 - 10.5 mg/dL 05/03/2018 1:14 PM EDT [facility] 05/03/2018 11:1 5 AM EDT 05/03/2018 11:16 AM EDT Stef Kaufman MD [facility] [address] [place] [address] documented in this encounter Visit Diagnoses Diagnosis Decreased GFR- Primary Nonspecific abnormal results of kidney function study documented in this encounter Care Teams Anglesmith Relationship Specialty Start Date End Date Stef Kaufman MD [address] [place] [address] PCP - General 12/05/09 02/09/23 Community, Pcp [address] [facility] [address] [place] [address] PCP - General Internal Medicine 02/10/23 Mario Alberto Joseph MD [address] [facility] [address] [place] [address] Specialist Cardiovascular Disease 03/28/21 Shilpa Thompson, SHUBHAM [address] [facility] [address] [place] [address] Cardiology 03/28/21 documented as of this encounter
--- OUTSIDE RECORDS SUMMARY | 2025-02-24 14:55 | XMS_ITS | Encounter Summary ---
Author Organization [facility] Address [address] [place] [address] Care Team Providers Care Chief Quality Officer Name Role Phone Stef Kaufman MD Primary Care Provider [phone] Mario Alberto Joseph MD Unavailable [phone] Shilpa Thompson PA-C Unavailable Unavailab [facility], Pcp Primary Care Provider Unavailabl e Encounter Details Date Type Department Care Team Description 11/17/2021 Incoming Correspondence Medical Records [address] [place] [address] Vascular, [facility] Heart And [address] [place] [address] Social History Tobacco Use Types Packs/Day Years [...] on filedocumented in this encounter Care Teams Chief Quality Officer Relationship Specialty Start Date End Date Stef Kaufman MD [address] [place] [address] PCP - General 12/05/09 02/09/23 [facility], Pcp [address] [address] PCP - General Internal Medicine 02/10/23 Mario Alberto Joseph MD [address] [address] Specialist Cardiovascular Disease 03/28/21 Shilpa Thompson PA-C [address] [address] Cardiology 03/28/21 documented as of this encounter
--- OUTSIDE RECORDS SUMMARY | 2025-02-24 14:55 | XMS_ITS | Encounter Summary ---
Author Organization [facility], Address [address] [place] [address] Phone Care Team Providers Care Enamel Drier Name Role Phone Stef Kaufman MD Primary Care Provider [phone] Encounter Details Date Type Department Care Team (Late st Contact Info) Description 06/02/2022 Documentation Only [facility], [address] [place] [phone] Lamont Martin MD [address] [place] [phone] Social History Tobacco Use Types Packs/Day Years [...] on filedocumented in this encounter Care Teams Enamel Drier Relationship Specialty Start Date End Date Stef Kaufman MD PCP - General Internal Medicine 03/20/21 documented as of this encounter
--- OUTSIDE RECORDS SUMMARY | 2025-02-24 14:55 | XMS_ITS | Encounter Summary ---
Author Organization [facility] Address [address] [place] [address] Care Team Providers Care Analysis Evaluator Name Role Phone Stef Kaufman MD Primary Care Provider [phone] Mario Alberto Joseph MD Unavailable [phone] Shilpa Thompson PA-C Un[facility] Primary Care Provider Unavailabl e Reason for Visit * Reason Onset Date Comments Ear Pain 08/30/2015 Encounter Details Date Type Department Care Team Description 08/30/2015 Telephone [place] [address] Stef Kaufman MD [address] [place] [address] Ear Pain Social History Tobacco Use Types Packs/Day Years [...] encounter Miscellaneous Notes * Telephone Encounter - Marcelina Morales R.N. - 08/30/2015 2:00 PM EST call #1placed to patient He saw Ranjit on 08/26/15 at the visit he complained of L neck pain pain is behind L ear he has been using ice, and ROM exercises he was asking if Ranjit would or could order an xray?? Ranjit waterman saw patient at last visit is gone for the day and won't be back until Wednesday i advised patient he feels this can wait until Wednesday he denies any chest pain advised patient to call over weekend if needs to be seen he agrees i will forward message to Ranjit * Telephone Encounter - Ladan Queencarolyn - 08/30/2015 1:21 PM EST PATIENT IS CALLING BACK. * Telephone Encounter - Ladan Queencarolyn - 08/30/2015 11:36 AM EST Symptoms patient is presenting: EAR PAIN BEHIND HIS EAR ? PINCH NERVE AND LOOKING TO GET A XRAY. If pain or injury related was it due to an accident at work or from a motor vehicle accident? NO If yes, gather 3rd alliance party insurance information Date of accident/Injury: How long has patient had these symptoms?: COME AND GOES. PCP: Stef Kaufman Payor: [facility] FFS / Plan: HNE MEDICARE PREMIUM $15 [place] / Product Type: MEDICARE [id number] documented in this encounter Plan of Treatment Not on file documented as of this encounter Visit Diagnoses Diagnosis Neck pain- Primary Cervicalgia documented in this encounter Care Teams Analysis Evaluator Relationship Specialty Start Date End Date Stef Kaufman MD [address] [place] [address] PCP - General 12/05/09 02/09/23 [facility], Pcp [address] [address] PCP - General Internal Medicine 02/10/23 Mario Alberto Joseph MD [address] [address] Specialist Cardiovascular Disease 03/28/21 Shilpa Thompson PA-C [address] [address] Cardiology 03/28/21 documented as of this encounter
--- OUTSIDE RECORDS SUMMARY | 2025-02-24 14:55 | XMS_ITS | Encounter Summary ---
Author Organization [facility], Address [address] [place] [address] Phone Care Team Providers Care Tanner Rotary Drum Continuous Process Name Role Phone Stef Kaufman MD Primary Care Provider [phone] Encounter Details Date Type Department Care Team (Late st Contact Info) Description 10/24/2021 Documentation Only [facility], [address] [place] [address] Lamont Martin MD [address] [place] [address] Social History Tobacco Use Types Packs/Day Years [...] on filedocumented in this encounter Care Teams Tanner Rotary Drum Continuous Process Relationship Specialty Start Date End Date Stef Kaufman MD PCP - General Internal Medicine 03/20/21 documented as of this encounter
--- OUTSIDE RECORDS SUMMARY | 2025-02-24 14:55 | XMS_ITS | Encounter Summary ---
Author Organization [facility] Address [address] [place] [address] Care Team Providers Care Title Curative Specialist Name Role Phone Stef Kaufman MD Primary Care Provider [phone] Mario Alberto Joseph MD Unavailable [phone] Shilpa Thompson PA-C Unavailable Un[facility]ab [facility], Pcp Primary Care Provider Unavailabl e Encounter Details Date Type Department Care Team Description 04/06/2022 Hospital Medical Records [address] [place] [address] Social History Tobacco Use Types Packs/Day Years [...] filedocumented in this encounter Care Teams Title Curative Specialist Relationship Specialty Start Date End Date Stef Kaufman MD [address] [place] [address] PCP - General 12/05/09 02/09/23 [facility], Pcp [facility] [address] [place] [address] PCP - General Internal Medicine 02/10/23 Mario Alberto Joseph MD 300 [facility] [address] [place] [address] Specialist Cardiovascular Disease 03/28/21 Shilpa Thompson PA-C [facility] [address] [place] [address] Cardiology 03/28/21 documented as of this encounter
--- OUTSIDE RECORDS SUMMARY | 2025-02-24 14:56 | XMS_ITS | Encounter Summary ---
Author Organization [facility] Address [address] [place] [address] Care Team Providers Care Assembler Adjuster Name Role Phone Stef Kaufman MD Primary Care Provider [phone] Mario Alberto Joseph MD Unavailable [phone] Shilpa Thompson PA-C Unavailable Unavailab [facility], Pcp Primary Care Provider Unavailabl e Encounter Details Date Type Department Care Team Description 09/03/2015 Labor Trainer Report Medical Records [address] [place] [address] Social History Tobacco Use Types Packs/Day Years [...] on filedocumented in this encounter Care Teams Assembler Adjuster Relationship Specialty Start Date End Date Stef Kaufman MD [address] [place] [address] PCP - General 12/05/09 02/09/23 [facility], Pcp [address] [facility] [address] [place] [address] PCP - General Internal Medicine 02/10/23 Mario Alberto Joseph MD 300 [facility] [address] [place] [address] Specialist Cardiovascular Disease 03/28/21 Shilpa Thompson PA-C [address] [facility] [address] [place] [address] Cardiology 03/28/21 documented as of this encounter
--- OUTSIDE RECORDS SUMMARY | 2025-02-24 14:56 | XMS_ITS | Encounter Summary ---
Author Organization [facility] Address [address] [place] [address] Care Team Providers Care Change Release Manager Name Role Phone Stef Kaufman MD Primary Care Provider [phone] Mario Alberto Joseph MD Unavailable [phone] Shilpa Thompson PA-C Unavailable Unavailab [facility], Pcp Primary Care Provider Unavailabl e Encounter Details Date Type Department Care Team Description 02/09/2020 Relationship Assoc Report Medical Records [address] [place] [address] Mario Alberto Joseph MD [address] [place] [address] Social History Tobacco Use Types Packs/Day Years [...] on filedocumented in this encounter Care Teams Change Release Manager Relationship Specialty Start Date End Date Stef Kaufman MD [address] [place] [address] PCP - General 12/05/09 02/09/23 [facility], Pcp [address] [address] PCP - General Internal Medicine 02/10/23 Mario Alberto Joseph MD [address] [place] [address] Specialist Cardiovascular Disease 03/28/21 Shilpa Thompson PA-C 300 [facility] [address] [place] [address] Cardiology 03/28/21 documented as of this encounter
--- OUTSIDE RECORDS SUMMARY | 2025-02-24 14:56 | XMS_ITS | Encounter Summary ---
Author Organization [facility] Address [address] [place] [address] Care Team Providers Care Vacuum Applicator Operator Name Role Phone Stef Kaufman MD Primary Care Provider [phone] Mario Alberto Joseph MD Unavailable [phone] Shilpa Thompson PA-C Un[facility], [facility] Primary Care Provider Unavailabl e Reason for Visit * Reason Onset Date Comments Faxed Order 08/26/2015 Encounter Details Date Type Department Care Team Description 08/26/2015 Telephone Adult Medicine [address] [address] Stef Kaufman MD [address] [place] [address] Faxed Order Social History Tobacco Use [...] encounter Miscellaneous Notes * Telephone Encounter - Jacinto Pineda - 08/26/2015 10:26 AM EST Faxed order for signature documented in this encounter Plan of Treatment Not on file documented as of this encounter Visit Diagnoses Not on filedocumented in this encounter Care Teams Vacuum Applicator Operator Relationship Specialty Start Date End Date Stef Kaufman MD [address] [place] [address] PCP - General 2/25/10 5/2/23 [facility], Pcp 300 [facility] [address] [place] [address] PCP - General Internal Medicine 02/10/23 Mario Alberto Joseph MD 300 [facility] [address] [place] [address] Specialist Cardiovascular Disease 03/28/21 Shilpa Thompson PA-C 300 [facility] [address] [place] [address] Cardiology 03/28/21 documented as of this encounter
--- OUTSIDE RECORDS SUMMARY | 2025-02-24 14:56 | XMS_ITS | Encounter Summary ---
Author Organization [facility] Address [address] [place] [address] Care Team Providers Care Field Care Manager Name Role Phone Stef Kaufman MD Primary Care Provider [phone] Mario Alberto Joseph MD Unavailable [phone] Shilpa Thompson PA-C Unavailable Unavailab [facility], Pcp Primary Care Provider Unavailabl e Encounter Details Date Type Department Care Team Description 08/05/2015 Hospital Medical Records [address] [place] [address] Lg Eaton PA-C Social History Tobacco Use Types Packs/Day Years [...] on filedocumented in this encounter Care Teams Field Care Manager Relationship Specialty Start Date End Date Stef Kaufman MD [address] [place] [address] PCP - General 12/05/09 02/09/23 [facility], Pcp [address] [address] PCP - General Internal Medicine 02/10/23 Mario Alberto Joseph MD [address] [address] Specialist Cardiovascular Disease 03/28/21 Shilpa Thompson PA-C [address] [address] Cardiology 03/28/21 documented as of this encounter
--- OUTSIDE RECORDS SUMMARY | 2025-02-24 14:56 | XMS_ITS | Encounter Summary ---
Author Organization [facility] Address [address] [place] [address] Care Team Providers Care Medical Officer Psychiatry Name Role Phone Stef Kaufman MD Primary Care Provider [phone] Mario Alberto Joseph MD Unavailable [phone] Shilpa Thompson PA-C Un[facility] Primary Care Provider Unavailabl e Reason for Visit * Reason Onset Date Comments Faxed Order 03/20/2016 Encounter Details Date Type Department Care Team Description 03/20/2016 Telephone Adult Medicine [address] [id number] Stef Kaufman MD [address] [place] [address] Faxed Order Social History Tobacco Use [...] * Telephone Encounter - Thelma Peraza - 03/20/2016 1:49 PM EDT Faxed order from attain for 's signature Fax to [phone] documented in this encounter Plan of Treatment Not on file documented as of this encounter Visit Diagnoses Not on filedocumented in this encounter Care Teams Medical Officer Psychiatry Relationship Specialty Start Date End Date Stef Kaufman MD [address] [place] [address] PCP - General 12/05/09 02/09/23 [facility], Pcp 300 [facility] [address] [place] [address] PCP - General Internal Medicine 02/10/23 Mario Alberto Joseph MD [address] [address] Specialist Cardiovascular Disease 03/28/21 Shilpa Thompson PA-C 300 [facility] [address] [place] [address] Cardiology 03/28/21 documented as of this encounter
--- OUTSIDE RECORDS SUMMARY | 2025-02-24 14:56 | XMS_ITS | Encounter Summary ---
Author Organization [facility] Address [address] [place] [address] Care Team Providers Care Plate Painter Apprentice Name Role Phone Stef Kaufman MD Primary Care Provider Mario Alberto Joseph MD Unavailable [phone] Shilpa Thompson PA-C [facility] Primary Care Provider Unavailabl e Reason for Visit * Reason Onset Date Comments Faxed Order 09/17/2015 Encounter Details Date Type Department Care Team Description 09/17/2015 Telephone Adult Medicine [address] [phone] Stef Kaufman MD [address] [place] [address] Faxed Order Social History Tobacco Use [...] * Telephone Encounter - Nicki Mix - 09/17/2015 10:05 AM EST Plan of care documented in this encounter Plan of Treatment Not on file documented as of this encounter Visit Diagnoses Not on filedocumented in this encounter Care Teams Plate Painter Apprentice Relationship Specialty Start Date End Date Stef Kaufman MD [address] [place] [address] PCP - General 12/05/09 02/09/23 [facility], Pcp [address] [place] [address] PCP - General Internal Medicine 02/10/23 Mario Alberto Joseph MD 300 [facility] [address] [place] [address] Specialist Cardiovascular Disease 03/28/21 Shilpa Thompson PA-C 300 [facility] [address] [place] [address] Cardiology 03/28/21 documented as of this encounter
--- OUTSIDE RECORDS SUMMARY | 2025-02-24 14:56 | XMS_ITS | Encounter Summary ---
Author Organization [facility] Address [address] [place] [address] Care Team Providers Care Demolitionist Name Role Phone Stef Kaufman MD Primary Care Provider [phone] Mario Alberto Joseph MD Unavailable [phone] Shilpa Thompson PA-C Unavailable Unavailab [facility], Pcp Primary Care Provider Unavailabl e Encounter Details Date Type Department Care Team Description 06/26/2020 Release of Information Medical Records [address] [place] [address] Abstract, Provider Social History Tobacco Use Types [...] have Coronavirus / COVID-19? No / Unsure 06/25/2020 10:57 AM EDT documented as of this encounter Nursing Notes * Mayte Suarez - 06/26/2020 1:27 PM EDT AUTHORIZATION TO OBTAIN RECORDS [facility]ILED TO [facility] 06/25/20 documented in this encounter Plan of Treatment Not on file documented as of this encounter Visit Diagnoses Not on filedocumented in this encounter Care Teams Demolitionist Relationship Specialty Start Date End Date Stef Kaufman MD [address] [place] [address] PCP - General 2/25/10 5/2/23 [facility], Pcp 300 [facility] [address] [place] [address] PCP - General Internal Medicine 02/10/23 Mario Alberto Joseph MD 300 [facility] [address] [place] [address] Specialist Cardiovascular Disease 03/28/21 Shilpa Thompson PA-C 300 [facility] [address] [place] [address] Cardiology 03/28/21 documented as of this encounter
--- OUTSIDE RECORDS SUMMARY | 2025-02-24 14:56 | XMS_ITS | Encounter Summary ---
Author Organization [facility] Address [address] [place] [address] Care Team Providers Care City Alderman Name Role Phone Stef Rios MD Primary Care Provider [phone] Mario Alberto Joseph MD Unavailable [phone] Shilpa Thompson PA-C [facility] Primary Care Provider Unavailabl e Reason for Visit * Reason Onset Date Comments Rash 06/07/2015 Encounter Details Date Type Department Care Team Description 06/07/2015 Telephone Adult Medicine [address] [address] Stef Rios MD [address] [place] [address] Rash Social History Tobacco Use Types Packs/Day Years [...] Telephone Encounter - Marcelina Morales R.N. - 06/07/2015 9:01 AM EDT [phone] (home) call #1 placed to patient he is c/o red rash in groin area he denies open area, denies drainage he states it is spreading wants to see MD only, no mid-level appt scheduled with Dr Kristina escobar today at 330pm * Telephone Encounter - Balbina Wright - 06/07/2015 8:46 AM EDT Symptoms patient is presenting: Patient requesting appointment with dr rios for today. He said he has had a rash near his groin area. If pain or injury related was it due to an accident at work or from a motor vehicle accident? NO If yes, gather 3rd green party insurance information Date of accident/Injury: How long has patient had these symptoms?: 3 to 4 days PCP: Stef Rios Payor: [facility] FFS / Plan: HNE MEDICARE PREMIUM $15 [place] / Product Type: MEDICARE [id number] documented in this encounter Plan of Treatment Not on file documented as of this encounter Visit Diagnoses Not on filedocumented in this encounter Care Teams City Alderman Relationship Specialty Start Date End Date Stef Rios MD [address] [place] [address] PCP - General 12/05/09 02/09/23 [facility], Pcp [address] [address] PCP - General Internal Medicine 02/10/23 Mario Alberto Joseph MD [address] [address] Specialist Cardiovascular Disease 03/28/21 Shilpa Thompson PA-C [address] [address] Cardiology 03/28/21 documented as of this encounter
--- OUTSIDE RECORDS SUMMARY | 2025-02-24 14:56 | XMS_ITS | Encounter Summary ---
Author Organization [facility] Address [address] [place] [address] Care Team Providers Care Telegraph Office Manager Name Role Phone Stef Kaufman MD Primary Care Provider [phone] Mario Alberto Joseph MD Unavailable [phone] Shilpa Thompson PA-C Un[facility] Primary Care Provider Unavailabl e Reason for Visit * Reason Onset Date Comments medication problems 01/23/2016 Encounter Details Date Type Department Care Team Description 01/23/2016 Telephone [place] [address] Stef Kaufman MD [address] [place] [address] medication problems Social History Tobacco Use Types [...] encounter Miscellaneous Notes * Telephone Encounter - Stef Kaufman MD - 01/23/2016 6:49 PM EDT D/w pt looks like he is taking 20 mg prn But want to be able to take a 2nd tablet of the 20mg by itself is not effective i explained to pt this is not an as needed med as it is an acid suppressor and not and antacid i asked pt to take the one tab daily and if he still has symptoms to contact me and we will go fromthere * Telephone Encounter - Balbina Wright - 01/23/2016 4:29 PM EDT What is the name of the medication patient is having a problem with?: Pantoprazole 20 mg What is the problem?: Patient stated his tumblers supervisor changed it to 40 mg. Or if it can be written as 2 tabs a day for 20 mg. Is the patient calling about the problem? YES If the patient is not the caller who is? Is this a NEW medication?: NO How long has the patient been taking this medication? Who prescribed this medication for the patient? Dr kaufman Who is patients PCP?: Stef Kaufman Payor: [facility]GEN [facility] FFS / Plan: [place] MEDICARE PREMIUM $15 [place] / Product Type: MEDICARE [id number] documented in this encounter Plan of Treatment Not on file documented as of this encounter Visit Diagnoses Not on filedocumented in this encounter Care Teams Telegraph Office Manager Relationship Specialty Start Date End Date Stef Kaufman MD [address] [place] [address] PCP - General 12/05/09 02/09/23 [facility], Pcp [address] [address] PCP - General Internal Medicine 02/10/23 Mario Alberto Joseph MD [address] [address] Specialist Cardiovascular Disease 03/28/21 Shilpa Thompson PA-C [address] [address] Cardiology 03/28/21 documented as of this encounter
--- OUTSIDE RECORDS SUMMARY | 2025-02-24 14:56 | XMS_ITS | Encounter Summary ---
Author Organization [facility] Address [address] [place] [address] Care Team Providers Care Liquefied Natural Gas Operator Name Role Phone Stef Kaufman MD Primary Care Provider [phone] Mario Alberto Joseph MD Unavailable [phone] Shilpa Thompson PA-C Un[facility] Primary Care Provider Unavailabl e Reason for Visit * Reason Onset Date Comments TEST RESULTS 03/12/2016 Encounter Details Date Type Department Care Team Description 03/12/2016 Telephone Adult Medicine [address] [address] Stef Kaufman MD [address] [place] [address] TEST RESULTS Social History Tobacco Use Types [...] Telephone Encounter - Stef Kaufman MD - 03/12/2016 4:59 PM EDT Called and left message that the bnp has decreased at this time recommend pt simply continue the lasix And to reheck this value in one week * Telephone Encounter - Belle Caal - 03/12/2016 2:02 PM EDT Caller requesting call back from provider: Is the caller the patient? YES If caller is not the patient, what is the callers name? N/A Callers relationship to patient? N/A If person calling is not the patient themselves, is there a verbal release in FYI or permanent comments for this person: NO Reason for call back: Patient would like to discuss his rcent blood work with Dr Kaufman. Caller offered to speak with the nurse for assistance: YES Response: Patient offered to speak with nurse for assistance and patient agreed. Message forwarded to nurse. documented in this encounter Plan of Treatment Not on file documented as of this encounter Visit Diagnoses Not on filedocumented in this encounter Care Teams Liquefied Natural Gas Operator Relationship Specialty Start Date End Date Stef Kaufman MD [address] [place] [address] PCP - General 12/05/09 02/09/23 [facility], Pcp [address] [address] PCP - General Internal Medicine 02/10/23 Mario Alberto Joseph MD [address] [address] Specialist Cardiovascular Disease 03/28/21 Shilpa Thompson PA-C [address] [address] Cardiology 03/28/21 documented as of this encounter
--- OUTSIDE RECORDS SUMMARY | 2025-02-24 14:56 | XMS_ITS | Encounter Summary ---
Author Organization [facility] Address [address] [place] [address] Care Team Providers Care Washing Machine Loader And Puller Name Role Phone Stef Kaufman MD Primary Care Provider [phone] Mario Alberto Joseph MD Unavailable [phone] Shilpa Thompson PA-C Unavailable Unavailab [facility], Pcp Primary Care Provider Unavailabl e Encounter Details Date Type Department Care Team Description 12/23/2015 Bed And Breakfast Cook Report Medical Records [address] [place] [address] Sonia Freed Social History Tobacco Use Types [...] on filedocumented in this encounter Care Teams Washing Machine Loader And Puller Relationship Specialty Start Date End Date Stef Kaufman MD [address] [place] [address] PCP - General 12/05/09 02/09/23 [facility], Pcp 300 [facility] [address] [place] [address] PCP - General Internal Medicine 02/10/23 Mario Alberto Joseph MD [facility] [address] [place] [address] Specialist Cardiovascular Disease 03/28/21 Shilpa Thompson PA-C [facility] [address] [place] [address] Cardiology 03/28/21 documented as of this encounter
--- OUTSIDE RECORDS SUMMARY | 2025-02-24 14:56 | XMS_ITS | Encounter Summary ---
Author Organization [facility] Address [address] [place] [address] Care Team Providers Care Probation And Parole Officer Name Role Phone Stef Kaufman MD Primary Care Provider Mario Alberto Joseph MD Unavailable [phone] Shilpa Thompson PA-C Un[facility] Primary Care Provider Unavailabl e Reason for Visit * Reason Onset Date Comments REFERRAL 06/05/2020 Swelling 06/05/2020 Encounter Details Date Type Department Care Team Description 06/05/2020 Telephone Adult Medicine [address] [id number] Stef Kaufman MD [address] [place] [id number] REFERRAL; Swelling Social History Tobacco Use Types Packs/Day Years [...] encounter Miscellaneous Notes * Telephone Encounter - Layla Garcia M.A. - 06/06/2020 9:31 AM EDT I called and left patient a message. He has a 2:45 US today in [place]. * Telephone Encounter - Ciara Batres PA-C - 06/05/2020 6:01 PM EDT Leg ultrasound is ordered. Please contact radiology to see if ultrasound could be done tomorrow () or Wednesday. Ordered stat. Please inform patient that ultrasound has been ordered and that vascular surgery was contacted but unfortunately they are unable to schedule a sooner appointment. * Telephone Encounter - Sondra Squires - 06/05/2020 4:04 PM EDT Spoke to nurse at [facility], they are unable to get the appointment scheduled sooner than 06/13/20. * Telephone Encounter - Sona Davis L.P.N. - 06/05/2020 3:25 PM EDT Spoke with patient, states his foot does get cold at times and red, ( uses cream from Mr Smith in derm for redness swelling on top of foot) Patient wants sooner appt than 06/13/20, feels his foot is worse and also is willing to have Xray done msg to Ciara Batres * Telephone Encounter - Nicki Mix - 06/05/2020 9:08 AM EDT Symptoms patient is presenting: the pt has swelling in his left foot he called [facility] today and needs the nurse to call Yany at [phone] so he can be seen today as he feels worse For ALL patients calling to schedule any appointment (routine, sick visit, follow up, consult, etc.) in the outpatient setting please ask the following questions: ?? Do you have fever of higher than 101, sore throat with difficulty swallowing or severe shortnessof breath? NO If YES to any of these above symptoms, send a message to triage and do not book. Red dot. If no, an audio or video visit should be booked. ?? Have you had close contact with someone with Coronavirus in the last 14 days? NO ?? Have you traveled abroad? NO ?? Have you traveled recently to another state outside of [place], [place], [place], [place], [place], [place], [place]? NO o If yes, did you quarantine for 14 days or have a negative covid test? NO If yes to any of the above, patient is not to be scheduled in office until after 14 day quarantine or negative covid test. If pain or injury related was it due to an accident at work or from a motor vehicle accident? NO If yes, gather 3rd libertarian insurance information Date of accident/Injury: How long has patient had these symptoms?: PCP: Stef Kaufman Payor: [facility] FFS / Plan: [facility] MEDICARE ADVANTAGE $10/$20 / Product Type: MEDICARE [id number] documented in this encounter Plan of Treatment Not on file documented as of this encounter Results * EXTREMITY VEINS STUDY, LIMITED (06/06/2020 3:03 PM EDT) Impressions [facility] - 06/06/2020 3:06 PM EDT : No evidence of deep venous thrombosis. ? POS - [id number] Narrative [facility] - 06/06/2020 3:06 PM EDT EXAM: Limited extremity veins ultrasound HISTORY: ??Left foot swelling COMPARISON: 08/01/2013 FINDINGS: Duplex Doppler scanning of the deep venous system of the left lower extremity is performed. ??Scanning is performed from the proximal common femoral vein and greater saphenous confluence through the popliteal vein. ?? All veins of the deep venous system are normally compressible. ??Normal Doppler flow is demonstrated within them. ??Augmentation maneuvers are normal. ??Calf veins are normally compressible. No popliteal cyst. Ciara Batres PA-C ULTRASOUND [facility] [address] [facility] documented in this encounter Visit Diagnoses Diagnosis Swelling of left foot- Primary Swelling of left foot documented in this encounter Care Teams Probation And Parole Officer Relationship Specialty Start Date End Date Stef Kaufman MD [address] [place] [address] PCP - General 12/05/09 02/09/23 [facility], Pcp [address] [address] PCP - General Internal Medicine 02/10/23 Mario Alberto Joseph MD 300 [facility] [address] [place] [address] Specialist Cardiovascular Disease 03/28/21 Shilpa Thompson PA-C 300 [facility] [address] [place] [address] Cardiology 03/28/21 documented as of this encounter
--- OUTSIDE RECORDS SUMMARY | 2025-02-24 14:56 | XMS_ITS | Encounter Summary ---
Author Organization [facility] Address [address] [place] [address] Care Team Providers Care Deburr Operator Name Role Phone Stef aKufman MD Primary Care Provider [phone] Mario Alberto Joseph MD Unavailable [phone] Shilpa Thompson PA-C Unavailable Unavailab [facility], Pcp Primary Care Provider Unavailabl e Encounter Details Date Type Department Care Team Description 07/04/2020 Release of Information Medical Records [address] [place] [address] Abstract, Provider Social History Tobacco Use Types [...] or suspected to have Coronavirus / COVID-19? Unable to assess 07/06/2020 7:18 AM EDT documented as of this encounter Nursing Notes * Neva Caal - 07/04/2020 3:38 PM EDT AUTHORIZATION TO OBTAIN RECORDS MAILED TO [facility] documented in this encounter Plan of Treatment Not on file documented as of this encounter Visit Diagnoses Not on filedocumented in this encounter Care Teams Deburr Operator Relationship Specialty Start Date End Date Stef Kaufman MD [address] [place] [address] [id number] PCP - General 12/05/09 02/09/23 [facility] Pcp [address] [place] [address] PCP - General Internal Medicine 02/10/23 Mario Alberto Joseph MD 300 [facility] [address] [place] [address] Specialist Cardiovascular Disease 03/28/21 Shilpa Thompson PA-C 300 [facility] [address] [place] [address] Cardiology 03/28/21 documented as of this encounter
--- OUTSIDE RECORDS SUMMARY | 2025-02-24 14:56 | XMS_ITS | Encounter Summary ---
Author Organization [facility] Address [address] [place] [address] Care Team Providers Care Iv Rn Name Role Phone Stef Kaufman MD Primary Care Provider [phone] Mario Alberto Joseph MD Unavailable [phone] Shilpa Thompson PA-C Unavailable Unavailab [facility], Pcp Primary Care Provider Unavailabl e Encounter Details Date Type Department Care Team Description 07/29/2015 Spanisher Report Medical Records [address] [place] [address] Abstract, Provider Social History Tobacco Use Types [...] on filedocumented in this encounter Care Teams Iv Rn Relationship Specialty Start Date End Date Stef Kaufman MD [address] [place] [address] PCP - General 12/05/09 02/09/23 [facility], Pcp [facility] [address] [place] [address] PCP - General Internal Medicine 02/10/23 Mario Alberto Joseph MD 300 [facility] [address] [place] [address] Specialist Cardiovascular Disease 03/28/21 Shilpa Thompson PA-C [facility] [address] [place] [address] Cardiology 03/28/21 documented as of this encounter
--- OUTSIDE RECORDS SUMMARY | 2025-02-24 14:56 | XMS_ITS | Encounter Summary ---
Author Organization [facility] Address [address] [place] [address] Care Team Providers Care Junior High School Teacher Name Role Phone Stef Kaufman MD Primary Care Provider [phone] Mario Alberto Joseph MD Unavailable [phone] Shilpa Thompson PA-C Unavailable Unavailab [facility], Pcp Primary Care Provider Unavailabl e Encounter Details Date Type Department Care Team Description 12/11/2020 Clay Machine Operator Report Medical Records [address] [place] [address] Abstract, Provider Social History Tobacco Use Types [...] on filedocumented in this encounter Care Teams Junior High School Teacher Relationship Specialty Start Date End Date Stef Kaufman MD [address] [place] [address] PCP - General 12/05/09 02/09/23 [facility], Pcp [address] [facility] [address] [place] [address] PCP - General Internal Medicine 02/10/23 Mario Alberto Joseph MD 300 [facility] [address] [place] [address] Specialist Cardiovascular Disease 03/28/21 Shilpa Thompson PA-C [facility] [address] [place] [address] Cardiology 03/28/21 documented as of this encounter
--- OUTSIDE RECORDS SUMMARY | 2025-02-24 14:56 | XMS_ITS | Encounter Summary ---
Author Organization [facility] Address [address] [place] [address] Care Team Providers Care Photogrammetric Tech Name Role Phone Stef Kaufman MD Primary Care Provider [phone] Mario Alberto Joseph MD Unavailable [phone] Shilpa Thompson PA-C Unavailable Unavailab [facility], Pcp Primary Care Provider Unavailabl e Encounter Details Date Type Department Care Team Description 07/30/2015 Hospital Medical Records [address] [place] [address] Richard Graff MD [address] [place] [address] Social History Tobacco Use Types Packs/Day Years [...] on filedocumented in this encounter Care Teams Photogrammetric Tech Relationship Specialty Start Date End Date Stef Kaufman MD [address] [place] [address] PCP - General 12/05/09 02/09/23 [facility], Pcp 300 [facility] [address] [place] [address] PCP - General Internal Medicine 02/10/23 Mario Alberto Joseph MD [address] [address] Specialist Cardiovascular Disease 03/28/21 Shilpa Thompson PA-C 300 [facility] [address] [place] [address] Cardiology 03/28/21 documented as of this encounter
--- OUTSIDE RECORDS SUMMARY | 2025-02-24 14:56 | XMS_ITS | Patient Health Record ---
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, with unspecified presence of clinical manifestation (I70.203) Active confirmed Q7(A), Q8(2B), Q9(1B,2C) Problem Ulcer of toe of right foot (disorder) (984465665 40924214) Skin ulcer of toe of right foot, limited to breakdown of skin (L97.511) Active confirmed Problem Ulcer of toe of left foot (disorder) (257167260 10658477) Skin ulcer of toe of left foot, limited to breakdown of skin (L97.521) Active confirmed Vital Signs Blood pressure diastolic 80 mm Hg 10/19/2024 Height 6ft 1in in 10/19/2024 Blood pressure systolic 120 mm Hg 10/19/2024 Weight 160 lbs 10/19/2024 BMI 21.11 kg/m2 10/19/2024 Procedures Procedure Date Ordered Date Performed Result Body Sit e 55117-OXOWROK NAIL, 6 OR MORE 08/03/2024 N/A 53057 I&D ABSCESS- SIMPLE,SINGLE 08/03/2024 N/A 73171-LLHP SKIN LESIONS, OVER 4 08/03/2024 N/A 47721- Debride <25 sq cm 08/17/2024 N/A 69693-TGVKTJY NAIL, 6 OR MORE 10/19/2024 N/A 89352-Dbylccus Plate 10/19/2024 N/A Encounters Encounter Location Date Provider Diagnosis [facility] [address] [address] 08/03/2024 Maria Teresa Black Abscess of toe, left L02.612 ; Cellulitis of left toe L03.032 ; 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, with unspecified presence of clinical manifestation I70.203 ; Pain in right toe(s) M79.674 ; Pain in left toe(s) M79.675 ; Onychomycosis B35.1 and Xerosis of skin L85.[address] [facility] [address] 08/17/2024 Maria Teresa Black Skin ulcer of toe of left foot, limited to breakdown of skin L97.[address] [facility] [address] 10/19/2024 Maria Teresa Black Onychomycosis B35.1 ; Ingrown nail L60.0 ; Pain in right toe(s) M79.674 ; Pain in left toe(s) M79.675 and 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, with unspecified presence of clinical manifestation I70.203 [facility] [address] [address] 07/31/2024 Maria Teresa David [facility] [address] 07/31/2024 Maria Teresa Black [facility] [address] 08/03/2024 Maria Teresadavid Hernandez [address] [address] 10/19/2024 Maria Teresa Black Assessments Encounter Date [...] Onychomycosis (ICD-10 - B35.1) 08/03/2024 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, with unspecified presence of clinical manifestation (ICD-10 - I70.203) Q7(A), Q8(2B), Q9(1B,2C) 10/19/2024 Pain in right toe(s) (ICD-10 - M79.674) 10/19/2024 Pain in left toe(s) (ICD-10 - M79.675) 08/03/2024 Pain in right toe(s) (ICD-10 - M79.674) 08/03/2024 Pain in left toe(s) (ICD-10 - M79.675) 08/03/2024 Onychomycosis (ICD-10 - B35.1) 10/19/2024 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, with unspecified presence of clinical manifestation (ICD-10 - I70.203) Q7(A), Q8(2B), Q9(1B,2C) 08/03/2024 Xerosis of skin (ICD-10 - L85.3) 08/17/2024 Other Plan Of Treatment Pending Test Test Name Order Date 67754-OXYFNAU NAIL, 6 OR MORE 08/03/2024 99412-OSXYZHB NAIL, 6 OR MORE 10/19/2024 92562-Nwuz Destruction, 1-14 07/15/2011 92198-Hgrhlrfu Plate 10/19/2024 95066- Debride <25 sq cm 08/17/2024 55903 I&D ABSCESS- SIMPLE,SINGLE 024 02279-EXXJ SKIN LESIONS, OVER 4 08/03/20 Insurance Providers Payer Name Payer Address Payer Phone Subscriber Number Group Number Insured Name Patient Relationship to Insured Coverage Start Date Coverage End Date [facility] [address] [place] [address] [id number] Boogie Rodriguez Self - patient is the insured Medical (General) History Medical History History ICD Code neuropathy macular degeneration mumps measles chicken pox back, hip, knee pain Arthritis Cataracts Heart disease Poor circulation Replacement Heart Valves Transfusions Surgical History Surgery Date(Month/Year) appendectomy 2008
--- OUTSIDE RECORDS SUMMARY | 2025-02-24 14:56 | XMS_ITS | Encounter Summary ---
Author Organization [facility] Address [address] [place] [address] Care Team Providers Care Hogshead Mat Assembler Name Role Phone Stef Kaufman MD Primary Care Provider [phone] Mario Alberto Joseph MD Unavailable [phone] Shilpa Thompson PA-C Unavailable Unavailab [facility], Pcp Primary Care Provider Unavailabl e Encounter Details Date Type Department Care Team Description 12/11/2020 SCAN Medical Records [address] [place] [address] Abstract, Provider Social History Tobacco Use Types [...] on filedocumented in this encounter Care Teams Hogshead Mat Assembler Relationship Specialty Start Date End Date Stef Kaufman MD [address] [place] [address] PCP - General 12/05/09 02/09/23 [facility], Pcp [address] [facility] [address] [place] [address] PCP - General Internal Medicine 02/10/23 Mario Alberto Joseph MD 300 [facility] [address] [place] [address] Specialist Cardiovascular Disease 03/28/21 Shilpa Thompson PA-C [facility] [address] [place] [address] Cardiology 03/28/21 documented as of this encounter
[2025-02-24] MEDS: Ampicillin Sodium/Sulbactam Na 3 GM in 0.9 % Sodium Chloride 100 ML IV ×2 (15:38→22:10)
--- NOTE | 2025-02-24 15:41 | PC.NURSE ---
patient a&ox3, iv inserted, additional labs drawn, pt c/o pain to left hand, notable swelling/redness to area. iv abx started per order, call dietz within reach, plan of care ongoing
[2025-02-24 15:48] LABS: Lactic Acid 1.2 mmol/L (0.5-2.0)
[2025-02-24 16:00] VITALS: BP 121/66; PULSE 72; RESP 18; TEMP 36.7; O2SAT 95
--- NOTE | 2025-02-24 16:29 | PM.IMHP ---
History of Present Illness Date of Service: 02/24/25 Attending physician on admission: Lise Pitt Chief Complaint: Worsening hand infection Pt is an 79-year-old male with a PMH significant for?paroxysmal AFib on Eliquis s/p cardioversion, CAD s/p CABG 2014, s/p mitral valve repair, s/p bioprosthetic aortic valve replacement, sick sinus syndrome and complete heart block s/p dual chamber pacemaker in place, and cardiomyopathy with LVEF 45% who presents to the ED with?worsening swelling and redness in his left hand after being bitten by cat 2 days prior. Pt reports on he approached his neighbor's cat which looked friendly however it bit him on his left hand when he went to pick it up. Cat is up-to-date on vaccinations. Pt initially presented to the ED yesterday where he was given 1 dose of Unasyn IV and discharged home on Augmentin for which he took 2 doses. We presents today as swelling, redness, and pain has increased. Pt has reduced range of motion of hand and wrist secondary to swelling and pain. Denies any other systemic symptoms. No fever or chills. Denies nausea or vomiting. No abdominal pain. Denies shortness or breath or difficulty breathing. No chest pain/pressure, palpitations. In the ED pt's vitals stable and WNL. Labs were significant for CRP 4.29 (increased from 1.15 yesterday), otherwise grossly unremarkable and around baseline for pt. No leukocytosis. Stable normocytic anemia of 12.1/36.9. No significant electrolyte abnormalities. Renal function baseline. X-ray of hand yesterday negative for acute bony abnormalities and with mild dorsal soft tissue swelling. ED clinician reached out to Orthopedics who suggested pt be admitted to the hospital for IV antibiotics but with no surgical intervention indicated at this time. Pt was treated in the ED with IVF and Unasyn. Pt is admitted to the hospital for treatment and further evaluation of worse left hand cellulitis from cat bite that has failed outpatient therapy. Review of Systems Review of Systems: Negative except for that which is stated in the HPI. [facility] Medical History Leg edema Afib High cholesterol FH: mitral valve repair Surgical History History of appendectomy Aortic valve replaced Social History Alcohol intake: former Patient Tobacco Use Status: Never used Tobacco Advance Directives: No Advance Directives Information Provided: No Meds Allergies Allergy/AdvReac Type Severity Reaction Status Date / Time Iodinated Contrast Media Allergy Severe Shortness Verified 02/24/25 13:44 [IV Dye, Iodine Containing of Breath Contrast ] iodine [Iodine] Allergy Severe SOB Verified 02/24/25 13:44 Active Medications: Current Medications Sodium Chloride (Ns) 1,000 mls @ 999 mls/hr IV .Q1H1M [facility] Stop: 02/24/25 17:15 Ampicillin Sodium/Sulbactam (Sodium 3 gm/ Sodium Chloride) 100 mls @ 200 mls/hr IV Q6H [facility] Home Medications ?Medication ?Instructions ?Recorded ?Confirmed ?Last Taken ?Type apixaban 5 mg tablet (Eliquis) 5 mg PO BID 03/05/22 07/10/22 Unknown History atorvastatin 10 mg tablet 10 mg PO DAILY 03/05/22 07/10/22 Unknown History furosemide 20 mg tablet 20 mg PO DAILY 03/05/22 07/10/22 Unknown History vitamins A,C,I-unqb-cfrcpf 4,296 1 cap PO BID 03/05/22 07/10/22 Unknown History mcg-226 mg-90 mg capsule (PreserVision AREDS) metoprolol succinate 100 mg 100 mg PO DAILY 02/24/25 Unknown History tablet,extended release 24 hr mometasone 0.1 % topical ointment 1 appl topical DAILY 02/24/25 Unknown History Physical Exam Vital Signs and Narrative: Vital Signs: Last Vital Signs Temp 98.1 F 02/24/25 13:42 Pulse 75 02/24/25 13:42 Resp 18 02/24/25 13:42 BP 128/63 02/24/25 13:42 Pulse Ox 95 02/24/25 13:42 O2 Del Method Room Air 02/24/25 13:42 BMI result Body Mass Index 22.3 General: AOx3, no acute distress Resp: CTA bilaterally CVS: S1, S2, RRR GI: +BS, NT, no distention Skin: Warm, dry Neuro: Cranial nerves II-XII grossly intact bilaterally. Motor grossly intact bilaterally Extremities: Left upper extremity was erythema, warmth, swelling on dorsum aspect of hand and wrist with puncture wound dorsal aspect of hand. Reduced ROM of hand, fingers, and wrist secondary to pain and swelling. As pictured below. Psych: Appropriate affect Results Labs 02/24/25 14:05 02/24/25 14:05 Labs: Laboratory Results - last 24 hr 02/24/25 02/24/25 14:05 15:24 MCV 93.7 MCH 30.7 MCHC 32.8 RDW 13.5 Plt Count 181 MPV 10.0 Immature Gran % (Auto) 0.3 Neut % (Auto) 63.2 Lymph % (Auto) 15.7 L Upton % (Auto) 18.3 H Eos % (Auto) 2.2 Baso % (Auto) 0.3 Lymph # (Auto) 0.9 L Upton # (Auto) 1.1 Eos # (Auto) 0.1 Baso # (Auto) 0.0 Abs Immat Gran (auto) 0.02 Absolute Neuts (auto) 3.7 Absolute Nucleated RBC 0.000 Nucleated RBC % (auto) 0.0 ESR 14 Anion Gap 15 Estim Creat Clear Calc 63.0 Estimated GFR > 60 Random Glucose 120 H Lactic Acid 1.2 Calcium 9.0 C-Reactive Protein 4.29 H Assessment and Plan (1) Cellulitis of left hand: Status: Acute Plan Pt is an 79-year-old male with a PMH significant for?paroxysmal AFib on Eliquis s/p cardioversion, CAD s/p CABG 2014, s/p mitral valve repair, s/p bioprosthetic aortic valve replacement, sick sinus syndrome and complete heart block s/p dual chamber pacemaker in place, and cardiomyopathy with LVEF 45% who presents to the ED with?worsening swelling and redness in his left hand after being bitten by cat 2 days prior. Pt is admitted to the hospital for treatment and further evaluation of worse left hand cellulitis from cat bite that has failed outpatient therapy. Left hand cellulitis Secondary to cat bite 2 days ago; cat up-to-date on vaccinations Initially presented to the ED yesterday and was given Unasyn IV x1 and discharged on Augmentin Experienced worsening redness, swelling, and pain despite taking Augmentin x2 doses No sepsis: Does not meet any SIRS criteria, lactic acid WNL Will treat with Unasyn, started 02/24/2025 Orthopedic consult Diet as tolerated as no indication yet for surgical washout Paroxysmal AFib Continue metoprolol, Eliquis CAD Continue statin Cardiomyopathy Continue furosemide Chronic anemia Stable, at baseline Continue iron supplementation Mood disorder Continue diazepam Full Code Attending:?Dr. Pitt DVT Prophylaxis: On Eliquis Pt will require a hospitalization of at least two nights for treatment of?left hand cellulitis from cat bite that failed outpatient therapy and will require administration of IV antibiotics as well as specialist consultation with Orthopedics. Quality Stroke Does the patient have a stroke diagnosis?: No VTE Prior VTE?: No VTE Risk Level:: Medical - moderate - high VTE Device Contraindication: Treatment Not Indicated VTE Drug Contraindication: N/A - Med Ordered
[2025-02-24] MEDS: 0.9 % Sodium Chloride 1,000 ML 999 ML IV (17:02)
--- NOTE | 2025-02-24 17:23 | PHA.MEDREC ---
Addendum entered by Fred Carias RP 02/24/25 17:36: Reviewed by [facility] Original Note: Pharmacy Consult ? Medication Reconciliation Pharmacy has completed the medication reconciliation. Spoke to pt to confirm meds. Pt not using mometasone anymore.
[2025-02-24 18:42] VITALS: BMI 22.4
[2025-02-24 18:57] VITALS: BP 133/63; PULSE 69; RESP 16; TEMP 36.4; O2SAT 96
[2025-02-24] MEDS: 0.9 % Sodium Chloride Flush 3 ML SYRINGE IVFLUSH (22:15)
[2025-02-24] MEDS: Apixaban 5 MG TABLET PO (22:51)
[2025-02-24] MEDS: Atorvastatin Calcium 10 MG TABLET PO (22:51)
[2025-02-25 03:35] VITALS: BP 137/71; PULSE 80; RESP 18; TEMP 36.4; O2SAT 99
[2025-02-25] MEDS: Ampicillin Sodium/Sulbactam Na 3 GM in 0.9 % Sodium Chloride 100 ML IV ×4 (03:42→21:40)
--- NOTE | 2025-02-25 07:08 | PM.CNOR ---
History of Present Illness HPI Consult date: 02/25/25 Chief complaint: Right hand infection from cat bite Narrative: Mr. Pike is an 79-year-old male with a PMH significant for?paroxysmal AFib on Eliquis s/p cardioversion, CAD s/p CABG 2014, s/p mitral valve repair, s/p bioprosthetic aortic valve replacement, sick sinus syndrome and complete heart block s/p dual chamber pacemaker in place, and cardiomyopathy with LVEF 45% who presented to the ED with?worsening swelling and redness in his left hand after being bitten by cat 3 days ago. Patient reports on he approached his neighbor's cat which looked friendly however it bit him on his left hand when he went to pick it up. Cat is up-to-date on vaccinations. Initially the patient presented to the ED 2 days ago where he was given 1 dose of Unasyn IV and discharged home on Augmentin for which he took 2 doses. He was instructed to come back if swelling, redness, and pain has increased which prompted his return. Review of Systems Review of Systems: Yes all other systems are reviewed and are negative [facility] Past Medical History Medical History Leg edema Afib High cholesterol FH: mitral valve repair Surgical History Surgical History History of appendectomy Aortic valve replaced Social History Social History Household Members: None Housing: House Do you presently have visiting nurse or other home services: No Alcohol intake: former Patient Tobacco Use Status: Never used Tobacco Smoked in Last 30 Days: No Patient Interested in Nicotine Replacement: No Patient Given Instructions on How to Stop Smoking: No Second Hand Smoke Exposure: No Use of substances other than those prescribed or required for medical reasons: No Currently Displaying Signs/Symptoms of Drug Intoxication Withdrawal: No Have you been hit, kicked, punched, or otherwise hurt by someone within the past year? If so, by whom?: No Do you feel safe in your current relationship?: Yes Is there a partner from a previous relationship who is making you feel unsafe now?: No Are you made to feel afraid or neglected: No Advance Directives: No Advance Directives Information Provided: No Do you have a plan to hurt others: No Plan Recently lost weight without trying: No Eating poorly because of decreased appetite: No Nutrition Risks: No Nutritional Risk Poor oral hygiene: No Meds Allergies Allergy/AdvReac Type Severity Reaction Status Date / Time Iodinated Contrast Media Allergy Severe Shortness Verified 02/24/25 13:44 [IV Dye, Iodine Containing of Breath Contrast ] iodine [Iodine] Allergy Severe SOB Verified 02/24/25 13:44 Active Medications: Current Medications Acetaminophen (Acetaminophen 325 Mg Tablet) 650 mg PO Q6H PRN PRN Reason: Pain, Mild 1-3,fever,headache Apixaban (Apixaban 5 Mg Tablet) 5 mg PO BID [facility] Last Admin: 02/24/25 22:51 Dose: 5 mg Atorvastatin Calcium (Atorvastatin Calcium 10 Mg Tablet) 10 mg PO BEDTIME [facility] Last Admin: 02/24/25 22:51 Dose: 10 mg Calcium Carbonate (Calcium Carbonate 750 Mg Tab.Chew) 750 mg PO Q4H PRN PRN Reason: Heartburn Furosemide (Furosemide 20 Mg Tablet) 20 mg PO DAILY [facility]; Protocol Ampicillin Sodium/Sulbactam (Sodium 3 gm/ Sodium Chloride) 100 mls @ 200 mls/hr IV Q6H [facility] Last Infusion: 02/25/25 04:12 Dose: Infused Magnesium Hydroxide (Milk Of Magnesia 30 Ml Oral.Susp) 30 ml PO DAILY PRN PRN Reason: Constipation Melatonin (Melatonin 3 Mg Tablet) 6 mg PO BEDTIME PRN PRN Reason: Insomnia Metoprolol Succinate (Metoprolol Succinate Er 100 Mg Tab.Er.24h) 100 mg PO DAILY [facility]; Protocol Multivitamins/Vitamin C (Multivitamin Tablet) 1 tab PO DAILY [facility] Sodium Chloride (0.9 % Sodium Chloride Flush 3 Ml Syringe) 3 ml IVFLUSH QSHIFT [facility] Last Admin: 02/24/25 22:15 Dose: 3 ml Home Medications ?Medication ?Instructions ?Recorded ?Confirmed ?Last Taken ?Type apixaban 5 mg tablet (Eliquis) 5 mg PO BID 03/05/22 02/24/25 02/24/25 09:00 History atorvastatin 10 mg tablet 10 mg PO BEDTIME 03/05/22 02/24/25 Unknown History furosemide 20 mg tablet 20 mg PO DAILY 03/05/22 02/24/25 02/24/25 09:00 History vitamins A,C,U-xxty-futops 4,296 1 cap PO BID 03/05/22 02/24/25 02/24/25 09:00 History mcg-226 mg-90 mg capsule (PreserVision AREDS) metoprolol succinate 100 mg 100 mg PO DAILY 02/24/25 02/24/25 02/24/25 09:00 History tablet,extended release 24 hr Physical Exam Vital Signs: Vital Signs: Last Vital Signs Temp 97.5 F 02/25/25 03:35 Pulse 80 02/25/25 03:35 Resp 18 02/25/25 03:35 BP 137/71 02/25/25 03:35 Pulse Ox 99 02/25/25 03:35 O2 Del Method Room Air 02/25/25 03:35 BMI result Body Mass Index 22.4 Const: General: cooperative, healthy appearing and no acute distress Resp: Effort & Inspection: normal respiratory effort and able to speak in complete sentences Cardio: Rate: regular rate Peripheral pulses: Peripheral pulses 2+ throughout GI: Palpation (GI): Soft to palpation Skin: Lesions: no lesions Rashes: no rashes Extrem: Other: Left hand two puncture wounds on the dorsal aspect. No purulent discharge from the puncture wounds. Cellulitic. No area of fluctuance. No evidence of flexor or extensor tenosynovitis. Able to flex and extend all digits. Able to make a fist. Sensation intact. Capillary refill is brisk. Results Labs 02/24/25 14:05 02/24/25 14:05 Labs: Abnormal lab results 02/24/25 Range/Units 14:05 RBC 3.94 L (4.60-5.80) X10*6/uL Hgb 12.1 L (14.0-18.0) g/dl Hct 36.9 L (42.0-52.0) % Lymph % (Auto) 15.7 L (20-40) % [place] % (Auto) 18.3 H (2-11) % Lymph # (Auto) 0.9 L (1.2-4.9) X10*3/uL BUN 28 H (9-16) mg/dL Random Glucose 120 H (60-115) mg/dL C-Reactive Protein 4.29 H (< or = 0.50) mg/dL H & H 02/24/25 Range/Units 14:05 Hgb 12.1 L (14.0-18.0) g/dl Hct 36.9 L (42.0-52.0) % All other labs normal. Assessment and Plan (1) Cellulitis of left hand: Status: Acute (2) Cat bite: Status: Acute Plan No evidence of flexor or extensor tenosynovitis Dressing changes daily by nursing Continue IV abx per medicine No orthopedic intervention needed at this time Encourage gentle ROM of the hand Procedures Date of Service Date of Service: 02/25/25
[2025-02-25 08:05] VITALS: BP 98/60; PULSE 70; RESP 16; TEMP 36.2; O2SAT 98
--- NOTE | 2025-02-25 08:27 | PC.NURSE ---
02/25 morning bp 98/60 manually HR 70, hospitalist contacted regarding scheduled metoprolol er 100mg and furosemide 20mg. BRODERICK Toribio advised RN to hold both medications
[2025-02-25] MEDS: 0.9 % Sodium Chloride Flush 3 ML SYRINGE IVFLUSH ×3 (08:37→23:45)
[2025-02-25] MEDS: Apixaban 5 MG TABLET PO ×2 (08:37→19:56)
[2025-02-25] MEDS: Multivitamin TABLET 1 TAB PO (08:37)
--- NOTE | 2025-02-25 09:50 | P.PNIM_ITS ---
Subjective Subjective Date of Service: 02/25/25 Interval History: Pt seen and evaluated this morning in his room where he reports overall feels better No acute events overnight Some improvement in redness and swelling of hand and arm Pain has been minimal, only with palpation Still reduced ROM secondary to swelling Denies fever or chills No drainage from wound Review of Systems Review of Systems: Yes all other systems are reviewed and are negative Physical Exam 2 Vital Signs: Vital Signs: Last Vital Signs Temp 97.2 F 02/25/25 08:05 Pulse 70 02/25/25 08:05 Resp 16 02/25/25 08:05 BP 98/60 02/25/25 08:05 Pulse Ox 98 02/25/25 08:05 O2 Del Method Room Air 02/25/25 08:05 BMI result Body Mass Index 22.4 General: AOx3, no acute distress Resp: CTA bilaterally CVS: S1, S2, RRR GI: +BS, NT, no distention Skin: Warm, dry Neuro: Cranial nerves II-XII grossly intact bilaterally. Motor grossly intact bilaterally Extremities: Improved erythema and awrmth of left hand and wrist, continued swelling on dorsal aspect of hand and wrist. Puncture wound on dorsal aspect of hand without purulent discharge. Capable of moving wrist and all fingers but with some reduced ROM. Psych: Appropriate affect Objective Data Active Medications Acetaminophen (Acetaminophen 325 Mg Tablet) 650 mg PO Q6H PRN PRN Reason: Pain, Mild 1-3,fever,headache Apixaban (Apixaban 5 Mg Tablet) 5 mg PO BID [facility] Last Admin: 02/25/25 08:37 Dose: 5 mg Documented By: DOMENICO Atorvastatin Calcium (Atorvastatin Calcium 10 Mg Tablet) 10 mg PO BEDTIME [facility] Last Admin: 02/24/25 22:51 Dose: 10 mg Documented By: HAYDER Calcium Carbonate (Calcium Carbonate 750 Mg Tab.Chew) 750 mg PO Q4H PRN PRN Reason: Heartburn Docusate Sodium (Docusate Sodium 100 Mg Capsule) 100 mg PO BID PRN PRN Reason: Constipation Furosemide (Furosemide 20 Mg Tablet) 20 mg PO DAILY [facility]; Protocol Last Admin: 02/25/25 08:27 Dose: Not Given Documented By: DOMENICO Non-Admin Reason: Decreased Blood Pressure Ampicillin Sodium/Sulbactam (Sodium 3 gm/ Sodium Chloride) 100 mls @ 200 mls/hr IV Q6H [facility] Last Infusion: 02/25/25 04:12 Dose: Infused Documented By: HAYDER Magnesium Hydroxide (Milk Of Magnesia 30 Ml Oral.Susp) 30 ml PO DAILY PRN PRN Reason: Constipation Melatonin (Melatonin 3 Mg Tablet) 6 mg PO BEDTIME PRN PRN Reason: Insomnia Metoprolol Succinate (Metoprolol Succinate Er 100 Mg Tab.Er.24h) 100 mg PO DAILY [facility]; Protocol Last Admin: 02/25/25 08:27 Dose: Not Given Documented By: DOMENICO Non-Admin Reason: Decreased Blood Pressure Multivitamins/Vitamin C (Multivitamin Tablet) 1 tab PO DAILY [facility] Last Admin: 02/25/25 08:37 Dose: 1 tab Documented By: DOMENICO Sodium Chloride (0.9 % Sodium Chloride Flush 3 Ml Syringe) 3 ml IVFLUSH QSHIFT [facility] Last Admin: 02/25/25 08:37 Dose: 3 ml Documented By: ODMENICO Labs 02/24/25 14:05 02/24/25 14:05 Labs: Laboratory Results - last 24 hr 02/24/25 02/24/25 14:05 15:24 MCV 93.7 MCH 30.7 MCHC 32.8 RDW 13.5 Plt Count 181 MPV 10.0 Immature Gran % (Auto) 0.3 Neut % (Auto) 63.2 Lymph % (Auto) 15.7 L [place] % (Auto) 18.3 H Eos % (Auto) 2.2 Baso % (Auto) 0.3 Lymph # (Auto) 0.9 L [place] # (Auto) 1.1 Eos # (Auto) 0.1 Baso # (Auto) 0.0 Abs Immat Gran (auto) 0.02 Absolute Neuts (auto) 3.7 Absolute Nucleated RBC 0.000 Nucleated RBC % (auto) 0.0 ESR 14 Anion Gap 15 Estim Creat Clear Calc 63.0 Estimated GFR > 60 Random Glucose 120 H Lactic Acid 1.2 Calcium 9.0 C-Reactive Protein 4.29 H Assessment and Plan (1) Cellulitis of left hand: Status: Acute (2) Cat bite: Status: Acute Plan Pt is an 79-year-old male with a PMH significant for?paroxysmal AFib on Eliquis s/p cardioversion, CAD s/p CABG 2014, s/p mitral valve repair, s/p bioprosthetic aortic valve replacement, sick sinus syndrome and complete heart block s/p dual chamber pacemaker in place, and cardiomyopathy with LVEF 45% who presents to the ED with?worsening swelling and redness in his left hand after being bitten by cat 2 days prior. Pt is admitted to the hospital for treatment and further evaluation of worse left hand cellulitis from cat bite that has failed outpatient therapy. Left hand cellulitis Secondary to cat bite 3 days ago; cat up-to-date on vaccinations Initially presented to the ED on Wednesday and was given Unasyn IV x1 and discharged on Augmentin Experienced worsening redness, swelling, and pain despite taking Augmentin x2 doses No sepsis: Does not meet any SIRS criteria, lactic acid WNL Erythema with improvement, swelling persists Continue Unasyn, Day 2 (started 02/24/2025) Was seen by orthopedics, no evidence of flexor or extensor tenosynovitis, no at orthopedic intervention needed at this time Dressing changes daily by nursing Encouraged gentle ROM of the hand Paroxysmal AFib Continue metoprolol, Eliquis CAD Continue statin Cardiomyopathy Continue furosemide Chronic anemia Stable, at baseline Continue iron supplementation Mood disorder Continue diazepam Full Code DVT Prophylaxis: On Eliquis Pt needs continued hospitalization for continued treatment with IV antibiotics of left hand cellulitis from a cat bite that failed outpatient therapy. Quality Stroke Does the patient have a stroke diagnosis?: No VTE Prior VTE?: No VTE Risk Level:: Medical - moderate - high VTE Device Contraindication: Treatment Not Indicated VTE Drug Contraindication: N/A - Med Ordered
[2025-02-25] MEDS: Docusate Sodium 100 MG CAPSULE PO ×2 (10:02→20:26)
[2025-02-25] MEDS: Sodium Chloride 0.65 % Nasal 44 ML SPRBTL 1 SPRAY NOSTRIL-B (13:50)
[2025-02-25 15:17] VITALS: BP 130/63; PULSE 67; RESP 18; TEMP 36.6; O2SAT 98
--- NOTE | 2025-02-25 16:11 | MHC.CM.PN ---
PT REPORTS HE LIVES ALONE AND IS INDEPENDENT WITH CARE HE HAS NO DME AND NO SERVICES COPY OF HCP REQUESTED, HE REPORTS HIS FRIEND, ALLEY, IS HIS AGENT PCP: [facility] DELIVERED DCP: HOME NO SERVICES VIA SELF TRANSPORT
[2025-02-25 19:18] VITALS: BP 123/56; PULSE 75; RESP 18; TEMP 36.7; O2SAT 99
[2025-02-25] MEDS: Atorvastatin Calcium 10 MG TABLET PO (19:56)
[2025-02-26 03:35] VITALS: BP 130/60; PULSE 71; RESP 17; TEMP 36.7; O2SAT 100
[2025-02-26] MEDS: Ampicillin Sodium/Sulbactam Na 3 GM in 0.9 % Sodium Chloride 100 ML IV ×4 (03:43→22:07)
[2025-02-26 07:16] VITALS: BP 119/59; PULSE 66; RESP 20; TEMP 36.9; O2SAT 100
--- NOTE | 2025-02-26 09:24 | HO.PM.IMPN ---
Subjective Subjective Date of Service: 02/26/25 Interval History: Pt seen and evaluated this morning in his room where he reports overall feels better No acute events overnight Redness is better Pain has been minimal, only with palpation Still reduced ROM secondary to swelling Denies fever or chills No drainage from wound Review of Systems Review of Systems: Yes all other systems are reviewed and are negative Physical Exam Vital Signs: Vital Signs: Last Vital Signs Temp 98.4 F 02/26/25 07:16 Pulse 66 02/26/25 07:16 Resp 20 02/26/25 07:16 BP 119/59 L 02/26/25 07:16 Pulse Ox 100 02/26/25 07:16 O2 Del Method Room Air 02/26/25 07:16 BMI result Body Mass Index 22.4 General: AOx3, no acute distress Resp: CTA bilaterally CVS: S1, S2, RRR GI: +BS, NT, no distention Skin: Warm, dry Neuro: Cranial nerves II-XII grossly intact bilaterally. Motor grossly intact bilaterally Extremities: Improved erythema and awrmth of left hand and wrist, continued swelling on dorsal aspect of hand and wrist. Puncture wound on dorsal aspect of hand without purulent discharge. Capable of moving wrist and all fingers but with some reduced ROM. Psych: Appropriate affect Objective Data Active Medications Acetaminophen (Acetaminophen 325 Mg Tablet) 650 mg PO Q6H PRN PRN Reason: Pain, Mild 1-3,fever,headache Apixaban (Apixaban 5 Mg Tablet) 5 mg PO BID [facility] Last Admin: 02/25/25 19:56 Dose: 5 mg Documented By: ANTOINETTE Atorvastatin Calcium (Atorvastatin Calcium 10 Mg Tablet) 10 mg PO BEDTIME [facility] Last Admin: 02/25/25 19:56 Dose: 10 mg Documented By: ANTOINETTE Calcium Carbonate (Calcium Carbonate 750 Mg Tab.Chew) 750 mg PO Q4H PRN PRN Reason: Heartburn Docusate Sodium (Docusate Sodium 100 Mg Capsule) 100 mg PO BID PRN PRN Reason: Constipation Last Admin: 02/25/25 20:26 Dose: 100 mg Documented By: ANTOINETTE Furosemide (Furosemide 20 Mg Tablet) 20 mg PO DAILY [facility]; Protocol Last Admin: 02/25/25 08:27 Dose: Not Given Documented By: DOMENICO Non-Admin Reason: Decreased Blood Pressure Ampicillin Sodium/Sulbactam (Sodium 3 gm/ Sodium Chloride) 100 mls @ 200 mls/hr IV Q6H [facility] Last Infusion: 02/26/25 04:17 Dose: Infused Documented By: LANETTE Magnesium Hydroxide (Milk Of Magnesia 30 Ml Oral.Susp) 30 ml PO DAILY PRN PRN Reason: Constipation Melatonin (Melatonin 3 Mg Tablet) 6 mg PO BEDTIME PRN PRN Reason: Insomnia Metoprolol Succinate (Metoprolol Succinate Er 100 Mg Tab.Er.24h) 100 mg PO DAILY [facility]; Protocol Last Admin: 02/25/25 08:27 Dose: Not Given Documented By: DOMENICO Non-Admin Reason: Decreased Blood Pressure Multivitamins/Vitamin C (Multivitamin Tablet) 1 tab PO DAILY [facility] Last Admin: 02/25/25 08:37 Dose: 1 tab Documented By: DOMENICO Sodium Chloride (0.9 % Sodium Chloride Flush 3 Ml Syringe) 3 ml IVFLUSH QSHIFT [facility] Last Admin: 02/25/25 23:45 Dose: 3 ml Documented By: LANETTE Sodium Chloride (Sodium Chloride 0.65 % Nasal 44 Ml Sprbtl) 1 spray NOSTRIL-B Q1H PRN PRN Reason: Nasal dryness Last Admin: 02/25/25 13:50 Dose: 1 spray Documented By: DOMENICO Labs 02/24/25 14:05 02/24/25 14:05 Microbiology Microbiology Results: Microbiology 02/24/25 15:30 Blood Culture - Preliminary Blood - Venous No growth after 24 hours. 02/24/25 15:24 Blood Culture - Preliminary Blood - Venous No growth after 24 hours. Assessment and Plan (1) Cellulitis of left hand: Status: Acute (2) Cat bite: Status: Acute Plan Pt is an 79-year-old male with a PMH significant for?paroxysmal AFib on Eliquis s/p cardioversion, CAD s/p CABG 2014, s/p mitral valve repair, s/p bioprosthetic aortic valve replacement, sick sinus syndrome and complete heart block s/p dual chamber pacemaker in place, and cardiomyopathy with LVEF 45% who presents to the ED with?worsening swelling and redness in his left hand after being bitten by cat 2 days prior. Pt is admitted to the hospital for treatment and further evaluation of worse left hand cellulitis from cat bite that has failed outpatient therapy. Left hand cellulitis Secondary to cat bite 3 days ago; cat up-to-date on vaccinations Initially presented to the ED on Wednesday and was given Unasyn IV x1 and discharged on Augmentin Experienced worsening redness, swelling, and pain despite taking Augmentin x2 doses No sepsis: Does not meet any SIRS criteria, lactic acid WNL Erythema with improvement, swelling persists Continue Unasyn, Day 3 (started 02/24/2025) Was seen by orthopedics, no evidence of flexor or extensor tenosynovitis, no at orthopedic intervention needed at this time Dressing changes daily by nursing, ID consult today and possible dc Encouraged gentle ROM of the hand Paroxysmal AFib Continue metoprolol, Eliquis CAD Continue statin Cardiomyopathy Continue furosemide Chronic anemia Stable, at baseline Continue iron supplementation Mood disorder Continue diazepam Full Code DVT Prophylaxis: On Eliquis Pt needs continued hospitalization for continued treatment with IV antibiotics of left hand cellulitis from a cat bite that failed outpatient therapy. Quality Stroke Does the patient have a stroke diagnosis?: No VTE Prior VTE?: No VTE Risk Level:: Medical - moderate - high VTE Device Contraindication: Treatment Not Indicated VTE Drug Contraindication: N/A - Med Ordered
[2025-02-26 09:28] VITALS: BP 125/56
[2025-02-26] MEDS: 0.9 % Sodium Chloride Flush 3 ML SYRINGE IVFLUSH ×3 (09:28→22:07)
[2025-02-26] MEDS: Furosemide 20 MG TABLET PO (09:28)
[2025-02-26 09:29] VITALS: BP 125/66; PULSE 76
[2025-02-26] MEDS: Apixaban 5 MG TABLET PO ×2 (09:29→20:22)
[2025-02-26] MEDS: Metoprolol Succinate ER 100 MG TAB.ER.24H PO (09:29)
--- NOTE | 2025-02-26 12:55 | MHC.CM.PN ---
Per MD rounds not medically cleared for dc at this time. Awaiting ID consult. CM will continue to follow.
[2025-02-26 16:00] VITALS: BP 105/54; PULSE 64; RESP 18; TEMP 36.9; O2SAT 99
[2025-02-26 19:40] VITALS: BP 110/49; PULSE 75; RESP 18; TEMP 36.1; O2SAT 98
[2025-02-26] MEDS: Atorvastatin Calcium 10 MG TABLET PO (20:22)
[2025-02-27 03:31] VITALS: BP 128/59; PULSE 61; RESP 18; TEMP 36.1; O2SAT 100
[2025-02-27] MEDS: Ampicillin Sodium/Sulbactam Na 3 GM in 0.9 % Sodium Chloride 100 ML IV ×4 (03:46→21:43)
[2025-02-27 07:29] VITALS: BP 101/55; PULSE 73; RESP 18; TEMP 36.1; O2SAT 98
[2025-02-27] MEDS: Metoprolol Succinate ER 100 MG TAB.ER.24H PO (09:09)
[2025-02-27] MEDS: Apixaban 5 MG TABLET PO ×2 (09:09→20:24)
[2025-02-27] MEDS: Multivitamin TABLET 1 TAB PO (09:09)
[2025-02-27] MEDS: Furosemide 20 MG TABLET PO (09:10)
[2025-02-27] MEDS: 0.9 % Sodium Chloride Flush 3 ML SYRINGE IVFLUSH ×3 (09:14→21:44)
[2025-02-27] MEDS: Docusate Sodium 100 MG CAPSULE PO (09:40)
--- NOTE | 2025-02-27 11:31 | HO.PM.IMPN ---
Subjective Subjective Date of Service: 02/27/25 Interval History: f/u on cat bite cellulitis less swelling and redness anb better ROM in the fingers Physical Exam Vital Signs: Vital Signs: Last Vital Signs Temp 97.0 F 02/27/25 07:29 Pulse 73 02/27/25 07:29 Resp 18 02/27/25 07:29 BP 101/55 L 02/27/25 07:29 Pulse Ox 98 02/27/25 07:29 O2 Del Method Room Air 02/27/25 07:29 BMI result Body Mass Index 22.4 Const: Other: left hand: Objective Data Active Medications Acetaminophen (Acetaminophen 325 Mg Tablet) 650 mg PO Q6H PRN PRN Reason: Pain, Mild 1-3,fever,headache Apixaban (Apixaban 5 Mg Tablet) 5 mg PO BID [facility] Last Admin: 02/27/25 09:09 Dose: 5 mg Documented By: ANU Atorvastatin Calcium (Atorvastatin Calcium 10 Mg Tablet) 10 mg PO BEDTIME [facility] Last Admin: 02/26/25 20:22 Dose: 10 mg Documented By: HAYDER Calcium Carbonate (Calcium Carbonate 750 Mg Tab.Chew) 750 mg PO Q4H PRN PRN Reason: Heartburn Docusate Sodium (Docusate Sodium 100 Mg Capsule) 100 mg PO BID PRN PRN Reason: Constipation Last Admin: 02/27/25 09:40 Dose: 100 mg Documented By: ANU Furosemide (Furosemide 20 Mg Tablet) 20 mg PO DAILY [facility]; Protocol Last Admin: 02/27/25 09:10 Dose: 20 mg Documented By: ANU Ampicillin Sodium/Sulbactam (Sodium 3 gm/ Sodium Chloride) 100 mls @ 200 mls/hr IV Q6H [facility] Last Infusion: 02/27/25 10:26 Dose: Infused Documented By: ANU Magnesium Hydroxide (Milk Of Magnesia 30 Ml Oral.Susp) 30 ml PO DAILY PRN PRN Reason: Constipation Melatonin (Melatonin 3 Mg Tablet) 6 mg PO BEDTIME PRN PRN Reason: Insomnia Metoprolol Succinate (Metoprolol Succinate Er 100 Mg Tab.Er.24h) 100 mg PO DAILY [facility]; Protocol Last Admin: 02/27/25 09:09 Dose: 100 mg Documented By: ANU Multivitamins/Vitamin C (Multivitamin Tablet) 1 tab PO DAILY [facility] Last Admin: 02/27/25 09:09 Dose: 1 tab Documented By: ANU Sodium Chloride (0.9 % Sodium Chloride Flush 3 Ml Syringe) 3 ml IVFLUSH QSHIFT [facility] Last Admin: 02/27/25 09:14 Dose: 3 ml Documented By: ANU Sodium Chloride (Sodium Chloride 0.65 % Nasal 44 Ml Sprbtl) 1 spray NOSTRIL-B Q1H PRN PRN Reason: Nasal dryness Last Admin: 02/25/25 13:50 Dose: 1 spray Documented By: ODMENICO Labs 02/24/25 14:05 02/24/25 14:05 Microbiology Microbiology Results: Microbiology 02/24/25 15:30 Blood Culture - Preliminary Blood - Venous No growth after 48 hours. 02/24/25 15:24 Blood Culture - Preliminary Blood - Venous No growth after 48 hours. Assessment and Plan (1) Cellulitis of left hand: Status: Acute (2) Cat bite: Status: Acute Plan Pt is an 79-year-old male with a PMH significant for?paroxysmal AFib on Eliquis s/p cardioversion, CAD s/p CABG 2014, s/p mitral valve repair, s/p bioprosthetic aortic valve replacement, sick sinus syndrome and complete heart block s/p dual chamber pacemaker in place, and cardiomyopathy with LVEF 45% who presents to the ED with?worsening swelling and redness in his left hand after being bitten by cat 2 days prior. Pt is admitted to the hospital for treatment and further evaluation of worse left hand cellulitis from cat bite that has failed outpatient therapy. Left hand cellulitisaSecondary to cat bite 3 days [employer]; cat up-to-date on vaccinations Initially presented to the ED on Wednesday and was given Unasyn IV x1 and discharged on Augmentin Experienced worsening redness, swelling, and pain despite taking Augmentin x2 doses No sepsis: Does not meet any SIRS criteria, lactic acid WNL Erythema and swelling better, Continue Unasyn, (started 02/24/2025) Was seen by orthopedics, no evidence of flexor or extensor tenosynovitis, no at orthopedic intervention needed at this time Dressing changes daily by nursing, ID recommends IV Abx for now Encouraged gentle ROM of the hand Paroxysmal AFib Continue metoprolol, Eliquis CAD Continue statin Cardiomyopathy Continue furosemide Chronic anemia Stable, at baseline Continue iron supplementation Mood disorder Continue diazepam Full Code DVT Prophylaxis: On Eliquis Pt needs continued hospitalization for continued treatment with IV antibiotics of left hand cellulitis from a cat bite that failed outpatient therapy. Quality Stroke Does the patient have a stroke diagnosis?: No VTE Prior VTE?: No VTE Risk Level:: Medical - moderate - high VTE Device Contraindication: Treatment Not Indicated VTE Drug Contraindication: N/A - Med Ordered
[2025-02-27 15:28] VITALS: BP 92/55; PULSE 81; RESP 18; TEMP 36.4; O2SAT 99
[2025-02-27 15:38] VITALS: BP 105/53
[2025-02-27 19:26] VITALS: BP 127/58; PULSE 86; RESP 18; TEMP 36.4; O2SAT 96
[2025-02-27] MEDS: Atorvastatin Calcium 10 MG TABLET PO (20:23)
[2025-02-28 03:53] VITALS: BP 118/59; PULSE 59; RESP 20; TEMP 36.7; O2SAT 100
[2025-02-28] MEDS: Ampicillin Sodium/Sulbactam Na 3 GM in 0.9 % Sodium Chloride 100 ML IV ×2 (03:59→09:36)
[2025-02-28 05:54] LABS: Hematocrit 35.6 % (42.0-52.0); Hemoglobin 11.8 g/dl (14.0-18.0); Mean Corpuscular HGB Conc 33.1 g/dl (31.0-36.0); Mean Corpuscular Hemoglobin 31.3 pg (27.0-33.0); Mean Corpuscular Volume 94.4 fL (80.0-98.0); Platelet Count 194 X10*3/uL (160-400); Red Blood Count 3.77 X10*6/uL (4.60-5.80); Red Cell Distribution Width 13.2 % (11.0-16.0); White Blood Count 5.2 X10*3/uL (4.8-10.8)
[2025-02-28 06:13] LABS: Anion Gap 13 (12-20); Blood Urea Nitrogen 30 mg/dL (9-16); Calcium 8.2 mg/dL (8.4-10.2); Carbon Dioxide 27 mmol/L (22-29); Chloride 108 mmol/L (96-108); Creatinine Clr Calc Pharmacy 57.2; Estimated Glomerular Filt Rate > 60; Glucose Random 88 mg/dL (60-115); Potassium 4.2 mmol/L (3.3-5.1); Sodium 144 mmol/L (135-145)
[2025-02-28 07:40] VITALS: BP 99/56; PULSE 69; RESP 18; TEMP 36.1; O2SAT 100
[2025-02-28] MEDS: Multivitamin TABLET 1 TAB PO (08:30)
[2025-02-28] MEDS: Furosemide 20 MG TABLET PO (08:30)
[2025-02-28] MEDS: Apixaban 5 MG TABLET PO ×2 (08:30→08:31)
[2025-02-28] MEDS: 0.9 % Sodium Chloride Flush 3 ML SYRINGE IVFLUSH (08:32)
[2025-02-28] MEDS: Docusate Sodium 100 MG CAPSULE PO (08:35)
[2025-02-28 08:37] VITALS: BP 99/56
--- NOTE | 2025-02-28 11:35 | P.DS_ITS ---
DS: Providers Provider Date of Service: 02/28/25 Date of admission: 02/24/25 16:26 Date of discharge: 02/28/25 Primary care physician: Juice Lai MD Consults: 02/24/25 16:56 Consult to Orthopedics Routine Consulting Provider: [facility] Reason for consultation: Left hand cellulitis from cat bite 2 days ago 02/26/25 09:23 Consult to Infectious Diseases Routine Consulting Provider: [facility] Reason for consultation: Cat bite cellultis 02/27/25 07:34 Consult to Wound Care Routine Reason for consultation: manjeet bite/puncture to hand DS: Diagnosis Discharge Diagnosis (1) Cellulitis of left hand: Status: Acute (2) Cat bite: Status: Acute DS: Summary Hospital Course Hospital Course: admission hpi Chief Complaint: Worsening hand infection Pt is an 79-year-old male with a PMH significant for?paroxysmal AFib on Eliquis s/p cardioversion, CAD s/p CABG 2014, s/p mitral valve repair, s/p bioprosthetic aortic valve replacement, sick sinus syndrome and complete heart block s/p dual chamber pacemaker in place, and cardiomyopathy with LVEF 45% who presents to the ED with?worsening swelling and redness in his left hand after being bitten by cat 2 days prior. Pt reports on he approached his neighbor's cat which looked friendly however it bit him on his left hand when he went to pick it up. Cat is up-to-date on vaccinations. Pt initially presented to the ED yesterday where he was given 1 dose of Unasyn IV and discharged home on Augmentin for which he took 2 doses. We presents today as swelling, redness, and pain has increased. Pt has reduced range of motion of hand and wrist secondary to swelling and pain. Denies any other systemic symptoms. No fever or chills. Denies nausea or vomiting. No abdominal pain. Denies shortness or breath or difficulty breathing. No chest pain/pressure, palpitations. In the ED pt's vitals stable and WNL. Labs were significant for CRP 4.29 (increased from 1.15 yesterday), otherwise grossly unremarkable and around baseline for pt. No leukocytosis. Stable normocytic anemia of 12.1/36.9. No significant electrolyte abnormalities. Renal function baseline. X-ray of hand yesterday negative for acute bony abnormalities and with mild dorsal soft tissue swelling. ED clinician reached out to Orthopedics who suggested pt be admitted to the hospital for IV antibiotics but with no surgical intervention indicated at this time. Pt was treated in the ED with IVF and Unasyn. Pt is admitted to the hospital for treatment and further evaluation of worse left hand cellulitis from cat bite that has failed outpatient therapy. hospital course: Patient presented with hand infection steming from a cat bite, he was treated on ouatpeitnt basis with Augmentin and returned 2 days due to worsening and while here treated with IV Unassyn with signficant improvment in the swelling, seen by ortho and no evidence of Tenosynovitis and no intervention, ID recommends IV Unassyn and transition back to Augmentin at discharge for 10 days of antibiotics, he still have 8 days worth of Augmentin at home. Time Attestation Discharge Coordination Time (in mins): 40 Quality: Safe Use of Opioids Does Pt have an Active Cancer Diagnosis on the Problem List?: No Quality: Stroke Does the patient have a stroke diagnosis?: No Physical Exam Vital Signs: Vital Signs: Last Vital Signs Temp 96.9 F 02/28/25 07:40 Pulse 69 02/28/25 07:40 Resp 18 02/28/25 07:40 BP 99/56 L 02/28/25 08:37 Pulse Ox 100 02/28/25 07:40 O2 Del Method Room Air 02/28/25 07:40 BMI result Body Mass Index 22.4 DS: Data Data Completed and Pending Labs on day of discharge: Laboratory Results - last 24 hr 02/28/25 05:33 WBC 5.2 RBC 3.77 L Hgb 11.8 L Hct 35.6 L MCV 94.4 MCH 31.3 MCHC 33.1 RDW 13.2 Plt Count 194 MPV 10.0 Absolute Nucleated RBC 0.000 Nucleated RBC % (auto) 0.0 Sodium 144 Potassium 4.2 Chloride 108 Carbon Dioxide 27 Anion Gap 13 BUN 30 H Creatinine 1.07 Estim Creat Clear Calc 57.2 Estimated GFR > 60 Random Glucose 88 Calcium 8.2 L D Preliminary micro results at discharge 02/24/25 15:30 Blood Culture - Preliminary Blood - Venous No growth after 48 hours. 02/24/25 15:24 Blood Culture - Preliminary Blood - Venous No growth after 48 hours. Discharge Plan Discharge Anticipated Discharge Date/Time: 02/28/25 11:42 Patient Disposition: Home Health Service Discharge Diagnosis: Cat bite cellulitis Referrals: [facility] [Outside] - 3-5 Days ([facility] will call you to schedule nursing visits) Saundra Toure PA-C [Physician Community Outreach Manager] - 1 Week (cat bite cellulitis) Juice Lai MD [Primary Care Provider] - 1 Week Discharge Medications: Continued metoprolol succinate 100 mg tablet extended release 24 hr 100 mg PO DAILY amoxicillin-pot clavulanate 875-125 mg tablet 1 tab PO BID 10 Days Qty: 20 0RF Rx Instructions: END DATE: 03/04/25 Eliquis 5 mg tablet 5 mg PO BID atorvastatin 10 mg tablet 10 mg PO BEDTIME furosemide 20 mg tablet 20 mg PO DAILY PreserVision AREDS 14320-226-200 [id number] capsule 1 cap PO BID Discharge Orders: Discharge Order (Routine); Ordered 02/28/25 Ordered By: Alfonso Noyola Diet: Advance to usual diet Activity on Discharge: As tolerated Stand Alone Forms: Patient Portal Discharge page Print Language: Pashto Activity Restrictions/Additional Instructions: Topical Wound Care Recommendations: Left Hand - Elevate hand above heart level throughout the day - consider use of pillows. Cleanse with saline moist gauze, pat dry. Apply skin prep to skin around wound. Cover open wound with small piece of xeroform, dry gauze and tape. Change every day or every other day. Practice gentle range of motions exercises a few times a day. Care Plan Goals: recovery from cat bite cellulitis Health Concerns: cat bite cellulitis Plan of Treatment: take Augmentin previously prescribed continue doing range motions with your hand follow up with your doctor in week, call for appointment you will have Assessment: see above
--- NOTE | 2025-02-28 11:38 | HO.WOUND ---
Wound Consult: Initial 79yr old?male admitted to [facility] on 02/24/25- See progress notes and H&P for detailed history.? Wound consult placed for Left hand cat bite site.? Patient agreeable to assessment and photo documentation.? Chart review reveals has been seen by ortho team and no topical interventions ordered and no surgical interventions needed. They recommend continued Gently Hand and finger ROM exercises. Left /hand Etiology: Cat bite site ?Present on Admission Measurements: 1 cm x 0.4cm x 0.1cm Wound Bed: red moist tissue Drainage / Odor: None noted Edges: ? well defined and attached Della wound: mild erythema and swelling - patient reports significant decrease since admission - ? No Induration, Fluctuance noted Pain: pain at site reported Goals of Treatment: ? Moist wound healing with xeroform, limb elevation and finger and hand gentle range of motion exercises. Topical Wound Care Recommendations: Left Hand - Elevate hand above heart level throughout the day - consider use of pillows. Cleanse with saline moist gauze, pat dry. Apply skin prep to skin around wound. Cover open wound with small piece of xeroform, dry gauze and tape. Change every day or every other day. Practice gentle range of motions exercises a few times a day. Re-consult wound care Nurse for wound deterioration or wound changes.
--- NOTE | 2025-02-28 11:42 | MHC.CM.PN ---
Per MD, medically cleared for dc home w/ services. Patient prefers [facility], but they are unable to accept. [facility] has accepted and patient agrees to plan. Per forestry scientist, daily dressing changes but patient is able to manage on days [facility] is not available. [facility] delivered. Discussed transport w/ patient. Car in C lot and he prefers to drive himself home. CM expressed concern re: swelling to L hand interfering w/ driving. Offered lyft or shuttle ride home. Patient adamantly declined. RN aware.
--- NOTE | 2025-02-28 11:46 | W.MHC.F2F ---
Service Date Service Date: 02/28/25 Encounter Date of encounter: 02/28/25 Reasons for Services Signs and symptoms assessed: Swelling and decrease range of motion in the hand Reason for care home: wound care Homebound: Leaving the home is medically contraindicated at this time without the asist of a device and/or another person due th the listed conditions above and below. Reason homebound: other (Limitted use of hand due to cellulitis from cat bite, swelling and decrease range of Motion and nto able to drive) Certification: Based on the above findings, I certify that this patient is confined to the home and needs intermittent care home care, physical therapy and/or speech therapy, or continues to need occupational therapy. The patient is under my care, and I have initiated the establishment of the plan of care. The patient will be followed by a physician who will periodically review the plan of care. Time Spent With Patient Time: Total time managing care of this patient today ____ minutes.
== END 2025-02-28 14:21 | disposition home health service (06) | DRG 603 ==
LOC: HO.ED 16:15 → HO.EDOVER 16:35 → HO.S3 17:15
PROVIDERS: Nurse Practitioner Family; Physician Assistant Medical; Admitting Provider Student in an Organized Health Care Education/Training Program; Emergency Provider Emergency Medicine Emergency Medical Services; PCP Internal Medicine; Visit Provider Internal Medicine
DX: L03.114 Cellulitis of left upper limb (principal); I42.9 Cardiomyopathy, unspecified; S61.452A Open bite of left hand, initial encounter; W55.01XA Bitten by cat, initial encounter; I10 Essential (primary) hypertension; I48.0 Paroxysmal atrial fibrillation; I49.5 Sick sinus syndrome; F39 Unspecified mood [affective] disorder; D64.9 Anemia, unspecified; I25.10 Atherosclerotic heart disease of native coronary artery without angina pectoris; Z95.1 Presence of aortocoronary bypass graft; Z95.0 Presence of cardiac pacemaker; Z95.2 Presence of prosthetic heart valve; Z79.01 Long term (current) use of anticoagulants; Z79.899 Other long term (current) drug therapy
CPT/HCPCS: 36415; 73120; 80048; 83605; 85025; 85027; 85652; 86140; 87040; 96365; 99284; 99285; J0295

== ENCOUNTER → 2025-02-24 16:26 | Outpatient (BNV) | payer MEDICARE, SELFPAY | PROVIDERS: Admitting Provider Student in an Organized Health Care Education/Training Program; Emergency Provider Emergency Medicine Emergency Medical Services; PCP Internal Medicine; Visit Provider Physician Assistant | DX: L03.114 Cellulitis of left upper limb (principal); W55.01XA Bitten by cat, initial encounter | CPT/HCPCS: 99222 ==

== ENCOUNTER → 2025-02-24 16:26 | Outpatient (BNV) | payer MEDICARE, SELFPAY | PROVIDERS: Admitting Provider Student in an Organized Health Care Education/Training Program; Emergency Provider Emergency Medicine Emergency Medical Services; PCP Internal Medicine; Visit Provider Student in an Organized Health Care Education/Training Program | DX: L03.114 Cellulitis of left upper limb (principal); W55.01XA Bitten by cat, initial encounter | CPT/HCPCS: 99223; 99232; 99239; G0180 ==

== ENCOUNTER 2025-03-09 14:10 | Outpatient (AMB) | payer MEDICARE, SELFPAY ==
--- OUTSIDE RECORDS SUMMARY | 2025-03-09 14:13 | XMS_ITS ---
Author Organization [facility] Address [address] [place] [id number] Care Team Providers Care Cattle Alley Worker Name Role Phone Ming BRICENO, Juice Primary Care Provider Maria Teresa Kasper [phone] Encounters Encounter Location Date Provider Diagnosis [facility] [address] [place] [address] 08/17/2024 Maria Teresa Hernandez Plan Of Treatment No Information Progress Notes * Boogie NELSON FDOB:[birth year] (79 yo M)Acc No.[id number]:08/17/2024 Progress Notes Patient:?LESLIE Boogie Brynn Provider:?Maria Teresa Hernandez DPM :1945???Age:78 Y???Sex:Male Delmar e:08/17/2024 Address:[address] [place] [address] [place] [id number] Pcp:Juice Lai MD Subjective: * Chief Complaints: * ??? * Medical History:? Objective: * Vitals:? Assessment: Plan: * Treatment: * Images: * The named appointment provid er may or may not be the originator of this progress note, and it is not deemed complete until electronically signed by the appointment provider. Sign off status: Pending * Provider:?Maria Teresa Hernandez DPM Date:?2023 Generated for Randolph salgado/Manuel/eTransmitting on:?03/09/2025 02:12 PM EDT
--- NOTE | 2025-03-09 14:29 | A.OFFVIS_ITS ---
Vital Signs 03/09/25 14:32 Height 6 ft Weight 165 lb BMI 22.4 Intake Visit Reasons: ED f/u-LT hand cellulitis Intake Note: Boogie 79 yr old right hand dominant male presnets today for his [facility] ED follow up visit. Patient states that his neighbor's cat bit him on the back of his left hand 02/22/25.. He quickly began developing pain and redness. He was given a dose of IV antibiotics and discharged home on Augmentin which he stated today is his last day of taking ABX. He has taken two doses of Augmentin. He presents today stating that the redness and swelling is now worsening. He is not able to bend his index and middle finger. Admits to increased pain with any movement of the left wrist. Denies any drainage from the puncture wounds. He feels as though the infection is worsening. Denies numbness or tingling. Allergies Iodinated Contrast Media [IV Dye, Iodine Containing Contrast ] Allergy (Severe, Verified 03/09/25 14:32) Shortness of Breath iodine [Iodine] Allergy (Severe, Verified 03/09/25 14:32) SOB HPI HPI ED f/u-LT hand cellulitis: Details: Boogie 79 yr old right hand dominant male presnets today for his [facility] ED follow up visit. Patient states that his neighbor's cat bit him on the back of his left hand 02/22/25.. He quickly began developing pain and redness. He was given a dose of IV antibiotics and discharged home on Augmentin which he stated today is his last day of taking ABX. He has taken two doses of Augmentin. He presents today stating that the redness and swelling is now improved significantly. He is not able to bend his index and middle finger fully, but range of motion has improved. Still experiences some pain with movement of the left wrist t. Denies any drainage from the puncture wounds. He feels as though the infection is improving. Denies numbness or tingling. [facility] Medical History Leg edema Afib High cholesterol FH: mitral valve repair Surgical History History of appendectomy Aortic valve replaced Social History (Updated 03/09/25 @ 14:34 by PAULO Gar) Household Members: None Housing: House Do you presently have visiting nurse or other home services: No Alcohol intake: former Patient Tobacco Use Status: Never used Tobacco Second Hand Smoke Exposure: No service: No Current occupational status: retired Current occupation: rt hand Review of Systems Const All systems reviewed & are unremarkable except as noted in HPI and below Physical Exam Vital Signs: BMI result Body Mass Index 22.4 Extrem Other: Patient is alert, oriented, and in no acute distress. Neuro: Normal sensation of the tips of all digits of the left hand at this time Vascular: Cap refill brisk Pain: No tenderness to palpation about the left hand or wrist Minimal discomfort with range of motion of the wrist Significant pain with attempted full extension of the left index and middle fingers No tenderness to palpation about the volar aspect of the left index or middle fingers ROM: Patient is unable to fully extend the left index or middle fingers, however he is able to make a closed fist with all digits of the left hand Skin: Small laceration noted on the dorsal aspect of the left hand at the level of the mid shaft of the 3rd metacarpal General: Mild diffuse edema noted of the dorsal left hand No ecchymosis, erythema, or evidence of infection. Psych: Appears grossly normal Affect normal Attitude cooperative Assessment & Plan Assessment & Plan (1) Cellulitis of left hand: Code(s): L03.114 - Cellulitis of left upper limb Category: Medical (2) Cat bite: Code(s): W55.01XA - Bitten by cat, initial encounter Category: Medical (3) Stiffness of left hand joint: Code(s): M25.642 - Stiffness of left hand, not elsewhere classified Category: Medical Plan 1. Status post cat bite of the left hand 2. Stiffness of the left hand Patient appears to be recovering well from his injury Patient is educated about the typical recovery course Antibiotics refilled at this time Patient is also referred to occupational therapy for range of motion of the left hand Patient is amenable to this plan Patient is educated on daily dressing changes while he is out and about, can leave the wound open to air with antibiotic ointment while at home Patient is amenable to this plan Follow-up in 1 week for wound check, sooner with any concerns Orders: Orders OT Evaluation and Treatment Today L03.114 - Cellulitis of left upper limb, M25.642 - Stiffness of left hand, not elsewhere classified, W55.01XA - Bitten by cat, initial encounter Medications: New amoxicillin-pot clavulanate 875-125 mg 1 tab PO BID 10 days 20 tabs 0RF Coding Level of Care Code New Pt Level 3 (56443) Diagnoses Cellulitis of left hand L03.114 Cat bite W55.01XA Stiffness of left hand joint M25.642
[2025-03-09 14:32] VITALS: BMI 22.4
== END 2025-03-09 14:53 | disposition home or self-care (01) ==
LOC: HO.HOS 14:11
PROVIDERS: PCP Internal Medicine
DX: L03.114 Cellulitis of left upper limb (principal); W55.01XA Bitten by cat, initial encounter; M25.642 Stiffness of left hand, not elsewhere classified
CPT/HCPCS: 99203

== ENCOUNTER → 2025-03-09 14:10 | Outpatient (BNVA) | payer MEDICARE, SELFPAY | PROVIDERS: PCP Internal Medicine | DX: L03.114 Cellulitis of left upper limb (principal); M25.642 Stiffness of left hand, not elsewhere classified; W55.01XA Bitten by cat, initial encounter | CPT/HCPCS: 99202 ==

== ENCOUNTER 2025-03-16 09:30 | Outpatient (AMB) | payer MEDICARE, SELFPAY ==
[2025-03-16 09:33] VITALS: BMI 22.4
--- NOTE | 2025-03-16 09:33 | MHC.OFFVIS ---
Vital Signs 03/16/25 09:33 Height 6 ft Weight 165 lb BMI 22.4 Intake Visit Reasons: f/u-LT hand cellulitis Intake Note: Boogie is a 79 year old right hand dominant male who presents today for a left hand cellulitis wound check s/p cat bite DOI: 02/22/25. At his last visit antibiotics were refilled. Patient was advised to change dressings daily when out and leave open to air with antibiotic ointment when at home. Patient was also referred to occupational therapy. Today, patient reports about 3 days ago, after he was using a machine leather trimmer, there was some redness and blisters around the wound. Patient states he has started occupational therapy and finds it helpful. Patient continues taking antibiotics as prescribed. Allergies Iodinated Contrast Media [IV Dye, Iodine Containing Contrast ] Allergy (Severe, Verified 03/16/25 09:45) Shortness of Breath iodine [Iodine] Allergy (Severe, Verified 03/16/25 09:45) SOB HPI HPI f/u-LT hand cellulitis: Details: Boogie is a 79 year old right hand dominant male who presents today for a left hand cellulitis wound check s/p cat bite DOI: 02/22/25. At his last visit antibiotics were refilled. Patient was advised to change dressings daily when out and leave open to air with antibiotic ointment when at home. Patient was also referred to occupational therapy. Today, patient reports about 3 days ago, after he was using a machine leather trimmer, there was some redness and blisters around the wound. Patient reports that he has had a similar issue previously with a rash of the same appearance for which he was treated by dermatology. Patient states he has started occupational therapy and finds it helpful. Patient continues taking antibiotics as prescribed. [facility] Medical History Leg edema Afib High cholesterol FH: mitral valve repair Surgical History History of appendectomy Aortic valve replaced Social History (Updated 03/09/25 @ 14:34 by PAULO Gar) Household Members: None Housing: House Do you presently have visiting nurse or other home services: No Alcohol intake: former Patient Tobacco Use Status: Never used Tobacco Second Hand Smoke Exposure: No service: No Current occupational status: retired Current occupation: rt hand Review of Systems Const All systems reviewed & are unremarkable except as noted in HPI and below Physical Exam Vital Signs: BMI result Body Mass Index 22.4 Extrem Other: Patient is alert, oriented, and in no acute distress. Neuro: Normal sensation of the tips of all digits of the left hand at this time Vascular: Cap refill brisk Pain: No tenderness to palpation about the left hand or wrist No discomfort with range of motion of the wrist No pain with attempted full extension of the left index and middle fingers No tenderness to palpation about the volar aspect of the left index or middle fingers ROM: Patient is able to make a closed fist and extend all digits of the left hand fully Skin: Small laceration noted on the dorsal aspect of the left hand at the level of the mid shaft of the 3rd metacarpal has healed well Howeverm there is General: Mild diffuse edema noted of the dorsal left hand No ecchymosis, erythema, or evidence of infection. Psych: Appears grossly normal Affect normal Attitude cooperative Assessment & Plan Assessment & Plan (1) Cat bite: Code(s): W55.01XA - Bitten by cat, initial encounter Category: Medical (2) Stiffness of left hand joint: Code(s): M25.642 - Stiffness of left hand, not elsewhere classified Category: Medical (3) Rash of hand: Code(s): R21 - Rash and other nonspecific skin eruption Category: Medical Plan 1. Status post cat bite of the left hand 2. Stiffness of the left hand 3. Rash of L hand Patient appears to be recovering well from his injury Patient is educated about the typical recovery course Antibiotics do not need to be refilled at this time Patient was referred to occupational therapy for range of motion of the left hand at previous visit, reports this is going well Referred to dermatology for treatment of rash Patient is amenable to this plan Patient is amenable to this plan Follow-up as needed with any acute concerns. Coding Level of Care Code Est Pt Level 3 (16621) Diagnoses Cat bite W55.01XA Stiffness of left hand joint M25.642 Rash of hand R21
--- OUTSIDE RECORDS SUMMARY | 2025-03-16 10:06 | XMS_ITS | Encounter Summary ---
Author Organization [facility] Address [address] [place] [address] Care Team Providers Care Irish Moss Bleacher Name Role Phone Stef Kaufman MD Primary Care Provider [phone] Mario Alberto Joseph MD Unavailable [phone] Shilpa Thompson PA-C Unavailable Unavailab [facility], Pcp Primary Care Provider Unavailabl e Encounter Details Date Type Department Care Team Description 01/21/2011 Tubing Mill Setter Report Medical Records [address] [place] [address] Lamont Duggan MD Social History Tobacco Use Types Packs/Day [...] on filedocumented in this encounter Care Teams Irish Moss Bleacher Relationship Specialty Start Date End Date Stef Kaufman MD [address] [place] [id number] PCP - General 12/05/09 02/09/23 [facility], [facility] [address] [place] [address] PCP - General Internal Medicine 02/10/23 Mario Alberto Joseph MD [address] [facility] [address] [place] [address] Specialist Cardiovascular Disease 03/28/21 Shilpa Thompson PA-C [facility] [address] [place] [address] Cardiology 03/28/21 documented as of this encounter
== END 2025-03-16 10:12 | disposition home or self-care (01) ==
LOC: HO.HOS 09:31
PROVIDERS: PCP Internal Medicine
DX: L03.114 Cellulitis of left upper limb (principal); M25.642 Stiffness of left hand, not elsewhere classified; W55.01XA Bitten by cat, initial encounter; R21 Rash and other nonspecific skin eruption
CPT/HCPCS: 99213

== ENCOUNTER → 2025-03-16 09:30 | Outpatient (BNVA) | payer MEDICARE, SELFPAY | PROVIDERS: PCP Internal Medicine | DX: L03.114 Cellulitis of left upper limb (principal); M25.642 Stiffness of left hand, not elsewhere classified; R21 Rash and other nonspecific skin eruption; S60.572D Other superficial bite of hand of left hand, subsequent encounter; W55.01XD Bitten by cat, subsequent encounter | CPT/HCPCS: 99212 ==

== ENCOUNTER 2025-03-22 10:55 | Outpatient (AMB) | payer MEDICARE, SELFPAY ==
[2025-03-22 11:00] VITALS: BMI 19.1
--- NOTE | 2025-03-22 11:00 | MHC.OFFVIS ---
Vital Signs 03/22/25 11:00 Height 6 ft 6 in Weight 165 lb BMI 19.1 Intake Visit Reasons: OV-LT hand cellulitis-follow up Intake Note: Boogie is a 79 year old male who presents today for a follow up of the left hand cellulites. Patient is currently seeing a photoengraving retoucher that is going well.Patient states that he would like to discuss his fear of having an infection in the hand. Patient reports that hand is stil tender to the touch. Allergies Iodinated Contrast Media [IV Dye, Iodine Containing Contrast ] Allergy (Severe, Verified 03/22/25 11:05) Shortness of Breath iodine [Iodine] Allergy (Severe, Verified 03/22/25 11:05) SOB HPI HPI OV-LT hand cellulitis-follow up: Details: Boogie is a 79 year old male who presents today for a follow up of the left hand rash. Patient is currently seeing a photoengraving retoucher that is going well.Patient states that he would like to discuss his fear of having an infection in the hand. Patient reports that hand is stil tender to the touch, but also reports that when the area is touched it does not hurt. Denies numbness or tingling. No other acute complaints or concerns at this time. [facility] Medical History Leg edema Afib High cholesterol FH: mitral valve repair Surgical History History of appendectomy Aortic valve replaced Social History (Updated 03/09/25 @ 14:34 by PAULO Gar) Household Members: None Housing: House Do you presently have visiting nurse or other home services: No Alcohol intake: former Patient Tobacco Use Status: Never used Tobacco Second Hand Smoke Exposure: No service: No Current occupational status: retired Current occupation: rt hand Review of Systems Const All systems reviewed & are unremarkable except as noted in HPI and below Physical Exam Vital Signs: BMI result Body Mass Index 19.1 Extrem Other: Patient is alert, oriented, and in no acute distress. Neuro: Normal sensation of the tips of all digits of the left hand at this time Vascular: Cap refill brisk Pain: No tenderness to palpation about the left hand or wrist No discomfort with range of motion of the wrist No pain with attempted full extension of the left index and middle fingers No tenderness to palpation about the volar aspect of the left index or middle fingers ROM: Patient is able to make a closed fist and extend all digits of the left hand fully Skin: Small laceration noted on the dorsal aspect of the left hand at the level of the mid shaft of the 3rd metacarpal has healed well Rash has improved significantly from previous visit General: Edema improved from previous visit No ecchymosis, erythema, or evidence of infection. Psych: Appears grossly normal Affect normal Attitude cooperative Assessment & Plan Assessment & Plan (1) Cat bite: Code(s): W55.01XA - Bitten by cat, initial encounter Category: Medical (2) Stiffness of left hand joint: Code(s): M25.642 - Stiffness of left hand, not elsewhere classified Category: Medical (3) Rash of hand: Code(s): R21 - Rash and other nonspecific skin eruption Category: Medical Plan 1. Status post cat bite of the left hand 2. Stiffness of the left hand 3. Rash of L hand Patient appears to be recovering well from his injury Patient is educated about the typical recovery course Antibiotics do not need to be refilled at this time Patient was referred to occupational therapy for range of motion of the left hand at previous visit, reports this is going well Referred to dermatology for treatment of rash Patient is amenable to this plan Patient is amenable to this plan Follow-up as needed with any acute concerns. Coding Level of Care Code Est Pt Level 3 (46874) Diagnoses Cat bite W55.01XA Stiffness of left hand joint M25.642 Rash of hand R21
== END 2025-03-22 11:10 | disposition home or self-care (01) ==
LOC: HO.HOS 10:55
PROVIDERS: PCP Internal Medicine
DX: L03.114 Cellulitis of left upper limb (principal); W55.01XA Bitten by cat, initial encounter; M25.642 Stiffness of left hand, not elsewhere classified; R21 Rash and other nonspecific skin eruption
CPT/HCPCS: 99213

== ENCOUNTER → 2025-03-22 10:55 | Outpatient (BNVA) | payer MEDICARE, SELFPAY | PROVIDERS: PCP Internal Medicine | DX: M25.642 Stiffness of left hand, not elsewhere classified (principal); M25.462 Effusion, left knee; R21 Rash and other nonspecific skin eruption | CPT/HCPCS: 99212 ==

== ENCOUNTER 2025-03-26 10:45 | Outpatient (RCR) | payer MEDICARE, SELFPAY ==
--- NOTE | 2025-03-16 16:03 | MHC.OT.EP ---
[address] [phone] Occupational Therapy Plan of Care Patient Name: Boogie Pike Date of Evaluation: 03/14/25 Diagnosis: L cat bite / infection (on antibiotic) Pain Location: Pain Score: Pain Scale Used: Aggravating Factors: Alleviating Factors: Assessment: Pt is an 79 yr old R hand dominant male who was bitten by the neighbors cat and developed an infection and cellulitis of his L hand. Pt reports being here at inpatient at [facility] (saw OT inpatient). He presents today w/ a wound in stage 3 ; closing well (pt is on antibiotics, but has requested to see the MD due to the color of his wound (light pink )) the wound is light pink in color, cool to touch, and no exudate or odor is observed. He has decreased ROM (guarding) And strength of his L hand. Pt would benefit from skilled OT therapy to address these deficits and increase the functional use of his L hand. Frequency and Duration: The patient will be seen Short Term Goals: Pt will be complaint w/ his HEP Pt will have 50 pain free ext of his L wrist Pt will have 70 pain free wrist flexion of his L wrist Garment Liner Goals: Pt will report 1/10 pain w/ activity Pt will have 40 lbs of L hand barrel scraper Treatment Plan: Therapeutic Exercise Therapeutic Activity Home Exercise Program Neuro Re-ed Patient Education Desensitization/Sensory Re-ed Edema Control ADL Training Ultrasound NMES Iontophoresis Fluidotherapy MHP Cold Packs Joint Mobilization Soft Tissue Mobilization Kinesiotaping Other (see comments) Electronically Signed By: Elda Barnett OTR/L Please Sign and return to therapist. Thank you once again for your referral.
== END 2025-05-01 16:13 | disposition home or self-care (01) ==
LOC: HO.OT 10:45
PROVIDERS: PCP Internal Medicine
DX: S40.872D Other superficial bite of left upper arm, subsequent encounter (principal); W55.01XD Bitten by cat, subsequent encounter; L03.114 Cellulitis of left upper limb; M25.642 Stiffness of left hand, not elsewhere classified
CPT/HCPCS: 97110; 97140; 97166; 97535

== ENCOUNTER 2025-10-10 09:38 | Outpatient (AMB) | payer MEDICARE, SELFPAY ==
--- OUTSIDE RECORDS SUMMARY | 2024-08-17 10:30 | XMS_ITS ---
Author Organization [facility] Address [address] [place] [id number] Care Team Providers Care Advanced Manager Name Role Phone Ming BRICENO, Juice Primary Care Provider Maria Teresa Kasper [phone] Encounters Encounter Location Date Provider Diagnosis [facility] [address] [place] [address] 08/17/2024 Maria Teresa Hernandez Plan Of Treatment No Information Progress Notes * Boogie NELSON FDOB:[birth year] (79 yo M)Acc No.[id number]:08/17/2024 Progress Notes Patient: Boogie RODGERS Provider: Xavier Hernandez DPM :1945 A ge:78 Y S ex:Male Date:08/17/2024 Address:[address] [place] [address] [id number] Pcp:Juice Lai MD Subjective: * Chief Complaints: * * Medical History: Objective: * Vitals: Assessment: Plan: * Treatment: * Images: * The named appointment provid er may or may not be the originator of this progress note, and it is not deemed complete until electronically signed by the appointment provider. Sign off status: Pending * Provider: Xavier Hernandez DPM Date: 10/17/2023 Generated for Randolph saglado/Manuel/eTransmitting on: 10:08 AM EST
--- OUTSIDE RECORDS SUMMARY | 2024-09-21 05:30 | XMS_ITS ---
Author Organization [facility] Address [address] [place] [id number] Care Team Providers Care Detention Officer Name Role Phone Ming BRICENO, Juice Primary Care Provider UnavailMaria Teresa Sherman [phone] REASON FOR VISIT Seen Sooner Encounters Encounter Location Date Provider Diagnosis [facility] [address] [place] [address] 09/21/2024 Maria Teresa Hernandez Plan Of Treatment No Information Progress Notes * Boogie NELSON FDOB:[birth year] (79 yo M)Acc No.[id number]:09/21/2024 Progress Notes Patient: Nader RODGERSer Brynn Provider: Xavier Hernandez DPM :1945 A ge:78 Y S ex:Male Date:09/21/2024 Address:[address] [place] [address] Alan keen [id number] Pcp:Juice Lai MD Subjective: * Chief Complaints: * 1 . Seen Sooner. * Medical History: Objective: * Vitals: Assessment: Plan: * Treatment: * Images: * The named appointment provid er may or may not be the originator of this progress note, and it is not deemed complete until electronically signed by the appointment provider. Sign off status: Pending * Provider: Xavier Hernandez DPM Date: 11/22/2023 Generated for Hernani naomi/Manuel/eTransmitting on: 10:09 AM EST
[2025-10-10 09:39] VITALS: BP 108/44; PULSE 79; O2SAT 98; BMI 18.9
--- NOTE | 2025-10-10 09:39 | MHC.OFFWIV ---
Intake Vital Signs 10/10/25 09:39 Height 6 ft 6 in Weight 163 lb 8 oz BMI 18.9 BP 108/44 L Blood Pressure Location Lt brachial Position Sitting Pulse 79 Pulse Source Pulse Oximeter Pulse Oximetry (%) 98 Oxygen Delivery Method Room Air Intake Visit Reasons: EP-chest issue Intake Note: Patient presents c/o unusual feeling in chest since yesterday. Patient Tobacco Use Status: Never used Tobacco Allergies Iodinated Contrast Media (IV Dye, Iodine Containing Contrast ) Allergy (Severe, Verified 10/10/25 09:46) Shortness of Breath iodine (Iodine) Allergy (Severe, Verified 10/10/25 09:46) SOB HPI EP-chest issue HPI Details 79 year old male patient presents to the [place] clinic with report of unusual sensation in chest which started yesterday morning. He cannot quite describe this sensation, however reports usually you aren't aware of your heart beating, but I am having episodes where I am aware of it . He denies any chest pain, palpitations, weakness, shortness of breath, recent illnesses, dizziness, nausea, GI symptoms. Denies any preceding events to this sensation - states he was just in his home. No fevers. Denies any other symptoms whatsoever. History of a-fib, maintained on eliquis. [facility] Medical History Leg edema Afib High cholesterol FH: mitral valve repair Surgical History History of appendectomy Aortic valve replaced Social History Household Members: None Housing: House Do you presently have visiting nurse or other home services: No Alcohol intake: former Patient Tobacco Use Status: Never used Tobacco Second Hand Smoke Exposure: No service: No Current occupational status: retired Current occupation: rt hand Review of Systems Const All systems reviewed & are unremarkable except as noted in HPI and below Physical Exam Const General: cooperative, healthy appearing and no acute distress Orientation/consciousness: patient oriented x3 HEENT Head: Yes normal to inspection Ears: hearing grossly normal bilaterally General nose exam: Normal external nose present Face and sinus: Yes normal facial exam Throat: Yes posterior oropharynx normal Neck Neck: Yes no lymphadenopathy and Yes no JVD Chest Chest palpation & inspection: normal inspection of the chest and normal palpation of entire chest wall Resp Effort & Inspection: normal respiratory effort and able to speak in complete sentences Auscultation: clear to auscultation bilaterally Cardio Palpation: normal PMI Rate: regular rate Rhythm: regular rhythm Heart sounds: S1 normal heart sound present and S2 normal heart sound present Peripheral pulses: Peripheral pulses 2+ throughout Skin General skin exam: no rashes or lesions noted Neuro General: patient oriented x3 and gait normal Extrem General: Yes capillary refill normal and Yes no clubbing, cyanosis or edema Psych Appearance: grossly normal Mental Status: mental status grossly normal Speech and movement: Normal speech and movement present Assessment & Plan Assessment & Plan (1) Chest wall symptom: Code(s): R09.89 - Other specified symptoms and signs involving the circulatory and respiratory systems Plan Assessment is unremarkable. VS are stable. EKG indicates SR 75. Patient denies any discomfort at this time. We discussed that from this standpoint, it is difficult to determine what is causing this intermittent sensation or if there is cardiac involvement. I reviewed with patient that evaluation in the ED would further investigate his symptoms. He does not wish to go for eval in the ED at this time and would like to see if sensation recurs at home, and states that if so he will go to ED. We discussed that should this recur or if he has any associated symptoms such as pain, pressure, palpitations, dizziness, weakness, shortness of breath etc. he should go promptly to ED for evaluation. Patient verbalizes understanding and agrees to plan. Orders: Orders AMB EKG-In Office Today R09.89 - Other specified symptoms and signs involving the circulatory and respiratory systems Coding Level of Care Code Est Pt Level 4 (49814) Diagnoses Chest wall symptom R09.89
--- OUTSIDE RECORDS SUMMARY | 2025-10-10 10:09 | XMS_ITS | Patient Health Record ---
Author Organization [facility] Lizbeth santiago [place] Address [address] [facility] [place] [address] Care Team Providers Care Photographer Helper Name Role Phone Juice Lai MD Primary Care Provider UnavailMaria Teresa Sherman Unavailable [phone] Saloni Miles Unavailable [phone] Allergies Allergen (clinical drug ingredient) Drug/Non Drug Allergy documented on EMR Reaction Allergy Type Onset Date Status Iodine trouble breathing Drug Allergy Active Reason For Referral No Information Medications Medication SIG (Take, Route, Frequency, Duration) Notes Start Date End Date Status Amoxicillin 500 MG 4 Orally Once a day; Duration: 1 dose 09/19/2011 Not-Taking Aspirin 325 MG 1 tablet Orally Once a day; Duration: 30 day(s) Not-Taking Ammonium Lactate 12 % 1 application Externally to affected areas of skin to feet except for between the toes Twice a day; Duration: 30 days Not-Taking Doxycycline Monohydrate 100 MG 1 capsule Orally Once a day; Duration: 14 days 08/03/2024 Not-Marco wasserman Eliquis 5 MG as directed Orally Active Doxycycline Monohydrate 100 MG Oral; Duration: 14 Days Not- Taking Atorvastatin Calcium 10 MG 1 tablet Orally Once a day Active Furosemide 20 MG 1 tablet Orally Once a day Active Multivitamins Not-Clint elizabeth Metoprolol Succinate ER 50 MG 1 tablet Orally Once a day Active predniSONE 5 MG 1 tablet with food o r milk Orally Once a day; Duration: 30 day(s) Not-Taking Flonase 50 MCG/ACT 2 sprays Nasally Onc e a day; Duration: 30 day(s) Not-Taking Lisinopril Not-Marco wasserman Social History Tobacco Use: Social History Observation Description Date Details (start date - stop date) Never Smoker NA - NA Tobacco use other than smoking: Question Answer Notes Are you an other tobacco user? No Tobacco Control (Standard) Question Answer Notes Tobacco use: Nonsmoker Additional Findings: Tobacco non-user Current no nsmoker AUDIT-C (Standard) Question Answer Notes Did you have a drink containing alcohol in the p ast year? No Points 0 Interpretation Negative Problems Problem Type SNOMED Code ICD Code Onset Dates Problem Status W/U Status Risk Notes Problem Plantar wart (95342235) Plantar wart (B07.0) Active confirmed Problem Bilateral atherosclerosis of arteries of lower limbs (disorder) (46995699841312957 ) Atherosclerosis of tanana artery of both lower extremities, with unspecified presence of clinical manifestation (I70.203) Active confirmed Q7(A), Q8(2B), Q9(1B,2 C) Problem Ulcer of toe of right foot (disorder) (37365199333104293 ) Skin ulcer of toe of right foot, limited to breakdown of skin (L97.511) Active confirmed Problem Ulcer of toe of left foot (disorder) (88929539877911339 ) Skin ulcer of toe of left foot, limited to breakdown of skin (L97.521) Active confirmed Vital Signs Blood pressure diastolic 65 mm Hg 03/14/2025 Height 6ft 1in in 03/14/2025 Blood pressure systolic 128 mm Hg 03/14/2025 Weight 165 lbs 03/14/2025 BMI 21.77 kg/m2 03/14/2025 Procedures Procedure Date Ordered Date Performed Result Body Sit e 84962-NBTNIKS NAIL, 6 OR MORE 10/19/2024 N/A 69599-Pgoqhsxl Plate 10/19/2024 N/A 24940-Bcnv Destruction, 1-14 03/14/2025 N/A Encounters Encounter Location Date Provider Diagnosis [facility] [address] [address] 10/19/2024 Maria Teresa Black Onychomycosis B35.1 ; Ingrown nail L60.0 ; Pain in right toe(s) M79.674 ; Pain in left toe(s) M79.675 and Atherosclerosis of tanana artery of both lower extremities, with unspecified presence of clinical manifestation I70.[address] [facility] [address] 03/14/2025 Saloni Miles Left foot pain M79.672 ; Plantar wart B07.0 ; Pain in unspecified toe(s) M79.676 ; Onychomycosis B35.1 ; Pain in right toe(s) M79.674 ; Pain in left toe(s) M79.675 and Atherosclerosis of tanana artery of both lower extremities, with unspecified presence of clinical manifestation I70.203 [facility] [place] [address] [place] [address] 10/19/2024 Maria Teresa Hernandez [facility] [place] [address] [place] [address] 03/13/2025 Maria Teresa Hernandez Assessments Encounter Date Diagnosis (ICD Code) Assessment Notes Treatment Notes Treatment Clinical Notes Section Notes 10/19/2024 Ingrown nail (ICD-10 - L60.0) 10/19/2024 Onychomycosis (ICD-10 - B35.1) 03/14/2025 Left foot pain (ICD-10 - M79.672) 03/14/2025 Plantar wart (ICD-10 - B07.0) 03/14/2025 Pain in unspecified toe(s) (ICD-10 - M79.676) 10/19/2024 Pain in right toe(s) (ICD-10 - M79.674) 10/19/2024 Pain in left toe(s) (ICD-10 - M79.675) 03/14/2025 Onychomycosis (ICD-10 - B35.1) 03/14/2025 Pain in right toe(s) (ICD-10 - M79.674) 10/19/2024 Atherosclerosis of tanana artery of both lower extremities, with unspecified presence of clinical manifestation (ICD-10 - I70.203) Q7(A), Q8(2B), Q9(1B,2C) 03/14/2025 Pain in left toe(s) (ICD-10 - M79.675) 03/14/2025 Atherosclerosis of tanana artery of both lower extremities, with unspecified presence of clinical manifestation (ICD-10 - I70.203) Q7(A), Q8(2B), Q9(1B,2C) Plan Of Treatment Pending Test Test Name Order Date [id number] NAIL, 6 OR MORE 08/03/2024 54513-UVDHNUK NAIL, 6 OR MORE 10/19/2024 11712-Vdbc Destruction, 1-14 03/14/2025 61873-Cadk Destruction, 1-14 07/15/2011 72044-Eoywctdw Plate 10/19/2024 65011- Debride <25 sq cm 08/17/2024 28991 I&D ABSCESS- SIMPLE,SINGLE 024 42100-NAKF SKIN LESIONS, OVER 4 08/03/20 Insurance Providers Payer Name Payer Address Payer Phone Subscriber Number Group Number Insured Name Patient Relationship to Insured Coverage Start Date Coverage End Date [employer] [place] [employer]age [address] [facility] [place] [address] [phone] [id number] Boogie Rodriguez Self - patient is the insured 5 Medical (General) History Medical History History ICD Code neuropathy macular degeneration mumps measles chicken pox back, hip, knee pain Arthritis Cataracts Heart disease Poor circulation Replacement Heart Valves Transfusions Surgical History Surgery Date(Month/Year) appendectomy 2008
--- OUTSIDE RECORDS SUMMARY | 2025-10-10 10:09 | XMS_ITS ---
[facility] Care Team Organization Name Specialty Phone Email Start Date End Da te [facility] JAY MOYER Primary Care 08/18/2022 4
== END 2025-10-10 10:18 | disposition home or self-care (01) ==
PROVIDERS: PCP Internal Medicine; Visit Provider Nurse Practitioner Family
DX: R09.89 Other specified symptoms and signs involving the circulatory and respiratory systems (principal)

== ENCOUNTER 2025-10-10 15:31 | Emergency (ER) | payer MEDICARE, SELFPAY ==
--- NOTE | ~2025-10-10 | XR_ITS ---
EXAMINATION: XR CHEST CLINICAL INFORMATION: Chest discomfort COMPARISON: 04/12/2022. TECHNIQUE: 2 views of the chest were obtained. FINDINGS: Cardiac monitoring device noted overlying the left heart. There is left-sided dual-lead pacer device in place with leads extending into the right atrium and right ventricle. There is mild cardiac enlargement. There is been prior median sternotomy and CABG, as well as an aortic valve replacement. There is a high riding aortic arch. Mild aortic mural calcifications. Lungs are hyperaerated bilaterally, with flattened hemidiaphragms, suggestive of COPD. There is mild biapical scarring, similar. Lungs are otherwise clear. There is no pneumothorax or pleural effusion. There is no focal osseous or soft tissue abnormality. XR/XR chest 2V IMPRESSION: 1. COPD. No active superimposed disease. Electronically signed by: Gustavo Matt MD 10/10/2025 04:04 PM [facility]
--- NOTE | 2025-10-10 15:35 | ECG_ITS ---
Test Reason : RECHECK Blood Pressure : */* mmHG Vent. Rate : 64 BPM Atrial Rate : 64 BPM P-R Int : 168 ms QRS Dur : 112 ms QT Int : 440 ms P-R-T Axes : 83 -17 62 degrees QTcB Int : 453 ms Sinus rhythm with Fusion complexes Minimal voltage criteria for LVH, may be normal variant ( [place] product ) Septal infarct (cited on or before 11-Oct-2015) Abnormal ECG When compared with ECG of 11-Oct-2015 09:04, Premature ventricular complexes are no longer Present Referred By: Generic ED Physician Electronically Signed By: SIRI BILLY
[2025-10-10 15:45] VITALS: BP 140/60; PULSE 66; RESP 18; TEMP 36.2; O2SAT 96; BMI 22.4
--- NOTE | 2025-10-10 15:45 | ED_ITS ---
HPI - URI/Sore Throat General Chief Complaint: General Medical Stated Complaint: FU from urgent care cardiac check no pain Time Seen by Provider: 10/10/25 17:47 Source: patient, RN notes reviewed and old records reviewed Mode of arrival: ambulatory Limitations: no limitations History of Present Illness ED Provider: Jordyn AVINA Narrative: 79-year-old male past medical history significant for coronary artery disease status post bypass x1 presents for evaluation of a ?feeling in my chest. ? The patient states that he has had a weird sensation in his left chest since yesterday. This sensation is random and occurred initially while he was sleeping. In his not related to exertion. He reports that this is not pain, not pressure, not tingling and not burning. He is unable to qualify the sensation any further He denies any coughing, shortness of breath, palpitations Denies any leg swelling. He reports the sensation he was feeling was far worse yesterday and he had it once or twice this morning but currently does not experience this sensation He follows with cardiology through [facility] Related Data Home Medications ?Medication ?Instructions ?Recorded ?Confirmed apixaban 5 mg tablet (Eliquis) 5 mg PO BID 03/05/22 atorvastatin 10 mg tablet 10 mg PO BEDTIME 03/05/22 furosemide 20 mg tablet 20 mg PO DAILY 03/05/2202/08 vitamins A,C,[id number] 4,296 1 cap PO BID 03/05/22 02/24/25 mcg-226 mg-90 mg capsule (PreserVision AREDS) metoprolol succinate 100 mg 100 mg PO DAILY 02/24/25 0 02/24/25 tablet,extended release 24 hr betamethasone valerate 0.1 % appl topical DAILY topical cream ferrous sulfate 325 mg (65 mg 325 mg PO DAILY 03/09/25 iron) tablet,delayed release Allergies Allergy/AdvReac Type Severity Reaction Status Date / Time Iodinated Contrast Media (IV Allergy Severe Shortness Verified 10/10/25 15:45 Dye, Iodine Containing of Breath Contrast ) iodine (Iodine) Allergy Severe SOB Verified 10/10/25 15:45 Review of Systems 2 Constitutional: Constitutional: Denies body ache(s), Denies chills, Denies fever(s) and Denies headache(s) Eyes: Eyes: Denies blurry vision ENT: Denies dizziness and Denies headache(s) Cardiovascular: Cardiovascular: Reports chest pain and Denies dyspnea on exertion Respiratory: Respiratory: Denies cough and Denies dyspnea on exertion Gastrointestinal: Gastrointestinal: Denies abdominal pain, Denies nausea and Denies vomiting Musculoskeletal: Musculoskeletal: Denies back pain Integumentary/Breasts: Skin/Breast: Denies rash Neurologic: Denies dizziness and Denies headache(s) Psychiatric: Psychiatric: Denies anxiety [facility] Past Medical History Medical History Leg edema Afib High cholesterol FH: mitral valve repair Surgical History History of appendectomy Aortic valve replaced Social History Social History Household Members: None Housing: House Do you presently have visiting nurse or other home services: No Alcohol intake: former Patient Tobacco Use Status: Never used Tobacco Smoked in Last 30 Days: No Second Hand Smoke Exposure: No Use of substances other than those prescribed or required for medical reasons: No Advance Directives: No Advance Directives Information Provided: No service: No Current occupational status: retired Current occupation: rt hand Physical Exam 2 Vital Signs: Vital Signs: Last Vital Signs Temp 97.2 F 10/10/25 17:55 Pulse 66 10/10/25 17:55 Resp 18 10/10/25 17:55 BP 140/60 H 10/10/25 17:55 Pulse Ox 96 10/10/25 17:55 O2 Del Method Room Air 10/10/25 15:45 BMI result Body Mass Index 22.4 Const: General: healthy appearing, comfortable, no acute distress, alert and awake Nutritional Appearance: well nourished Orientation/consciousness: p atient oriented x3 HEENT: Head: Yes normocephalic and Yes atraumatic Eyes: Eyelids: Yes eyelids normal Conjunctivae: conjunctivae normal S clerae: sclerae normal Corneas: corneas normal Pupils: Equal, round and reactive pupils present EOM: EOMs intact bilaterally Neck: Neck: Yes full ROM Resp: Effort & Inspection: normal respiratory effort, able to speak in complete sentences, no audible wheezes and not labored Auscultation: clear to auscultation bilaterally Cardio: Rate: regular rate Rhythm: regular rhythm GI: Inspection: No distended Palpation (GI): Soft to palpation, not firm, nontender, no guarding and not rigid Skin: General skin exam: no rashes or lesions noted and elasticity normal Neuro: General: patient oriented x3 Cranial nerves: Yes Equal, round and reactive pupils present and Yes Bilaterally intact EOM present Cognition (Neuro): normal cognition Course Course Course Narrative: This is a Rapid Medical Exam performed in triage by Miesha Marie PA-C. Full HPI, ROS and PE to be performed by primary ED provider. 79-year-old male with a past medical history of AFib on Eliquis, HLD, mitral valve repair presenting to the ED c/o unusual sensation to test yesterday, intermittent. Denies other symptoms including pain, SOB or lightheadedness, dizziness, nausea PE: NAD, nontoxic appearing, ambulating with steady gait Plan: EKG, labs, CXR, SARs Medical Decision Making Medical Decision Making [facility] Narrative: 79-year-old male presents for evaluation of a chest sensation. He reports that it is not painful, he experiences pain. Given his history, a cardiac workup was initiated that included labs, chest x-ray, EKG. All this was reassuring, his EKG is nonischemic, troponin is negative despite 24 hours of the sensation, he rules out for ACS. No evidence of pleural effusion or pneumonia. He has no infectious symptoms whatsoever. His vital signs are within normal limits with the exception of a very mild hypertension of 140/60. He reports being treated for this. He is not tachycardic or hypoxic, I do not suspect pulmonary embolism as the source of his chest sensation. The patient will be discharged to follow up with his outpatient providers Differential Diagnosis Differential Diagnoses: The differential diagnosis associated with the presentation includes Chest pain GERD Chest wall pain Costochondritis PE Admission/Observation Consideration of admission/observation: Escalation of care including admission/observation considered Lab Data [facility] Lab Attestation statement: I reviewed the patient's lab results. No leukocytosis. The patient has a stable normocytic anemia. No significant left shift. No significant electrolyte abnormalities warranting intervention. The patient's BUN is chronically elevated and consistent with his baseline. Troponin within normal limits at 6.3. Given that his symptoms started yesterday in his troponin is within normal limits I do not see any indication to repeat this for a delta 10/10/25 16:13 10/10/25 16:13 Labs: Lab Results 10/10/25 10/10/25 Range/Units 16:10 16:13 WBC 4.9 (4.8-10.8) X10*3/uL RBC 3.97 L (4.60-5.80) X10*6/uL Hgb 12.0 L (14.0-18.0) g/dl Hct 38.3 L (42.0-52.0) % MCV 96.5 (80.0-98.0) fL MCH 30.2 (27.0-33.0) pg MCHC 31.3 (31.0-36.0) g/dl RDW 13.4 (11.0-16.0) % Plt Count 197 (160-400) X10*3/uL MPV 9.9 (9.4-12.4) fL Immature Gran % (Auto) 0.2 (0.0-0.4) % Neut % (Auto) 65.6 (45-73) % Lymph % (Auto) 14.2 L (20-40) % Randall % (Auto) 16.1 H (2-11) % Eos % (Auto) 3.7 (0-4) % Baso % (Auto) 0.2 (0-2) % Lymph # (Auto) 0.7 L (1.2-4.9) X10*3/uL Randall # (Auto) 0.8 (0.1-1.2) X10*3/uL Eos # (Auto) 0.2 (0.0-0.4) X10*3/uL Baso # (Auto) 0.0 (0.0-0.2) X10*3/uL Abs Immat Gran (auto) 0.01 (0.00-0.03) X10*3/uL Absolute Neuts (auto) 3.2 (2.0-8.3) x10*3/uL Absolute Nucleated RBC 0.000 (0.0-0.012) X10*3/uL Nucleated RBC % (auto) 0.0 (0.0-0.2) /100WBC Sodium 142 (135-145) mmol/L Potassium 4.5 (3.3-5.1) mmol/L Chloride 108 (96-108) mmol/L Carbon Dioxide 28 (22-29) mmol/L Anion Gap 11 L (12-20) BUN 29 H (9-16) mg/dL Creatinine 1.02 (0.5-1.4) mg/dL Estim Creat Clear Calc 60.1 Estimated GFR > 60 Random Glucose 97 (60-115) mg/dL Calcium 9.0 D (8.4-10.2) mg/dL Magnesium 2.2 (1.6-2.6) mg/dL Total Bilirubin 0.4 (0.0-1.0) mg/dL Direct Bilirubin 0.2 (0.0-0.5) mg/dL AST 42 H (5-37) U/L ALT 28 (0-40) U/L Alkaline Phosphatase 117 (39-117) U/L Troponin I High Sens 6.3 (<3.5-35.0) ng/L Total Protein 6.6 (6.5-8.0) g/dL Albumin 3.9 (3.5-5.0) g/dL TSH 3.43 (0.32-4.0) uIU/mL Influenza Type A (PCR) NEGATIVE (Negative) Influenza Type B (PCR) NEGATIVE (Negative) RSV RNA Qual (PCR) NEGATIVE (Negative) SARS-CoV-2 RNA (RT-PCR) NEGATIVE (Negative) Independent Interpretation I performed an independent interpretation of an: EKG Interpretation: Sinus rhythm with a rate of [address] segment elevation or depression. Nondiagnostic EKG Radiology Impression Discussion of test interpretation with radiology: I have reviewed the radiologist's reading. Radiologist Impression: FINDINGS: Cardiac monitoring device noted overlying the left heart. There is left-sided dual-lead pacer device in place with leads extending into the right atrium and right ventricle. There is mild cardiac enlargement. There is been prior median sternotomy and CABG, as well as an aortic valve replacement. There is a high riding aortic arch. Mild aortic mural calcifications. Lungs are hyperaerated bilaterally, with flattened hemidiaphragms, suggestive of COPD. There is mild biapical scarring, similar. Lungs are otherwise clear. There is no pneumothorax or pleural effusion. There is no focal osseous or soft tissue abnormality. XR/XR chest 2V IMPRESSION: 1. COPD. No active superimposed disease. Electronically signed by: Gustavo Matt MD 10/10/2025 04:04 PM [facility] Discharge Plan Discharge Clinical Impression: Chest pain Patient Disposition: Home, Self-Care Instructions: Chest Pain (ED) Additional Instructions: Your workup in the ER today was reassuring pain This includes your EKG, chest x-ray and labs. Follow up with your sld educational aide and primary doctor. Return for new or worsening symptoms Prescriptions: No Action metoprolol succinate 100 mg tablet extended release 24 hr 100 mg PO DAILY Eliquis 5 mg tablet 5 mg PO BID atorvastatin 10 mg tablet 10 mg PO BEDTIME furosemide 20 mg tablet 20 mg PO DAILY PreserVision AREDS [id number] [id number] capsule 1 cap PO BID ferrous sulfate 325 mg (65 mg iron) tablet,delayed release (DR/EC) 325 mg PO DAILY betamethasone valerate 0.1 % cream topical DAILY Interventions: ED Discharge Assessment Last Done: 10/10/25 17:55 Print Language: Portuguese
[2025-10-10 16:18] LABS: MANUAL DIFF FLAG NO
[2025-10-10 16:31] LABS: Hematocrit 38.3 % (42.0-52.0); Hemoglobin 12.0 g/dl (14.0-18.0); Imm Gran Abs Auto 0.01 X10*3/uL (0.00-0.03); Imm Gran Pct Auto 0.2 % (0.0-0.4); Lymphocytes Absolute Auto 0.7 X10*3/uL (1.2-4.9); Mean Corpuscular HGB Conc 31.3 g/dl (31.0-36.0); Mean Corpuscular Hemoglobin 30.2 pg (27.0-33.0); Mean Corpuscular Volume 96.5 fL (80.0-98.0); NRBC Abs Auto 0.000 X10*3/uL (0.0-0.012); NRBC Pct Auto 0.0 /100WBC (0.0-0.2); Platelet Count 197 X10*3/uL (160-400); Red Blood Count 3.97 X10*6/uL (4.60-5.80); White Blood Count 4.9 X10*3/uL (4.8-10.8)
[2025-10-10 16:55] LABS: Alanine Aminotransferase 28 U/L (0-40); Albumin Level 3.9 g/dL (3.5-5.0); Alkaline Phosphatase 117 U/L (39-117); Anion Gap 11 (12-20); Aspartate Amino Transferase 42 U/L (5-37); Blood Urea Nitrogen 29 mg/dL (9-16); Calcium 9.0 mg/dL (8.4-10.2); Carbon Dioxide 28 mmol/L (22-29); Chloride 108 mmol/L (96-108); Creatinine Clr Calc Pharmacy 60.1; Estimated Glomerular Filt Rate > 60; Magnesium 2.2 mg/dL (1.6-2.6); Potassium 4.5 mmol/L (3.3-5.1); Sodium 142 mmol/L (135-145); Total Protein 6.6 g/dL (6.5-8.0)
[2025-10-10 16:55] LABS: Resp Syncy Virus RNA Qual PCR NEGATIVE (Negative); SARS COV2 PCR INHOUSE NEGATIVE (Negative)
[2025-10-10 16:56] LABS: Troponin-I High Sensitivity 6.3 ng/L (<3.5-35.0)
[2025-10-10 17:55] VITALS: BP 140/60; PULSE 66; RESP 18; TEMP 36.2; O2SAT 96
== END 2025-10-10 18:17 | disposition home or self-care (01) ==
PROVIDERS: Physician Assistant; Emergency Provider Student in an Organized Health Care Education/Training Program; PCP Internal Medicine
DX: R07.9 Chest pain, unspecified (principal); I10 Essential (primary) hypertension; I48.91 Unspecified atrial fibrillation; Z95.1 Presence of aortocoronary bypass graft; Z79.899 Other long term (current) drug therapy; Z03.818 Encounter for observation for suspected exposure to other biological agents ruled out
CPT/HCPCS: 71046; 80048; 80076; 83735; 84443; 84484; 85025; 87637; 93005; 99212; 99283; 99284

== ENCOUNTER → 2025-10-10 15:35 | Outpatient (BNV) | payer MEDICARE, SELFPAY | PROVIDERS: Emergency Provider Student in an Organized Health Care Education/Training Program; PCP Internal Medicine; Visit Provider Internal Medicine | DX: I25.2 Old myocardial infarction (principal) | CPT/HCPCS: 93010 ==

== ENCOUNTER → 2025-10-10 15:48 | Outpatient (BNV) | payer MEDICARE, SELFPAY | PROVIDERS: PCP Internal Medicine; Visit Provider Radiology Diagnostic Radiology | DX: J44.9 Chronic obstructive pulmonary disease, unspecified (principal) | CPT/HCPCS: 71046 ==